=== PATIENT | male | born 1945 ===

== ENCOUNTER 2020-07-10 11:34 | Inpatient (IN) | payer BC, OTHER ==
--- NOTE | 2020-07-10 11:53 | EDM.PDOC ---
ED HPI GENERAL MEDICAL PROBLEM - General Chief Complaint: Respiratory Problem Stated Complaint: SHORTNESS OF BREATH Time Seen by Provider: 07/10/20 11:43 Source of Information: Reports: Patient, Retirement Records (Limited). Denies: Old Records (No [facility] records available) History Limitations: Reports: Altered Mental Status - History of Present Illness INITIAL COMMENTS - FREE TEXT/NARRATIVE: The patient was brought to the emergency room via ambulance with professional housing consultant accompaniment with O2 at 15 L/min by nonrebreather mask with no other treatment in route. The patient tested positive for [facility] the [facility] on 07/01/2020 with only mild symptoms at that time, although he did require supplemental O2 therapy during the initial few days of his infection. He was able to be returned back to room air until 07/07 when he began having progressive dyspnea and O2 requirement with O2 sat of only 85% on 4 L/min and a temperature of 101 degrees shortly prior to transfer to our facility. He is an extremely poor historian secondary to his baseline organic brain syndrome and current illness. More extensive history was obtained from [facility] records and also my personal telephone consultation with his [facility] nurse, Lazara. No apparent recent chest pain/pressure or anginal type symptoms. No known history of nausea, emesis, abdominal pain, UTI symptoms, etc. Onset: Gradual Onset Date: 07/07/20 Duration: Getting Worse Location: Reports: Other Quality: Reports: Same as Previous Episode (No pain) Severity: Severe (Dyspnea) Improves with: Reports: None Worsens with: Reports: None Context: Reports: Sick Contact (As above). Denies: Trauma Associated Symptoms: Reports: Confusion (Stable baseline?), Cough, cough w sputum, Fever/Chills, Shortness of Breath, Weakness (Mild generalized). 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 (As above) - Related Data Allergies Allergy/AdvReac Type Severity Reaction Status Date / Time metformin Allergy Cannot Verified 07/10/20 12:00 Remember Home Meds: Home Meds Acetaminophen [Tylenol] 650 mg PO Q4HR PRN 07/10/20 [History] Ascorbic Acid [Vitamin C] 1,000 mg PO BID 07/10/20 [History] Aspirin [Halfprin] 81 mg PO DAILY 07/10/20 [History] Carbidopa/Levodopa [Carbidopa-Levodopa 25-100] 1 tab PO TID 07/10/20 [History] Cholecalciferol (Vitamin D3) [Vitamin D3] 3,000 unit PO DAILY 07/10/20 [History] Escitalopram [Lexapro] 10 mg PO DAILY 07/10/20 [History] Finasteride 5 mg PO DAILY 07/10/20 [History] Liraglutide [Victoza 3-Rob] 1.8 mg SUBCUT DAILY 07/10/20 [History] Lovastatin 10 mg PO DAILY 07/10/20 [History] Mirtazapine 15 mg PO DAILY 07/10/20 [History] Prazosin [Minpress] 1 mg PO DAILY 07/10/20 [History] amLODIPine [Norvasc] 10 mg PO DAILY 07/10/20 [History] buPROPion HCL [Bupropion Xl] 300 mg PO DAILY 07/10/20 [History] dexAMETHasone [Decadron] 6 mg PO DAILY@199907/10/20 [History] glipiZIDE [Glucotrol] 5 mg PO BID 07/10/20 [History] lisinopriL [Lisinopril] 2.5 mg PO DAILY 07/10/20 [History] Past Medical History HEENT History: Reports: Cataract, Hard of Hearing, Impaired Vision, Other (See Below) Other HEENT History: Bilateral presbycusis. Patient wears glasses. Bilateral lower lid ptosis. Cardiovascular History: Reports: High Cholesterol, Hypertension, Other (See Below) Other Cardiovascular History: Varicose veins. Respiratory History: Reports: Sleep Apnea, Other (See Below) Other Respiratory History: Patient does use CPAP. Gastrointestinal History: Reports: Irritable Bowel Syndrome, Other (See Below) Other Gastrointestinal History: Umbilical hernia Genitourinary History: Reports: BPH, Prostate Disorder (BPH with PSA elevation?), Retention, Urinary, Urinary Incontinence Musculoskeletal History: Reports: Arthritis, Back Pain, Chronic, Osteoarthritis, Other (See Below) Other Musculoskeletal History: Spinal stenosis. Neurological History: Reports: Alzheimers Disease, Parkinson's, Other (See Below) Other Neuro History: Restless leg syndrome. Psychiatric History: Reports: Alzheimers Disease, Anxiety, Dementia, Depression, PTSD, Other (See Below) Other Psychiatric History: PTSD secondary to [place] experience. Endocrine/Metabolic History: Reports: Diabetes, Type II, IDDM Dermatologic History: Reports: Venous Stasis Dermatitis - Infectious Disease History Infectious Disease History: Reports: Novel Coronavirus (Positive on 07/01/2020.) - Past Surgical History Musculoskeletal Surgical History: Reports: Hip Replacement, Joint Replacement, Other (See Below) Other Musculoskeletal Surgeries/Procedures:: Left hip TEP with subsequent dislocation and possible postoperative infection. Other Surgical History Comment: Unknown. Incomplete records. Social & Family History - Family History Family Medical History: Unobtainable - Living Situation & Occupation Living situation: Reports: , Extended Care Facility ([facility]) Occupation: Retired ED ROS GENERAL - Review of Systems Review Of Systems: Comprehensive ROS is negative, except as noted in HPI. (Limited as above) ED EXAM, GENERAL - Physical Exam Exam: See Below Exam Limited By: Altered Mental Status General Appearance: Lethargic (Mild), Moderate Distress (Mild to moderate dyspnea) Eye Exam: Bilateral Eye: EOMI, Normal Inspection, PERRL Ears: Normal External Exam, Normal Canal, Hearing Grossly Normal, Normal TMs Nose: Clear Rhinorrhea Throat/Mouth: Normal Inspection, Normal Lips, Normal Teeth, Normal Gums, Normal Oropharynx, Normal Voice, No Airway Compromise. No: Dysphagia, Perioral Cyanosis Head: Atraumatic, Normocephalic. No: Facial Swelling, Facial Tenderness, Sinus Tenderness Neck: Supple, Non-Tender, Full Range of Motion, Carotid Bruit (Mild bilateral carotid bruits). No: Lymphadenopathy (L), Lymphadenopathy (R), Thyromegaly Respiratory/Chest: Chest Non-Tender, Respiratory Distress (Mild to moderate), Decreased Breath Sounds (As below), Rales (Severe bilateral diffuse rales, right greater than left with decreased breath sounds on the right side), Accessory Muscle Use (Mild), Retractions (Mild intercostal). No: Rhonchi, Wheezing Cardiovascular: Normal Peripheral Pulses, No Edema, No Gallop, No JVD, No Murmur (Heart sounds difficult to auscultate secondary to pulmonary findings as above), No Rub, Tachycardia (Regular rhythm). No: Gallop/S3, Gallop/S4, Friction Rub Peripheral Pulses: 2+: Radial (L), Radial (R), Dorsalis Pedis (L), Dorsalis Pedis (R) GI/Abdominal: Normal Bowel Sounds, Soft, Non-Tender, No Organomegaly, No Distention, No Abnormal Bruit, No Mass, Pelvis Stable, Hernia (2 cm nonincarcerated umbilical hernia), Other (Obese). No: Guarding (Male) Exam: Deferred Rectal (Males) Exam: Deferred Back Exam: Normal Inspection, Full Range of Motion. No: CVA Tenderness (L), CVA Tenderness (R), Muscle Spasm Extremities: Normal Range of Motion, Non-Tender, No Pedal Edema, Normal Capillary Refill, Other (Moderate venous stasis dermatitis of the anterior tibial regions bilaterally). No: Shanta's Sign Neurological: Normal Reflexes (Negative Babinski's with patient not able to perform complete neurological exam), Confused (Mild to moderate? Baseline), Disoriented, Slow to Respond (Mildly lethargic) Psychiatric: Normal Affect, Normal Mood Skin Exam: Dry, Intact, Normal Color, Rash (Venous stasis dermatitis as above). No: Diaphoretic, Ecchymosis, Petechiae, Wound/Incision Lymphatic: No Adenopathy #1 Interpretation EKG Date: 07/10/20 Time: 12:17 Rhythm: A-Flutter Rate (Beats/Min): 121 [place]: Normal (Left cardiac access) P-Wave: Absent QRS: Wide (0.14 seconds with artifactual conduction and probable repolarization changes without true bundle branch block) ST-T: Other (Diffuse nonspecific ST changes secondary to atrial flutter) QT: Normal [place]/PQ Interval: 2:1 AV conduction Comparison: NA - No Prior EKG EKG Interpretation Comments: 1. No acute ischemic changes 2. Atrial flutter with 2:1 AV conduction and secondary tachycardia Course - Vital Signs Last Recorded V/S: Last Vital Signs Temp 36.3 C 07/10/20 11:35 Pulse 120 H 07/10/20 11:35 Resp 32 H 07/10/20 11:35 BP 144/94 H 07/10/20 11:35 Pulse Ox 90 L 07/10/20 11:54 Vital Signs - 24 hr 07/10/20 07/10/20 07/10/20 11:35 11:54 13:54 Temperature [ 36.3 C Temporal] Pulse, 120 H Peripheral [ Left Pulse Oximetry] Respiratory 32 H Rate Blood Pressure 144/94 H [Right Upper Arm] O2 Sat by Pulse 90 L 90 L Oximetry O2 Sat by Pulse 90 L Oximetry [Non- Rebreather Mask ] - Orders/Labs/Meds Orders: Active Orders 24 hr Category Date Time Status Cardiac Monitoring [RC] . DIRECTED Care 07/10/20 11:54 Active EKG Documentation Completion [RC] ASDIRECTED Care 07/10/20 11:54 Active Oxygen Therapy, ED [RC] CONTINUOUS Care 07/10/20 11:54 Active Peripheral IV Care [RC] . DIRECTED Care 07/10/20 11:54 Active Pulse Oximetry [RC] CONTINUOUS Care 07/10/20 11:54 Active Up With Assistance [RC] PFP Care 07/10/20 11:54 Active Vital Signs [RC] PFP Care 07/10/20 11:54 Active Nothing per Oral Now Diet [DIET] Diet 07/10/20 Breakfast Active Chest 1V Frontal [CR] Stat Exams 07/10/20 11:54 Taken CULTURE BLOOD [BC] Stat Lab 07/10/20 12:13 Received CULTURE BLOOD [BC] Stat Lab 07/10/20 12:20 Received CULTURE URINE [RM] Routine Lab 07/10/20 11:58 Ordered UA W/MICROSCOPIC [URIN] Stat Lab 07/10/20 11:55 Ordered Sodium Chloride 0.9% [Saline Flush] Med 07/10/20 11:54 Active 10 ml FLUSH ASDIRECTED PRN cefTRIAXone [Rocephin] 1 gm Med 07/10/20 13:30 Active Sodium Chloride 0.9% [Normal Saline] 100 ml IV Q12H Blood Culture x2 Reflex Set [OM.PC] Urgent Oth 07/10/20 11:58 Ordered Isolation [COMM] Routine Oth 07/10/20 11:57 Active Obtain Past Medical Record [OM.PC] Urgent Oth 07/10/20 11:54 Active Peripheral IV Insertion Adult [OM.PC] Stat Oth 07/10/20 11:54 Ordered Resuscitation Status Stat Resus Stat 07/10/20 11:54 Ordered Medication Orders Ceftriaxone Sodium 1 gm/ (Sodium Chloride) 100 mls @ 200 mls/hr IV Q12H TANNER Sodium Chloride (Saline Flush) 10 ml FLUSH ASDIRECTED PRN PRN Reason: Keep Vein Open Last Admin: 07/10/20 12:46 Dose: 10 ml Documented by: TIANNA Labs: Laboratory Tests 07/10/20 07/10/20 07/10/20 Range/Units 11:45 11:45 11:45 WBC 12.8 H (4.0-10.2) K/uL RBC 4.35 (4.33-5.41) M/uL Hgb 13.6 (13.1-16.8) g/dL Hct 40.6 (39.0-49.0) % MCV 93.3 (84.0-98.0) fL MCH 31.3 (28.2-33.3) pg MCHC 33.5 (31.7-36.0) g/dL RDW 13.2 (11.2-14.1) % Plt Count 164 (150-350) K/uL Neut % (Auto) 94.9 H (45.0-80.0) % Lymph % (Auto) 3.4 L (10.0-50.0) % [place] % (Auto) 1.7 L (2.0-14.0) % Eos % (Auto) 0.0 (0.0-5.0) % Baso % (Auto) 0.0 (0.0-2.0) % Neut # (Auto) 12.10 H (1.40-7.00) K/uL Lymph # (Auto) 0.43 L (0.50-3.50) K/uL [place] # (Auto) 0.22 (0.00-1.00) K/uL Eos # (Auto) 0.00 (0.00-0.50) K/uL Baso # (Auto) 0.00 (0.00-0.20) K/uL PT 11.6 (9.5-12.0) SEC INR 1.2 APTT 29.2 (24.5-32.8) SEC D-Dimer, Quantitative 1070 H (0-400) ng/mL Sodium (136-145) mmol/L Potassium (3.5-5.1) mmol/L Chloride (98-107) mmol/L Carbon Dioxide (21.0-32.0) mmol/L BUN (7-18) mg/dL Creatinine (0.51-1.17) mg/dL Est Cr Clr Drug Dosing mL/min Estimated GFR (MDRD) mL/min Glucose (74-106) mg/dL Lactic Acid (0.4-2.0) mmol/L Uric Acid (2.6-7.2) mg/dL Calcium (8.5-10.1) mg/dL Magnesium (1.8-2.4) mg/dL Total Bilirubin (0.2-1.0) mg/dL AST (15-37) U/L ALT (12-78) U/L Alkaline Phosphatase (46-116) IU/L Creatine Kinase (26-308) U/L Creatine Kinase Index (0.0-2.5) % CK-MB (CK-2) (0.00-3.60) ng/mL Troponin I (0.000-0.056) ng/mL NT-Pro-B Natriuret Pep (0-125) pg/mL Total Protein (6.4-8.2) g/dL Albumin (3.4-5.0) g/dL TSH, Ultra Sensitive (0.358-3.740) mIU/mL 07/10/20 07/10/20 Range/Units 11:45 11:45 WBC (4.0-10.2) K/uL RBC (4.33-5.41) M/uL Hgb (13.1-16.8) g/dL Hct (39.0-49.0) % MCV (84.0-98.0) fL MCH (28.2-33.3) pg MCHC (31.7-36.0) g/dL RDW (11.2-14.1) % Plt Count (150-350) K/uL Neut % (Auto) (45.0-80.0) % Lymph % (Auto) (10.0-50.0) % [place] % (Auto) (2.0-14.0) % Eos % (Auto) (0.0-5.0) % Baso % (Auto) (0.0-2.0) % Neut # (Auto) (1.40-7.00) K/uL Lymph # (Auto) (0.50-3.50) K/uL [place] # (Auto) (0.00-1.00) K/uL Eos # (Auto) (0.00-0.50) K/uL Baso # (Auto) (0.00-0.20) K/uL PT (9.5-12.0) SEC INR APTT (24.5-32.8) SEC D-Dimer, Quantitative (0-400) ng/mL Sodium 134 L (136-145) mmol/L Potassium 4.8 (3.5-5.1) mmol/L Chloride 98 (98-107) mmol/L Carbon Dioxide 25.2 (21.0-32.0) mmol/L BUN 32 H (7-18) mg/dL Creatinine 1.10 (0.51-1.17) mg/dL Est Cr Clr Drug Dosing 74.25 mL/min Estimated GFR (MDRD) > 60 mL/min Glucose 260 H (74-106) mg/dL Lactic Acid 2.5 H (0.4-2.0) mmol/L Uric Acid 4.1 (2.6-7.2) mg/dL Calcium 8.2 L (8.5-10.1) mg/dL Magnesium 1.6 L (1.8-2.4) mg/dL Total Bilirubin 1.1 H (0.2-1.0) mg/dL AST 24 (15-37) U/L ALT 13 (12-78) U/L Alkaline Phosphatase 84 (46-116) IU/L Creatine Kinase 74 (26-308) U/L Creatine Kinase Index 2.0 (0.0-2.5) % CK-MB (CK-2) 1.50 (0.00-3.60) ng/mL Troponin I 0.005 (0.000-0.056) ng/mL NT-Pro-B Natriuret Pep 1980 H (0-125) pg/mL Total Protein 6.6 (6.4-8.2) g/dL Albumin 2.6 L (3.4-5.0) g/dL TSH, Ultra Sensitive 1.251 (0.358-3.740) mIU/mL Blood cultures x2 were collected Meds: Medications Generic Name Dose Route Start Last Admin Trade Name Freq PRN Reason Stop Dose Admin Ceftriaxone Sodium 1 gm/ 100 mls @ 200 mls/hr 07/10/20 13:30 Sodium Chloride IV Q12H TANNER Sodium Chloride 10 ml 07/10/20 11:54 07/10/20 12:46 Saline Flush FLUSH 10 ml ASDIRECTED PRN Administration Keep Vein Open Discontinued Medications Generic Name Dose Route Start Last Admin Trade Name Ashvin PRN Reason Stop Dose Admin Acetaminophen 650 mg 07/10/20 11:58 07/10/20 12:46 Tylenol PO 07/10/20 11:59 650 mg NOW ONE Administration Famotidine 40 mg 07/10/20 11:54 07/10/20 12:46 Pepcid IVPUSH 07/10/20 11:55 40 mg ONETIME ONE Administration - Radiology Interpretation Free Text/Narrative:: property assessment monitor shows atrial flutter with heart rate in the 120s with no ectopy or arrhythmia Chest x-ray, portable, shows severe bilateral pulmonary infiltrates, right greater than left, with mild cardiomegaly and probable concomitant mild CHF. Moderate COPD changes with no pneumothorax. Departure - Departure Time of Disposition: 14:15 Disposition: Admitted As Inpatient 67 Clinical Impression: Need for comfort care, COVID-19, D-dimer, elevated, Hypoalbuminemia, Hypo calcemia, Elevated lactic acid level, Diabetes mellitus, Confusion, Mixed anxiety depressive disorder, Sleep apnea CHF (congestive heart failure) Qualifiers: Heart failure type: unspecified Heart failure chronicity: acute Qualified Code(s): I50.9 - Heart failure, unspecified COPD (chronic obstructive pulmonary disease) Qualifiers: COPD type: COPD with acute lower respiratory infection Qualified Code(s): J44.0 - Chronic obstructive pulmonary disease with (acute) lower respiratory infection Pneumonia Qualifiers: Pneumonia type: due to unspecified organism Laterality: bilateral Lung location: unspecified part of lung Qualified Code(s): J18.9 - Pneumonia, unspecified organism - Discharge Information *PRESCRIPTION DRUG MONITORING PROGRAM REVIEWED*: Not Applicable *COPY OF PRESCRIPTION DRUG MONITORING REPORT IN PATIENT AUSTEN: Not Applicable Referrals: Michelle Padron PA-C [Primary Care Provider] - Forms: ED Department Discharge Care Plan Goals: See plan Sepsis Event Note (ED) - Evaluation Sepsis Screening Result: Possible Sepsis Risk - Focused Exam Vital Signs: Vital Signs Temp Pulse Resp BP Pulse Ox 07/10/20 11:54 90 L 07/10/20 11:35 36.3 C 120 H 32 H 144/94 H 90 L - Problem List & Annotations (1) Pneumonia SNOMED Code(s): 781139391 Code(s): J18.9 - PNEUMONIA, UNSPECIFIED ORGANISM Status: Acute Priority: High Current Visit: Yes Onset Date: 07/10/20 Annotation/Comment:: Possible concomitant pneumonia. IV Rocephin initiated on admission. Additional oral doxycycline therapy secondary to his COVID-19 infection. Secondary to severe pulmonary findings and guarded status initiate additional IV vancomycin. Continue IV Pepcid as GI prophylaxis and as treatment for his COVID-19. Various therapeutic options were discussed with the patient's /POA and daughter, Jeannine, who are requesting initiation of IV remdesivir and continuation of previous oral Decadron, which will be changed to IV preparation. Patient is already on vitamin C, vitamin D, and zinc as per [facility] COVID-19 protocol. The family is also requesting initiation of convalescent plasma, which will not be available until tomorrow. NO CODE STATUS and no further transfer to [place] was confirmed with the family. Continue aggressive O2 therapy with 100% O2 by nonrebreather mask for now. Consider initiating his current CPAP therapy, proning, etc.. Patient may possibly within the next 24 hours. Qualifiers: Pneumonia type: due to unspecified organism Laterality: bilateral Lung location: unspecified part of lung Qualified Code(s): J18.9 - Pneumonia, unspecified organism (2) COVID-19 SNOMED Code(s): 347149349 Code(s): U07.1 - COVID-19 Status: Acute Priority: High Current Visit: Yes Onset Date: ~07/01/20 Annotation/Comment:: COVID-19 positive on 07/01/2020 as above with initial oxygen requirement and improvement to room air at the [facility] with subsequent decompensation as per HPI as above. Prognosis extremely poor. (3) Need for comfort care SNOMED Code(s): 310174619, 035567618 Code(s): CEM5406 - Status: Acute Priority: High Current Visit: Yes Annotation/Comment:: Confirmed with [facility] and patient's /POA and his daughter as above. They are aware that patient may not survive this hospitalization with emotional support provided. (4) Elevated lactic acid level SNOMED Code(s): 1096965 Code(s): R79.89 - OTHER SPECIFIED ABNORMAL FINDINGS OF BLOOD CHEMISTRY Status: Acute Priority: High Current Visit: Yes Onset Date: 07/10/20 Annotation/Comment:: Sepsis protocol initiated, including IV antibiotics as above. Note that the patient's blood pressures are excellent at this time with significant CHF by chest x-ray and BNP elevation. Observe closely for now with consideration of IV lactated Ringer's bolus with caution depending on his clinical course. (5) CHF (congestive heart failure) SNOMED Code(s): 86249635 Code(s): I50.9 - HEART FAILURE, UNSPECIFIED Status: Acute Priority: High Current Visit: Yes Onset Date: 07/10/20 Annotation/Comment:: Patient is a poor historian secondary to his organic brain syndrome. Probable concomitant CHF with IV Lasix to be initiated with caution secondary to his lactic acid elevation shortly after admission. No known previous history of coronary artery disease or CHF. No further work-up, including echocardiogram, etc., secondary to his comfort care status. Qualifiers: Heart failure type: unspecified Heart failure chronicity: acute Qualified Code(s): I50.9 - Heart failure, unspecified (6) D-dimer, elevated SNOMED Code(s): 711841527 Code(s): R79.89 - OTHER SPECIFIED ABNORMAL FINDINGS OF BLOOD CHEMISTRY Status: Acute Priority: High Current Visit: Yes Onset Date: 07/10/20 Annotation/Comment:: Further work-up per the family's request. Venous Doppler studies of the lower extremities and CT of the chest shortly after admission. Initiate subcutaneous Lovenox therapy at VTE dose especially in light of current Covid infection, however downward adjustment depending on the results of above findings (7) Hypoalbuminemia SNOMED Code(s): 256936245 Code(s): E88.09 - OTH DISORDERS OF PLASMA-PROTEIN METABOLISM, NEC Status: Acute Priority: Medium Current Visit: Yes Onset Date: 07/10/20 Annotation/Comment:: Observe for now (8) Hypocalcemia SNOMED Code(s): 9620306 Code(s): E83.51 - HYPOCALCEMIA Status: Acute Priority: Medium Current Visit: Yes Onset Date: 07/10/20 Annotation/Comment:: Observe for now (9) COPD (chronic obstructive pulmonary disease) SNOMED Code(s): 93517666 Code(s): J44.9 - CHRONIC OBSTRUCTIVE PULMONARY DISEASE, UNSPECIFIED Status: Chronic Priority: High Current Visit: Yes Annotation/Comment:: Patient is in a negative pressure room. Nebulizer treatments to be initiated on admission with patient not able to tolerate inhalers at this time. Qualifiers: COPD type: COPD with acute lower respiratory infection Qualified Code(s): J44.0 - Chronic obstructive pulmonary disease with (acute) lower respiratory infection (10) Confusion SNOMED Code(s): 256957839 Code(s): R41.0 - DISORIENTATION, UNSPECIFIED Status: Chronic Priority: Medium Current Visit: Yes Annotation/Comment:: Note history of organic brain syndrome. Stable despite current infection? Note comfort care as above. 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 Observe for now. (13) Sleep apnea SNOMED Code(s): 45340929 Code(s): G47.30 - SLEEP APNEA, UNSPECIFIED Status: Chronic Priority: Medium Current Visit: Yes Annotation/Comment:: As above Qualifiers: Sleep apnea type: unspecified type Qualified Code(s): G47.30 - Sleep apnea, unspecified - Problem List Review Problem List Initiated/Reviewed/Updated: Yes - My Orders Last 24 Hours: My Active Orders 07/10/20 Breakfast Nothing per Oral Now Diet [DIET] 07/10/20 11:54 Cardiac Monitoring [RC] . DIRECTED EKG Documentation Completion [RC] ASDIRECTED Oxygen Therapy, ED [RC] CONTINUOUS Peripheral IV Care [RC] . DIRECTED Pulse Oximetry [RC] CONTINUOUS Up With Assistance [RC] PFP Vital Signs [RC] PFP Chest 1V Frontal [CR] Stat Sodium Chloride 0.9% [Saline Flush] 10 ml FLUSH ASDIRECTED PRN Obtain Past Medical Record [OM.PC] Urgent Peripheral IV Insertion Adult [OM.PC] Stat Resuscitation Status Stat 07/10/20 11:55 UA W/MICROSCOPIC [URIN] Stat 07/10/20 11:57 Isolation [COMM] Routine 07/10/20 11:58 CULTURE URINE [RM] Routine Blood Culture x2 Reflex Set [OM.PC] Urgent 07/10/20 12:13 CULTURE BLOOD [BC] Stat 07/10/20 12:20 CULTURE BLOOD [BC] Stat 07/10/20 13:30 cefTRIAXone [Rocephin] 1 gm Sodium Chloride 0.9% [Normal Saline] 100 ml IV Q12H - Assessment/Plan Last 24 Hours: My Active Orders 07/10/20 Breakfast Nothing per Oral Now Diet [DIET] 07/10/20 11:54 Cardiac Monitoring [RC] . DIRECTED EKG Documentation Completion [RC] ASDIRECTED Oxygen Therapy, ED [RC] CONTINUOUS Peripheral IV Care [RC] . DIRECTED Pulse Oximetry [RC] CONTINUOUS Up With Assistance [RC] PFP Vital Signs [RC] PFP Chest 1V Frontal [CR] Stat Sodium Chloride 0.9% [Saline Flush] 10 ml FLUSH ASDIRECTED PRN Obtain Past Medical Record [OM.PC] Urgent Peripheral IV Insertion Adult [OM.PC] Stat Resuscitation Status Stat 07/10/20 11:55 UA W/MICROSCOPIC [URIN] Stat 07/10/20 11:57 Isolation [COMM] Routine 07/10/20 11:58 CULTURE URINE [RM] Routine Blood Culture x2 Reflex Set [OM.PC] Urgent 07/10/20 12:13 CULTURE BLOOD [BC] Stat 07/10/20 12:20 CULTURE BLOOD [BC] Stat 07/10/20 13:30 cefTRIAXone [Rocephin] 1 gm Sodium Chloride 0.9% [Normal Saline] 100 ml IV Q12H Assessment:: As above Plan: As above. Extensive precautions were given to the patient, who is in agreement with the treatment plan. The patient will require about 3-4 days of inpatient/ acute care secondary to multiple health problems as above. Prognosis is extremely guarded secondary to multiple health issues as above.
[2020-07-10] MEDS ORDERED: Famotidine 20 MG/2 ML SDV IVPUSH ONE (11:54)
--- NOTE | 2020-07-10 11:54 | EDM.PDOC ---
ED HPI GENERAL MEDICAL PROBLEM - General Chief Complaint: Respiratory Problem Stated Complaint: SHORTNESS OF BREATH Time Seen by Provider: 07/10/20 11:45 Source of Information: Reports: Patient - History of Present Illness Onset: Gradual Course - Vital Signs Last Recorded V/S: Last Vital Signs Temp 36.3 C 07/10/20 11:35 Pulse 120 H 07/10/20 11:35 Resp 32 H 07/10/20 11:35 BP 144/94 H 07/10/20 11:35 Pulse Ox 90 L 07/10/20 11:35 Departure - Discharge Information Forms: ED Department Discharge Sepsis Event Note (ED) - Evaluation Sepsis Screening Result: Possible Sepsis Risk - Focused Exam Vital Signs: Vital Signs Temp Pulse Resp BP Pulse Ox 07/10/20 11:35 36.3 C 120 H 32 H 144/94 H 90 L
[2020-07-10] MEDS ORDERED: Acetaminophen 325 MG Tab PO ONE (11:58)
[2020-07-10 12:33] LABS: PTT,PARTIAL THROMBOPLSTIN TIME 29.2 SEC (24.5-32.8)
[2020-07-10 12:46] LABS: CHLORIDE,CL 98 mmol/L (98-107); SODIUM,NA 134 mmol/L (136-145)
[2020-07-10] MEDS: Sodium Chloride 0.9% 10 ML Syringe FLUSH PRN ×6 (12:46→21:03)
[2020-07-10] MEDS ORDERED: cefTRIAXone 1 GM in Sodium Chloride 0.9% 100 ML IV SCH (13:30)
[2020-07-10] MEDS ORDERED: Temazepam 15 MG Cap PO PRN (14:47)
[2020-07-10] MEDS ORDERED: Doxycycline Monohydrate 100 MG Cap PO ONE (14:51)
[2020-07-10] MEDS ORDERED: 50% Dextrose in Water 50 ML Syringe IV PRN (14:54)
[2020-07-10] MEDS ORDERED: Glucagon,Human Recombinant 1 MG Vial IM PRN (14:54)
[2020-07-10] MEDS ORDERED: Sodium Chloride 0.9% 250 ML IV SCH (15:30)
[2020-07-10] MEDS ORDERED: Iopamidol 755 Mg/ML 100 ML Bottle IVPUSH ONE (15:33)
[2020-07-10] MEDS ORDERED: REMDESIVIR 200 MG in Sodium Chloride 0.9% 250 ML IV ONE (16:00)
[2020-07-10] MEDS: Furosemide 40 MG/4 ML VIAL IVPUSH SCH (17:20)
[2020-07-10] MEDS ORDERED: Enoxaparin 100 MG/1 ML Syringe SUBCUT SCH (18:00)
[2020-07-10] MEDS: Potassium Chloride 20 MEQ Tab.ER PO SCH (18:45)
[2020-07-10] MEDS: Dextromethorphan/guaiFENesin 600-30 MG Tab.ER PO SCH (18:45)
[2020-07-10] MEDS: Carbidopa/Levodopa 25-100 MG Tab PO SCH (18:46)
[2020-07-10] MEDS: Ascorbic Acid 500 MG Tab PO SCH (18:46)
[2020-07-10] MEDS: Insulin Lispro 100 Units/ML 3 ML Vial SUBCUT SCH ×2 (18:46→21:07)
[2020-07-10] MEDS: Dexamethasone 10 MG/ML SDV IVPUSH SCH (20:42)
[2020-07-11] MEDS: Furosemide 40 MG/4 ML VIAL IVPUSH SCH ×3 (00:11→16:06)
[2020-07-11] MEDS ORDERED: cefTRIAXone 1 GM in Sodium Chloride 0.9% 100 ML IV SCH (01:00)
[2020-07-11 07:51] LABS: HEMOGLOBIN A1C 6.8 % (4.3-5.7)
[2020-07-11] MEDS: Insulin Lispro 100 Units/ML 3 ML Vial SUBCUT SCH ×4 (07:59→21:23)
[2020-07-11] MEDS ORDERED: amLODIPine 5 MG Tab PO SCH (08:00)
[2020-07-11] MEDS: Sodium Chloride 0.9% 10 ML Syringe FLUSH PRN ×6 (08:02→19:39)
[2020-07-11] MEDS: Cholecalciferol (Vitamin D3) 25 MCG Tab PO SCH (08:05)
[2020-07-11] MEDS: Potassium Chloride 20 MEQ Tab.ER PO SCH ×3 (08:05→17:52)
[2020-07-11] MEDS: buPROPion 150 MG Tab.ER PO SCH (08:06)
[2020-07-11] MEDS: Carbidopa/Levodopa 25-100 MG Tab PO SCH ×3 (08:06→17:52)
[2020-07-11] MEDS: Finasteride 5 MG Tab PO SCH (08:06)
[2020-07-11] MEDS: Dextromethorphan/guaiFENesin 600-30 MG Tab.ER PO SCH ×2 (08:06→17:52)
[2020-07-11] MEDS: Prazosin 1 MG Cap PO SCH (08:06)
[2020-07-11] MEDS: Ascorbic Acid 500 MG Tab PO SCH ×2 (08:06→17:53)
[2020-07-11] MEDS: Mirtazapine 15 MG Tab PO SCH (08:06)
[2020-07-11] MEDS: atorvaSTATin 10 MG Tab PO SCH (08:07)
[2020-07-11] MEDS: Lisinopril 5 MG Tab PO SCH (08:07)
[2020-07-11] MEDS: Escitalopram 20 MG Tab PO SCH (08:08)
[2020-07-11 08:21] LABS: CHLORIDE,CL 98 mmol/L (98-107); SODIUM,NA 136 mmol/L (136-145)
[2020-07-11] MEDS ORDERED: Diltiazem 25 MG/5 ML SDV IVPUSH ONE (09:42)
[2020-07-11] MEDS: Famotidine 20 MG/2 ML SDV IVPUSH SCH (11:10)
--- NOTE | 2020-07-11 11:14 | PCM.PN ---
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 Denies: Ambulating, New Symptoms Pain Score: 0 - Review of Systems General: Reports: Weakness (Stable), Fatigue (Stable). Denies: Fever, Malaise, Chills, Night Sweats, Appetite (Adequate) HEENT: Reports: Post Nasal Drip, Sinus Congestion Pulmonary: Reports: Shortness of Breath, Cough. Denies: Sputum, Hemoptysis, Wheezing Cardiovascular: Reports: Dyspnea on Exertion, Orthopnea. Denies: Chest Pain, Edema Gastrointestinal: Reports: Difficulty Swallowing. Denies: Abdominal Pain, Constipation, Decreased Appetite, Diarrhea, Flatus, Hematochezia, Melena, Nausea, Vomiting Genitourinary: Reports: Incontinence Musculoskeletal: Reports: No Symptoms Skin: Reports: Bruising (Abdominal secondary to Lovenoxexpected). Denies: Diaphoresis Neurological: Reports: Confusion (Stable baseline), Weakness (As above) Psychiatric: Reports: Confusion. Denies: Agitation, Cravings, Hallucinations - Patient Data Vitals - Most Recent: Last Vital Signs Temp 36.2 C 07/11/20 11:01 Pulse 120 H 07/11/20 11:01 Resp 24 H 07/11/20 11:01 BP 109/57 L 07/11/20 11:01 Pulse Ox 88 L 07/11/20 11:01 Vital Signs - 24 hr 07/10/20 07/10/20 07/10/20 11:35 11:54 13:54 Temperature [ 36.3 C Temporal] Pulse, 120 H Peripheral [ Left Pulse Oximetry] Respiratory 32 H Rate Blood Pressure Blood Pressure [Left Upper Arm ] Blood Pressure 144/94 H [Right Upper Arm] O2 Sat by Pulse 90 L 90 L Oximetry O2 Sat by Pulse 90 L Oximetry [Non- Rebreather Mask ] 07/10/20 07/10/20 07/10/20 14:29 14:47 16:47 Temperature [ 36.1 C 36.3 C Temporal] Pulse, 118 H 120 H Peripheral [ Left Pulse Oximetry] Respiratory 32 H 32 H Rate Blood Pressure Blood Pressure 125/77 [Left Upper Arm ] Blood Pressure 127/79 [Right Upper Arm] O2 Sat by Pulse 91 L 90 L 91 L Oximetry O2 Sat by Pulse Oximetry [Non- Rebreather Mask ] 07/10/20 07/10/20 07/11/20 18:00 21:09 00:00 Temperature [ 36.7 C 36.8 C 36.1 C Temporal] Pulse, 118 H 118 H 119 H Peripheral [ Left Pulse Oximetry] Respiratory 32 H 28 H 30 H Rate Blood Pressure Blood Pressure 148/67 H 136/84 112/47 L [Left Upper Arm ] Blood Pressure [Right Upper Arm] O2 Sat by Pulse 90 L 87 L 88 L Oximetry O2 Sat by Pulse Oximetry [Non- Rebreather Mask ] 07/11/20 07/11/20 07/11/20 02:00 04:00 06:00 Temperature [ 36.2 C Temporal] Pulse, 118 H 119 H 120 H Peripheral [ Left Pulse Oximetry] Respiratory 28 H Rate Blood Pressure Blood Pressure 139/88 [Left Upper Arm ] Blood Pressure [Right Upper Arm] O2 Sat by Pulse 94 L 87 L 87 L Oximetry O2 Sat by Pulse Oximetry [Non- Rebreather Mask ] 07/11/20 07/11/20 07/11/20 07:25 08:06 08:07 Temperature [ 36.2 C Temporal] Pulse, 120 H Peripheral [ Left Pulse Oximetry] Respiratory 36 H Rate Blood Pressure 134/70 134/70 Blood Pressure 134/70 [Left Upper Arm ] Blood Pressure [Right Upper Arm] O2 Sat by Pulse 90 L Oximetry O2 Sat by Pulse Oximetry [Non- Rebreather Mask ] 07/11/20 11:01 Temperature [ 36.2 C Temporal] Pulse, 120 H Peripheral [ Left Pulse Oximetry] Respiratory 24 H Rate Blood Pressure Blood Pressure 109/57 L [Left Upper Arm ] Blood Pressure [Right Upper Arm] O2 Sat by Pulse 88 L Oximetry O2 Sat by Pulse Oximetry [Non- Rebreather Mask ] Weight - Most Recent: 125.645 kg I&O - Last 24 Hours: Intake & Output 07/10/20 07/11/20 07/11/20 22:59 06:59 14:59 Intake Total 792 Output Total 1500 Balance -708 Imaging Impressions - Last 24 Hours: panel monitor shows atrial flutter with heart rate in the 110s to 120s Chest x-ray, portable, shows persistent moderate bilateral pulmonary infiltrates particularly in the right upper lobe. Moderate COPD changes with mild cardiomegaly and probable concomitant CHF with Mickey B lines. No pneumothorax Lab Results Last 24 Hours: Laboratory Results - last 24 hr 07/10/20 07/10/20 07/10/20 Range/Units 11:45 11:45 11:45 WBC 12.8 H (4.0-10.2) K/uL RBC 4.35 (4.33-5.41) M/uL Hgb 13.6 (13.1-16.8) g/dL Hct 40.6 (39.0-49.0) % MCV 93.3 (84.0-98.0) fL MCH 31.3 (28.2-33.3) pg MCHC 33.5 (31.7-36.0) g/dL RDW 13.2 (11.2-14.1) % Plt Count 164 (150-350) K/uL Neut % (Auto) 94.9 H (45.0-80.0) % Lymph % (Auto) 3.4 L (10.0-50.0) % Phillips % (Auto) 1.7 L (2.0-14.0) % Eos % (Auto) 0.0 (0.0-5.0) % Baso % (Auto) 0.0 (0.0-2.0) % Neut # (Auto) 12.10 H (1.40-7.00) K/uL Lymph # (Auto) 0.43 L (0.50-3.50) K/uL Phillips # (Auto) 0.22 (0.00-1.00) K/uL Eos # (Auto) 0.00 (0.00-0.50) K/uL Baso # (Auto) 0.00 (0.00-0.20) K/uL PT 11.6 (9.5-12.0) SEC INR 1.2 APTT 29.2 (24.5-32.8) SEC D-Dimer, Quantitative 1070 H (0-400) ng/mL Sodium (136-145) mmol/L Potassium (3.5-5.1) mmol/L Chloride (98-107) mmol/L Carbon Dioxide (21.0-32.0) mmol/L BUN (7-18) mg/dL Creatinine (0.51-1.17) mg/dL Est Cr Clr Drug Dosing mL/min Estimated GFR (MDRD) mL/min Glucose (74-106) mg/dL POC Glucose (65-110) mg/dl Hemoglobin A1c (4.3-5.7) % Lactic Acid (0.4-2.0) mmol/L Uric Acid (2.6-7.2) mg/dL Calcium (8.5-10.1) mg/dL Magnesium (1.8-2.4) mg/dL Total Bilirubin (0.2-1.0) mg/dL AST (15-37) U/L ALT (12-78) U/L Alkaline Phosphatase (46-116) IU/L Creatine Kinase (26-308) U/L Creatine Kinase Index (0.0-2.5) % CK-MB (CK-2) (0.00-3.60) ng/mL Troponin I (0.000-0.056) ng/mL C-Reactive Protein (<=0.9) mg/dL NT-Pro-B Natriuret Pep (0-125) pg/mL Total Protein (6.4-8.2) g/dL Albumin (3.4-5.0) g/dL Triglycerides (30-150) mg/dL Cholesterol (100-200) mg/dL LDL Cholesterol, Calc (0-100) mg/dL HDL Cholesterol (40-60) mg/dL TSH, Ultra Sensitive (0.358-3.740) mIU/mL Specimen Type Urine Color Urine Appearance Urine pH (5.0-9.0) Ur Specific Leslie (1.005-1.030) Urine Protein (NEGATIVE) mg/dL Urine Glucose (UA) (NEGATIVE) mg/dL Urine Ketones (NEGATIVE) mg/dL Urine Occult Blood (NEGATIVE) Urine Nitrite (NEGATIVE) Urine Bilirubin (NEGATIVE) Urine Urobilinogen (0.2-1.0) E.U./dL Ur Leukocyte Esterase (NEGATIVE) Urine RBC /HPF Urine WBC /HPF Ur Epithelial Cells /LPF Urine Bacteria (NONE TO FEW) /HPF Blood Type 07/10/20 07/10/20 07/10/20 Range/Units 11:45 11:45 15:16 WBC (4.0-10.2) K/uL RBC (4.33-5.41) M/uL Hgb (13.1-16.8) g/dL Hct (39.0-49.0) % MCV (84.0-98.0) fL MCH (28.2-33.3) pg MCHC (31.7-36.0) g/dL RDW (11.2-14.1) % Plt Count (150-350) K/uL Neut % (Auto) (45.0-80.0) % Lymph % (Auto) (10.0-50.0) % Phillips % (Auto) (2.0-14.0) % Eos % (Auto) (0.0-5.0) % Baso % (Auto) (0.0-2.0) % Neut # (Auto) (1.40-7.00) K/uL Lymph # (Auto) (0.50-3.50) K/uL Phillips # (Auto) (0.00-1.00) K/uL Eos # (Auto) (0.00-0.50) K/uL Baso # (Auto) (0.00-0.20) K/uL PT (9.5-12.0) SEC INR APTT (24.5-32.8) SEC D-Dimer, Quantitative (0-400) ng/mL Sodium 134 L (136-145) mmol/L Potassium 4.8 (3.5-5.1) mmol/L Chloride 98 (98-107) mmol/L Carbon Dioxide 25.2 (21.0-32.0) mmol/L BUN 32 H (7-18) mg/dL Creatinine 1.10 (0.51-1.17) mg/dL Est Cr Clr Drug Dosing 74.25 mL/min Estimated GFR (MDRD) > 60 mL/min Glucose 260 H (74-106) mg/dL POC Glucose (65-110) mg/dl Hemoglobin A1c (4.3-5.7) % Lactic Acid 2.5 H (0.4-2.0) mmol/L Uric Acid 4.1 (2.6-7.2) mg/dL Calcium 8.2 L (8.5-10.1) mg/dL Magnesium 1.6 L (1.8-2.4) mg/dL Total Bilirubin 1.1 H (0.2-1.0) mg/dL AST 24 (15-37) U/L ALT 13 (12-78) U/L Alkaline Phosphatase 84 (46-116) IU/L Creatine Kinase 74 (26-308) U/L Creatine Kinase Index 2.0 (0.0-2.5) % CK-MB (CK-2) 1.50 (0.00-3.60) ng/mL Troponin I 0.005 (0.000-0.056) ng/mL C-Reactive Protein (<=0.9) mg/dL NT-Pro-B Natriuret Pep 1980 H (0-125) pg/mL Total Protein 6.6 (6.4-8.2) g/dL Albumin 2.6 L (3.4-5.0) g/dL Triglycerides (30-150) mg/dL Cholesterol (100-200) mg/dL LDL Cholesterol, Calc (0-100) mg/dL HDL Cholesterol (40-60) mg/dL TSH, Ultra Sensitive 1.251 (0.358-3.740) mIU/mL Specimen Type Urine Color Urine Appearance Urine pH (5.0-9.0) Ur Specific Leslie (1.005-1.030) Urine Protein (NEGATIVE) mg/dL Urine Glucose (UA) (NEGATIVE) mg/dL Urine Ketones (NEGATIVE) mg/dL Urine Occult Blood (NEGATIVE) Urine Nitrite (NEGATIVE) Urine Bilirubin (NEGATIVE) Urine Urobilinogen (0.2-1.0) E.U./dL Ur Leukocyte Esterase (NEGATIVE) Urine RBC /HPF Urine WBC /HPF Ur Epithelial Cells /LPF Urine Bacteria (NONE TO FEW) /HPF Blood Type O POSITIVE 07/10/20 07/10/20 07/10/20 Range/Units 16:45 16:45 17:17 WBC (4.0-10.2) K/uL RBC (4.33-5.41) M/uL Hgb (13.1-16.8) g/dL Hct (39.0-49.0) % MCV (84.0-98.0) fL MCH (28.2-33.3) pg MCHC (31.7-36.0) g/dL RDW (11.2-14.1) % Plt Count (150-350) K/uL Neut % (Auto) (45.0-80.0) % Lymph % (Auto) (10.0-50.0) % Phillips % (Auto) (2.0-14.0) % Eos % (Auto) (0.0-5.0) % Baso % (Auto) (0.0-2.0) % Neut # (Auto) (1.40-7.00) K/uL Lymph # (Auto) (0.50-3.50) K/uL Phillips # (Auto) (0.00-1.00) K/uL Eos # (Auto) (0.00-0.50) K/uL Baso # (Auto) (0.00-0.20) K/uL PT (9.5-12.0) SEC INR APTT (24.5-32.8) SEC D-Dimer, Quantitative (0-400) ng/mL Sodium (136-145) mmol/L Potassium (3.5-5.1) mmol/L Chloride (98-107) mmol/L Carbon Dioxide (21.0-32.0) mmol/L BUN (7-18) mg/dL Creatinine (0.51-1.17) mg/dL Est Cr Clr Drug Dosing mL/min Estimated GFR (MDRD) mL/min Glucose (74-106) mg/dL POC Glucose 211 H (65-110) mg/dl Hemoglobin A1c (4.3-5.7) % Lactic Acid 1.9 (0.4-2.0) mmol/L Uric Acid (2.6-7.2) mg/dL Calcium (8.5-10.1) mg/dL Magnesium (1.8-2.4) mg/dL Total Bilirubin (0.2-1.0) mg/dL AST (15-37) U/L ALT (12-78) U/L Alkaline Phosphatase (46-116) IU/L Creatine Kinase 59 (26-308) U/L Creatine Kinase Index 2.4 (0.0-2.5) % CK-MB (CK-2) 1.40 (0.00-3.60) ng/mL Troponin I 0.000 (0.000-0.056) ng/mL C-Reactive Protein (<=0.9) mg/dL NT-Pro-B Natriuret Pep (0-125) pg/mL Total Protein (6.4-8.2) g/dL Albumin (3.4-5.0) g/dL Triglycerides (30-150) mg/dL Cholesterol (100-200) mg/dL LDL Cholesterol, Calc (0-100) mg/dL HDL Cholesterol (40-60) mg/dL TSH, Ultra Sensitive (0.358-3.740) mIU/mL Specimen Type Urine Color Urine Appearance Urine pH (5.0-9.0) Ur Specific Leslie (1.005-1.030) Urine Protein (NEGATIVE) mg/dL Urine Glucose (UA) (NEGATIVE) mg/dL Urine Ketones (NEGATIVE) mg/dL Urine Occult Blood (NEGATIVE) Urine Nitrite (NEGATIVE) Urine Bilirubin (NEGATIVE) Urine Urobilinogen (0.2-1.0) E.U./dL Ur Leukocyte Esterase (NEGATIVE) Urine RBC /HPF Urine WBC /HPF Ur Epithelial Cells /LPF Urine Bacteria (NONE TO FEW) /HPF Blood Type 07/10/20 07/10/20 07/11/20 Range/Units 21:04 21:07 07:30 WBC 8.1 (4.0-10.2) K/uL RBC 4.40 (4.33-5.41) M/uL Hgb 13.6 (13.1-16.8) g/dL Hct 41.1 (39.0-49.0) % MCV 93.4 (84.0-98.0) fL MCH 30.9 (28.2-33.3) pg MCHC 33.1 (31.7-36.0) g/dL RDW 13.3 (11.2-14.1) % Plt Count 165 (150-350) K/uL Neut % (Auto) 93.5 H (45.0-80.0) % Lymph % (Auto) 4.2 L (10.0-50.0) % Phillips % (Auto) 2.3 (2.0-14.0) % Eos % (Auto) 0.0 (0.0-5.0) % Baso % (Auto) 0.0 (0.0-2.0) % Neut # (Auto) 7.58 H (1.40-7.00) K/uL Lymph # (Auto) 0.34 L (0.50-3.50) K/uL Phillips # (Auto) 0.19 (0.00-1.00) K/uL Eos # (Auto) 0.00 (0.00-0.50) K/uL Baso # (Auto) 0.00 (0.00-0.20) K/uL PT (9.5-12.0) SEC INR APTT (24.5-32.8) SEC D-Dimer, Quantitative (0-400) ng/mL Sodium (136-145) mmol/L Potassium (3.5-5.1) mmol/L Chloride (98-107) mmol/L Carbon Dioxide (21.0-32.0) mmol/L BUN (7-18) mg/dL Creatinine (0.51-1.17) mg/dL Est Cr Clr Drug Dosing mL/min Estimated GFR (MDRD) mL/min Glucose (74-106) mg/dL POC Glucose 204 H (65-110) mg/dl Hemoglobin A1c (4.3-5.7) % Lactic Acid (0.4-2.0) mmol/L Uric Acid (2.6-7.2) mg/dL Calcium (8.5-10.1) mg/dL Magnesium (1.8-2.4) mg/dL Total Bilirubin (0.2-1.0) mg/dL AST (15-37) U/L ALT (12-78) U/L Alkaline Phosphatase (46-116) IU/L Creatine Kinase (26-308) U/L Creatine Kinase Index (0.0-2.5) % CK-MB (CK-2) (0.00-3.60) ng/mL Troponin I (0.000-0.056) ng/mL C-Reactive Protein (<=0.9) mg/dL NT-Pro-B Natriuret Pep (0-125) pg/mL Total Protein (6.4-8.2) g/dL Albumin (3.4-5.0) g/dL Triglycerides (30-150) mg/dL Cholesterol (100-200) mg/dL LDL Cholesterol, Calc (0-100) mg/dL HDL Cholesterol (40-60) mg/dL TSH, Ultra Sensitive (0.358-3.740) mIU/mL Specimen Type Urinvoid Urine Color Yellow Urine Appearance Clear Urine pH 5.0 (5.0-9.0) Ur Specific Leslie 1.015 (1.005-1.030) Urine Protein Negative (NEGATIVE) mg/dL Urine Glucose (UA) Negative (NEGATIVE) mg/dL Urine Ketones Negative (NEGATIVE) mg/dL Urine Occult Blood Negative (NEGATIVE) Urine Nitrite Negative (NEGATIVE) Urine Bilirubin Negative (NEGATIVE) Urine Urobilinogen 0.2 (0.2-1.0) E.U./dL Ur Leukocyte Esterase Negative (NEGATIVE) Urine RBC Not seen /HPF Urine WBC 0-5 /HPF Ur Epithelial Cells Rare /LPF Urine Bacteria Few (NONE TO FEW) /HPF Blood Type 07/11/20 07/11/20 07/11/20 Range/Units 07:30 07:30 07:30 WBC (4.0-10.2) K/uL RBC (4.33-5.41) M/uL Hgb (13.1-16.8) g/dL Hct (39.0-49.0) % MCV (84.0-98.0) fL MCH (28.2-33.3) pg MCHC (31.7-36.0) g/dL RDW (11.2-14.1) % Plt Count (150-350) K/uL Neut % (Auto) (45.0-80.0) % Lymph % (Auto) (10.0-50.0) % Phillips % (Auto) (2.0-14.0) % Eos % (Auto) (0.0-5.0) % Baso % (Auto) (0.0-2.0) % Neut # (Auto) (1.40-7.00) K/uL Lymph # (Auto) (0.50-3.50) K/uL Phillips # (Auto) (0.00-1.00) K/uL Eos # (Auto) (0.00-0.50) K/uL Baso # (Auto) (0.00-0.20) K/uL PT (9.5-12.0) SEC INR APTT (24.5-32.8) SEC D-Dimer, Quantitative 1460 H (0-400) ng/mL Sodium 136 (136-145) mmol/L Potassium 4.1 (3.5-5.1) mmol/L Chloride 98 (98-107) mmol/L Carbon Dioxide 25.9 (21.0-32.0) mmol/L BUN 33 H (7-18) mg/dL Creatinine 1.08 (0.51-1.17) mg/dL Est Cr Clr Drug Dosing 75.95 mL/min Estimated GFR (MDRD) > 60 mL/min Glucose 220 H (74-106) mg/dL POC Glucose (65-110) mg/dl Hemoglobin A1c 6.8 H (4.3-5.7) % Lactic Acid (0.4-2.0) mmol/L Uric Acid (2.6-7.2) mg/dL Calcium 8.5 (8.5-10.1) mg/dL Magnesium (1.8-2.4) mg/dL Total Bilirubin 0.7 (0.2-1.0) mg/dL AST 21 (15-37) U/L ALT 19 (12-78) U/L Alkaline Phosphatase 78 (46-116) IU/L Creatine Kinase 51 (26-308) U/L Creatine Kinase Index 2.9 H (0.0-2.5) % CK-MB (CK-2) 1.50 (0.00-3.60) ng/mL Troponin I 0.000 (0.000-0.056) ng/mL C-Reactive Protein 43.5 H (<=0.9) mg/dL NT-Pro-B Natriuret Pep 1714 H (0-125) pg/mL Total Protein 7.0 (6.4-8.2) g/dL Albumin 2.4 L (3.4-5.0) g/dL Triglycerides 60 (30-150) mg/dL Cholesterol 102 (100-200) mg/dL LDL Cholesterol, Calc 34 (0-100) mg/dL HDL Cholesterol 56 (40-60) mg/dL TSH, Ultra Sensitive (0.358-3.740) mIU/mL Specimen Type Urine Color Urine Appearance Urine pH (5.0-9.0) Ur Specific Leslie (1.005-1.030) Urine Protein (NEGATIVE) mg/dL Urine Glucose (UA) (NEGATIVE) mg/dL Urine Ketones (NEGATIVE) mg/dL Urine Occult Blood (NEGATIVE) Urine Nitrite (NEGATIVE) Urine Bilirubin (NEGATIVE) Urine Urobilinogen (0.2-1.0) E.U./dL Ur Leukocyte Esterase (NEGATIVE) Urine RBC /HPF Urine WBC /HPF Ur Epithelial Cells /LPF Urine Bacteria (NONE TO FEW) /HPF Blood Type 07/11/20 07/11/20 Range/Units 07:30 07:34 WBC (4.0-10.2) K/uL RBC (4.33-5.41) M/uL Hgb (13.1-16.8) g/dL Hct (39.0-49.0) % MCV (84.0-98.0) fL MCH (28.2-33.3) pg MCHC (31.7-36.0) g/dL RDW (11.2-14.1) % Plt Count (150-350) K/uL Neut % (Auto) (45.0-80.0) % Lymph % (Auto) (10.0-50.0) % Phillips % (Auto) (2.0-14.0) % Eos % (Auto) (0.0-5.0) % Baso % (Auto) (0.0-2.0) % Neut # (Auto) (1.40-7.00) K/uL Lymph # (Auto) (0.50-3.50) K/uL Phillips # (Auto) (0.00-1.00) K/uL Eos # (Auto) (0.00-0.50) K/uL Baso # (Auto) (0.00-0.20) K/uL PT (9.5-12.0) SEC INR APTT (24.5-32.8) SEC D-Dimer, Quantitative (0-400) ng/mL Sodium (136-145) mmol/L Potassium (3.5-5.1) mmol/L Chloride (98-107) mmol/L Carbon Dioxide (21.0-32.0) mmol/L BUN (7-18) mg/dL Creatinine (0.51-1.17) mg/dL Est Cr Clr Drug Dosing mL/min Estimated GFR (MDRD) mL/min Glucose (74-106) mg/dL POC Glucose 216 H (65-110) mg/dl Hemoglobin A1c (4.3-5.7) % Lactic Acid 1.8 (0.4-2.0) mmol/L Uric Acid (2.6-7.2) mg/dL Calcium (8.5-10.1) mg/dL Magnesium (1.8-2.4) mg/dL Total Bilirubin (0.2-1.0) mg/dL AST (15-37) U/L ALT (12-78) U/L Alkaline Phosphatase (46-116) IU/L Creatine Kinase (26-308) U/L Creatine Kinase Index (0.0-2.5) % CK-MB (CK-2) (0.00-3.60) ng/mL Troponin I (0.000-0.056) ng/mL C-Reactive Protein (<=0.9) mg/dL NT-Pro-B Natriuret Pep (0-125) pg/mL Total Protein (6.4-8.2) g/dL Albumin (3.4-5.0) g/dL Triglycerides (30-150) mg/dL Cholesterol (100-200) mg/dL LDL Cholesterol, Calc (0-100) mg/dL HDL Cholesterol (40-60) mg/dL TSH, Ultra Sensitive (0.358-3.740) mIU/mL Specimen Type Urine Color Urine Appearance Urine pH (5.0-9.0) Ur Specific Leslie (1.005-1.030) Urine Protein (NEGATIVE) mg/dL Urine Glucose (UA) (NEGATIVE) mg/dL Urine Ketones (NEGATIVE) mg/dL Urine Occult Blood (NEGATIVE) Urine Nitrite (NEGATIVE) Urine Bilirubin (NEGATIVE) Urine Urobilinogen (0.2-1.0) E.U./dL Ur Leukocyte Esterase (NEGATIVE) Urine RBC /HPF Urine WBC /HPF Ur Epithelial Cells /LPF Urine Bacteria (NONE TO FEW) /HPF Blood Type Ricki Results Last 24 Hours: Microbiology 07/10/20 12:20 Aerobic Blood Culture - Preliminary Blood - Venous - Lab Draw 07/10/20 12:13 Aerobic Blood Culture - Preliminary Blood - Venous Gram Positive Cocci Anaerobic Blood Culture - Preliminary 07/10/20 12:35 Influenza Type A Antigen Screen - Final Nasal, Unspecified NEGATIVE INFLUENZA A VIRUS AG REFERENCE RANGE: NEGATIVE Influenza Type B Antigen Screen - Final NEGATIVE INFLUENZA B VIRUS AG REFERENCE RANGE: NEGATIVE Med Orders - Current: Current Medications Acetaminophen (Tylenol) 650 mg PO Q4H PRN PRN Reason: Pain Amlodipine Besylate (Norvasc) 10 mg PO DAILY [facility] Last Admin: 07/11/20 08:07 Dose: 10 mg Documented by: Ascorbic Acid (Vitamin C) 1,000 mg PO BID [facility] Last Admin: 07/11/20 08:06 Dose: 1,000 mg Documented by: Atorvastatin Calcium (Lipitor) 5 mg PO DAILY [facility] Last Admin: 07/11/20 08:07 Dose: 5 mg Documented by: Bupropion HCl (Wellbutrin Xl) 300 mg PO DAILY [facility] Last Admin: 07/11/20 08:06 Dose: 300 mg Documented by: Carbidopa/Levodopa (Sinemet 25-100 Mg) 1 tab PO TID [facility] Last Admin: 07/11/20 08:06 Dose: 1 tab Documented by: Cholecalciferol (Vitamin D3) 75 mcg PO DAILY [facility] Last Admin: 07/11/20 08:05 Dose: 75 mcg Documented by: Dexamethasone (Decadron) 6 mg IVPUSH Q24H [facility] Last Admin: 07/10/20 20:42 Dose: 6 mg Documented by: Dextrose/Water (Dextrose 50% In Water) 50 ml IV ASDIRECTED PRN PRN Reason: Hypoglycemia Enoxaparin Sodium (Lovenox) 100 mg SUBCUT Q24H [facility] Last Admin: 07/10/20 18:50 Dose: 100 mg Documented by: Escitalopram Oxalate (Lexapro) 10 mg PO DAILY [facility] Last Admin: 07/11/20 08:08 Dose: 10 mg Documented by: Famotidine (Pepcid) 20 mg IVPUSH Q24H [facility] Finasteride (Proscar) 5 mg PO DAILY [facility] Last Admin: 07/11/20 08:06 Dose: 5 mg Documented by: Furosemide (Lasix) 40 mg IVPUSH Q8H [facility] Last Admin: 07/11/20 08:01 Dose: 40 mg Documented by: Glucagon (Glucagen) 1 mg IM ASDIRECTED PRN PRN Reason: Hypoglycemia Guaifenesin/Dextromethorphan (Mucinex Dm Er 600-30 Mg) 1 tab PO BID [facility] Last Admin: 07/11/20 08:06 Dose: 1 tab Documented by: Sodium Chloride (Normal Saline) 250 mls @ 20 mls/hr IV ASDIRECTED [facility] Last Admin: 07/10/20 21:00 Dose: 20 mls/hr Documented by: Ceftriaxone Sodium 1 gm/ (Sodium Chloride) 100 mls @ 200 mls/hr IV Q12H [facility] Last Admin: 07/11/20 00:11 Dose: 200 mls/hr Documented by: Remdesivir 100 mg/ Sodium (Chloride) 270 mls @ 270 mls/hr IV Q24H [facility] Stop: 07/15/20 18:01 Vancomycin HCl 1.5 gm/ Premix 300 mls @ 200 mls/hr IV Q24H [facility] Insulin Human Lispro (Humalog) 0 unit SUBCUT QIDACANDBED [facility]; Protocol Last Admin: 07/11/20 07:59 Dose: 4 units Documented by: Lisinopril (Prinivil) 2.5 mg PO DAILY [facility] Last Admin: 07/11/20 08:07 Dose: 2.5 mg Documented by: Mirtazapine (Remeron) 15 mg PO DAILY [facility] Last Admin: 07/11/20 08:06 Dose: 15 mg Documented by: Potassium Chloride (Klor-Con M20) 20 meq PO TID [facility] Last Admin: 07/11/20 08:05 Dose: 20 meq Documented by: Prazosin HCl (Minpress) 1 mg PO DAILY [facility] Last Admin: 07/11/20 08:06 Dose: 1 mg Documented by: Sodium Chloride (Saline Flush) 10 ml FLUSH ASDIRECTED PRN PRN Reason: Keep Vein Open Last Admin: 07/11/20 08:02 Dose: 10 ml Documented by: Sodium Chloride (Saline Flush) 10 ml FLUSH Q12HR PRN PRN Reason: Keep Vein Open Last Admin: 07/10/20 21:03 Dose: 10 ml Documented by: Temazepam (Restoril) 15 mg PO BEDTIME PRN PRN Reason: Insomnia Vancomycin HCl (Pharmacy To Dose - Vancomycin) 1 dose .XX ASDIRECTED [facility] Discontinued Medications Acetaminophen (Tylenol) 650 mg PO NOW ONE Stop: 07/10/20 11:59 Last Admin: 07/10/20 12:46 Dose: 650 mg Documented by: Diltiazem HCl (Diltiazem) 20 mg IVPUSH ONETIME ONE Stop: 07/11/20 09:43 Doxycycline Monohydrate (Doxycycline Monohydrate) 100 mg PO ONETIME ONE Stop: 11/18/20 14:52 Last Admin: 07/10/20 17:19 Dose: 100 mg Documented by: Famotidine (Pepcid) 40 mg IVPUSH ONETIME ONE Stop: 07/10/20 11:55 Last Admin: 07/10/20 12:46 Dose: 40 mg Documented by: Ceftriaxone Sodium 1 gm/ (Sodium Chloride) 100 mls @ 200 mls/hr IV Q12H [facility] Last Admin: 07/10/20 13:56 Dose: 200 mls/hr Documented by: Vancomycin HCl 1.5 gm/ Premix 300 mls @ 200 mls/hr IV Q24H [facility] Last Admin: 07/10/20 20:42 Dose: 200 mls/hr Documented by: Remdesivir 200 mg/ Sodium (Chloride) 290 mls @ 290 mls/hr IV ONETIME ONE Stop: 07/10/20 16:59 Last Admin: 07/10/20 18:27 Dose: 290 mls/hr Documented by: Vancomycin HCl 1.5 gm/ Premix 300 mls @ 200 mls/hr IV Q24H [facility] Vancomycin HCl 1.5 gm/ Premix 300 mls @ 200 mls/hr IV Q24H [facility] Last Admin: 07/10/20 22:23 Dose: Not Given Documented by: Iopamidol ([id number] (76%)) 100 ml IVPUSH ONETIME ONE Stop: 07/10/20 15:34 Last Admin: 07/10/20 18:22 Dose: 100 ml Documented by: - Exam Quality Assessment: Supplemental Oxygen (100% nonrebreather mask with 15 L/min by nasal cannula), DVT Prophylaxis (Lovenox). No: Urine Catheter, Skin Breakdown, Restraints General: Alert, Cooperative, Mild Distress (Mild dyspnea). No: Oriented (Stable confusion) HEENT: Pupils Equal, Pupils Reactive, EOMI, Mucous Membr. Moist/[place] Neck: Supple, Trachea Midline, No JVD, No Thyromegaly. No: Lymphadenopathy Lungs: Decreased Breath Sounds (Diffuse bilateral), Rales (Moderate diffuse bilateral right greater than leftstable). No: Rhonchi, Rub, Wheezing Cardiovascular: Regular Rhythm, No Murmurs, Tachycardia. No: Gallops, Rubs GI/Abdominal Exam: Normal Bowel Sounds, Soft, Non-Tender, No Organomegaly, No Distention, No Abnormal Bruit, No Mass. No: Guarding (Male) Exam: Deferred Back Exam: Normal Inspection, Full Range of Motion. No: CVA Tenderness (L), CVA Tenderness (R), Muscle Spasm Extremities: Normal Inspection, Normal Range of Motion, Non-Tender, No Pedal Edema, Normal Capillary Refill, Other (Stable moderate venous stasis dermatitis of the lower extremities). No: Shanta's Sign Peripheral Pulses: 2+: Radial (L), Radial (R), Dorsalis Pedis (L), Dorsalis Pedis (R) Skin: Rash (Venous stasis dermatitis as above), Ecchymosis (Abdominal as above) Neurological: No New Focal Deficit, Other (Negative Babinski's. Stable confusion as above) Psy/Mental Status: Alert, Normal Affect, Normal Mood. No: Agitated, Hallucinations, Withdrawal Symptoms #1 Interpretation EKG Date: 07/11/20 Time: 08:35 Rhythm: A-Flutter (2:1) Rate (Beats/Min): 119 [place]: Normal (Left cardiac access) P-Wave: Variable (Atrial flutter) QRS: Normal (0.08 seconds) ST-T: Other (Difficult to assess however cannot rule out ST depressions in leads II, III, aVF and V1 through V3) QT: Normal [place]/PQ Interval: Not applicable Comparison: Change From Previous EKG (Possible inferoanterior ischemia since 07/10/2020) EKG Interpretation Comments: 1. Possible inferoanterior cardiac ischemia 2. Atrial flutter with 2:1 conduction and tachycardia Sepsis Event Note - Evaluation Sepsis Screening Result: Sepsis Risk - Focused Exam Vital Signs: Vital Signs Temp Pulse Resp BP BP Pulse Ox 07/11/20 11:01 36.2 C 120 H 24 H 109/57 L 88 L 07/11/20 08:07 134/70 07/11/20 08:06 134/70 07/11/20 07:25 36.2 C 120 H 36 H 134/70 90 L 07/11/20 06:00 120 H 87 L 07/11/20 04:00 36.2 C 119 H 28 H 139/88 87 L 07/11/20 02:00 118 H 94 L 07/11/20 00:00 36.1 C 119 H 30 H 112/47 L 88 L - Problem List & Annotations (1) Pneumonia SNOMED Code(s): 685266402 Code(s): J18.9 - PNEUMONIA, UNSPECIFIED ORGANISM Status: Acute Priority: High Current Visit: Yes Onset Date: 07/10/20 Qualifiers: Pneumonia type: due to unspecified organism Laterality: bilateral Lung location: unspecified part of lung Qualified Code(s): J18.9 - Pneumonia, unspecified organism Annotation/Comment:: Positive blood cultures for gram-positive rods on 07/11 from blood cultures drawn on admission with sensitivity pending likely secondary to initially suspected concomitant bilateral pneumonia. IV Rocephin initiated on admission. Additional oral doxycycline therapy secondary to his COVID-19 infection. Secondary to severe pulmonary findings and guarded status additional IV vancomycin was initiated admission with pharmacy consultation at that time. Continue IV Pepcid as GI prophylaxis and as treatment for his COVID-19. Various therapeutic options were discussed by telephone on 07/10/2020 with the patient's /POA and daughter, Jeannine, who requested initiation of IV remdesivir and continuation of previous oral Decadron, which will be changed to IV preparation. Patient is already on vitamin C, vitamin D, and zinc as per jail COVID- 19 protocol. The family is also requesting initiation of convalescent plasma, which was initiated on 07/11. Prognosis is still guarded today. Repeat telephone consultation with the patient's daughter, Jeannine at [phone], updating her on patient's current health status and treatment plan. NO CODE STATUS and no further transfer to [place] was confirmed with the family prior to admission. Continue aggressive O2 therapy with 100% O2 by nonrebreather mask for now. The patient apparently no longer has his CPAP. Continue proning, etc.. The patient's family is aware that he may possibly during this hospitalization. Emotional support and prayers were provided. (2) COVID-19 SNOMED Code(s): 391570949 Code(s): U07.1 - COVID-19 Status: Acute Priority: High Current Visit: Yes Onset Date: ~07/01/20 Annotation/Comment:: COVID-19 positive on 07/01/2020 as above with initial oxygen requirement and improvement to [facility] air at the jail with subsequent decompensation as per HPI as above. Prognosis extremely poor. (3) Need for comfort care SNOMED Code(s): 255672205, 222341737 Code(s): COO1903 - Status: Acute Priority: High Current Visit: Yes Annotation/Comment:: Confirmed with jail and patient's /POA and his daughter as above. They are aware that patient may not survive this hospitalization with emotional support provided. (4) Elevated lactic acid level SNOMED Code(s): 4916274 Code(s): R79.89 - OTHER SPECIFIED ABNORMAL FINDINGS OF BLOOD CHEMISTRY Status: Acute Priority: High Current Visit: Yes Onset Date: 07/10/20 Annotation/Comment:: Sepsis protocol initiated, including IV antibiotics as above. Follow-up lactic acid levels on 07/10 and 07/11 were normal. Note that the patient's blood pressures are excellent at this time with significant CHF by chest x-ray and BNP elevation, which did improve somewhat on 07/11. Observe closely for now with consideration of IV lactated Ringer's bolus with caution depending on his clinical course, although this has not been needed to this point. 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 Probable concomitant CHF with IV Lasix initiated with caution secondary to his lactic acid elevation shortly after admission. No known previous history of coronary artery disease or CHF. No further work-up, including echocardiogram, etc., secondary to his comfort care status. (6) D-dimer, elevated SNOMED Code(s): 048516739 Code(s): R79.89 - OTHER SPECIFIED ABNORMAL FINDINGS OF BLOOD CHEMISTRY Status: Acute Priority: High Current Visit: Yes Onset Date: 07/10/20 Annotation/Comment:: Further work-up per the family's request. Venous Doppler studies of the lower extremities and CTA of the chest were negative for DVT or PE on 07/10/2020. Initiate subcutaneous Lovenox therapy at VTE dose especially in light of current Covid infection on admission, however change to subcutaneous heparin secondary to evidence of anti-inflammatory effect with Covid infection based on studies. (7) Hypoalbuminemia SNOMED Code(s): 060589894 Code(s): E88.09 - OTH DISORDERS OF PLASMA-PROTEIN METABOLISM, NEC Status: Acute Priority: Medium Current Visit: Yes Onset Date: 07/10/20 Annotation/Comment:: Observe for now (8) Hypocalcemia SNOMED Code(s): 7792403 Code(s): E83.51 - HYPOCALCEMIA Status: Acute Priority: Medium Current Visit: Yes Onset Date: 07/10/20 Annotation/Comment:: Observe for now (9) COPD (chronic obstructive pulmonary disease) SNOMED Code(s): 10743482 Code(s): J44.9 - CHRONIC OBSTRUCTIVE PULMONARY DISEASE, UNSPECIFIED Status: Chronic Priority: High Current Visit: Yes Qualifiers: COPD type: COPD with acute lower respiratory infection Qualified Code(s): J44.0 - Chronic obstructive pulmonary disease with (acute) lower respiratory infection Annotation/Comment:: Patient is in a negative pressure room. Nebulizer treatments to be initiated on admission with patient not able to tolerate inhalers at this time. (10) Confusion SNOMED Code(s): 826671282 Code(s): R41.0 - DISORIENTATION, UNSPECIFIED Status: Chronic Priority: Medium Current Visit: Yes Annotation/Comment:: Note history of organic brain syndrome. Stable despite current infection? Note comfort care as above. (11) Diabetes mellitus SNOMED Code(s): 00167269 Code(s): E11.9 - TYPE 2 DIABETES MELLITUS WITHOUT COMPLICATIONS Status: Chronic Priority: High Current Visit: Yes Qualifiers: Diabetes mellitus type: type 2 Diabetes mellitus assisted insulin use: with assisted use Diabetes mellitus complication status: with neurologic complications Diabetes mellitus complication detail: with polyneuropathy Qualified Code(s): E11.42 - Type 2 diabetes mellitus with diabetic polyneuropathy; Z79.4 - USP (current) use of insulin Annotation/Comment:: Humalog sliding scale initiated on admission. Additional Lantus therapy initiated on 07/11. (12) Mixed anxiety depressive disorder SNOMED Code(s): 914116514 Code(s): F41.8 - OTHER SPECIFIED ANXIETY DISORDERS Status: Chronic Priority: Medium Current Visit: Yes Annotation/Comment:: Note history of PTSD. Observe for now. (13) Sleep apnea SNOMED Code(s): 89800047 Code(s): G47.30 - SLEEP APNEA, UNSPECIFIED Status: Chronic Priority: Medium Current Visit: Yes Qualifiers: Sleep apnea type: unspecified type Qualified Code(s): G47.30 - Sleep apnea, unspecified Annotation/Comment:: As above with patient no longer using CPAP despite [facility] the [facility]. - Problem List Review Problem List Initiated/Reviewed/Updated: Yes - My Orders Last 24 Hours: My Active Orders 07/10/20 Lunch Fluid Restriction [DIET] 07/10/20 11:54 Cardiac Monitoring [RC] Q2HR Peripheral IV Care [RC] Chest 1V Frontal [CR] Stat Sodium Chloride 0.9% [Saline Flush] 10 ml FLUSH ASDIRECTED PRN Peripheral IV Insertion Adult [OM.PC] Stat Resuscitation Status Stat 07/10/20 11:57 Isolation [COMM] Routine 07/10/20 11:58 Blood Culture x2 Reflex Set [OM.PC] Urgent 07/10/20 12:13 CULTURE BLOOD [BC] Stat 07/10/20 12:20 AEROBIC IDENT [MREF] Stat CULTURE BLOOD [BC] Stat 07/10/20 14:47 Antiembolic Devices [RC] Communication Order [RC] PER UNIT ROUTINE Communication, Vaccine [RC] PER UNIT ROUTINE Height and Weight [RC] DAILY Intake and Output Strict [RC] Oxygen Therapy [RC] 2300 Pulse Oximetry [RC] .PRN Up With Assistance [RC] ASDIRECTED Vaccines to be Administered [RC] .DISCHARGE Vital Signs [RC] Q2HR OCCULT BLOOD DIAGNOSTIC [OP] Stat Sodium Chloride 0.9% [Saline Flush] 10 ml FLUSH Q12HR PRN Temazepam [Restoril] 15 mg PO BEDTIME PRN Antiembolic Hose [OM.PC] Routine CHF Questionnaire [COMM] Routine DVT/VTE Prophylaxis Reflex [OM.PC] Routine GM Immunization Reflex [OM.PC] Click to Edit 07/10/20 14:53 CULTURE SPUTUM + SMEAR [RM] Routine 07/10/20 14:54 Blood Glucose Check, Bedside [RC] QIDACANDBED Dextrose 50% in Water 50 ml IV ASDIRECTED PRN Glucagon,Human Recombinant [GlucaGen] 1 mg IM ASDIRECTED PRN 07/10/20 15:00 H PYLORI STOOL ANTIGEN [MREF] ONETIME 07/10/20 15:16 Verify Patient Consent Obtain [RC] ASDIRECTED ABO/RH TYPE [BBK] Routine FRESH FROZEN PLASMA [BBK] Routine 07/10/20 15:17 Transfuse Fresh Frozen Plasma [COMM] Routine 07/10/20 15:23 Chest PE [Ang Chest] [CT] Stat 07/10/20 15:24 Venous Doppler Lwr Ext Bi [US] Urgent 07/10/20 15:25 Comfort Measures [OM.PC] Routine 07/10/20 15:30 Sodium Chloride 0.9% [Normal Saline] 250 ml IV ASDIRECTED 07/10/20 16:00 Furosemide [Lasix] 40 mg IVPUSH Q8H 07/10/20 16:45 Pharmacy to Dose - Vancomycin 1 dose .XX ASDIRECTED 07/10/20 17:30 Insulin Lispro [HumaLOG] See Protocol SUBCUT QIDACANDBED 07/10/20 18:00 Acetaminophen [TylenoL] 650 mg PO Q4H PRN Ascorbic Acid [Vitamin C] 1,000 mg PO BID Carbidopa/Levodopa [Sinemet 25-100 mg] 1 tab PO TID Dextromethorphan/guaiFENesin [Mucinex DM ER 600-30 MG] 1 tab PO BID Enoxaparin [Lovenox] 100 mg SUBCUT Q24H Potassium Chloride [Klor-Con M20] 20 meq PO TID 07/10/20 19:25 Urinary Catheter Assessment [RC] 07/10/20 19:30 Insert Serra Catheter [Insert Urinary Catheter] [OM.PC] Q24H 07/10/20 20:00 dexAMETHasone [Decadron] 6 mg IVPUSH Q24H 07/10/20 21:04 CULTURE URINE [RM] Routine 07/10/20 22:05 Communication Order [RC] 219907/11/20 01:00 cefTRIAXone [Rocephin] 1 gm Sodium Chloride 0.9% [Normal Saline] 100 ml IV Q12H 07/11/20 08:00 Cholecalciferol (Vitamin D3) [Vitamin D3] 75 mcg PO DAILY Escitalopram [Lexapro] 10 mg PO DAILY Finasteride [Proscar] 5 mg PO DAILY Mirtazapine [Remeron] 15 mg PO DAILY Prazosin [Minpress] 1 mg PO DAILY amLODIPine [Norvasc] 10 mg PO DAILY atorvaSTATin [Lipitor] 5 mg PO DAILY buPROPion [Wellbutrin XL] 300 mg PO DAILY lisinopriL [Prinivil] 2.5 mg PO DAILY 07/11/20 09:41 Chest 1V Frontal [CR] Stat 07/11/20 12:00 Famotidine [Pepcid] 20 mg IVPUSH Q24H 07/11/20 18:00 Remdesivir (Eua) [Remdesivir (EUA)] 100 mg Sodium Chloride 0.9% [Normal Saline] 250 ml IV Q24H 07/11/20 20:00 VANCOmycin/Water for INJ (PEG) [VANCOmycin 1.5 GM/300 ML Premix] 1.5 gm Premix Bag 1 bag IV Q24H 07/12/20 05:11 CBC WITH AUTO DIFF [HEME] DAILY COMPREHENSIVE METABOLIC PN,CMP [CHEM] DAILY 07/12/20 19:30 VANCOMYCIN TROUGH [CHEM] Routine 07/13/20 05:11 CBC WITH AUTO DIFF [HEME] DAILY 07/14/20 05:11 CBC WITH AUTO DIFF [HEME] DAILY 07/15/20 05:11 CBC WITH AUTO DIFF [HEME] DAILY 07/16/20 05:11 CBC WITH AUTO DIFF [HEME] DAILY - Assessment Assessment:: As above - Plan Plan:: As above. Extensive precautions were given to the patient and his family, who are in agreement with the treatment plan. The patient will require about 3-4 days of inpatient/acute care secondary to multiple health problems as above, however probable extended hospitalization will be required secondary to his IV remdesivir therapy. Kostas talamantes physician assumes care in the a.m.
[2020-07-11] MEDS ORDERED: Glucagon,Human Recombinant 1 MG Vial IM PRN (11:31)
[2020-07-11] MEDS ORDERED: 50% Dextrose in Water 50 ML Syringe IV PRN (11:31)
[2020-07-11] MEDS ORDERED: Albuterol/Ipratropium 3.0-0.5 MG/3 ML Neb Soln NEB PRN (11:34)
[2020-07-11] MEDS ORDERED: Albuterol 0.083% 2.5 MG/3 ML Neb Soln INH PRN (12:00)
[2020-07-11] MEDS: cefTRIAXone 1 GM in Sodium Chloride 0.9% 100 ML IV SCH (12:43)
[2020-07-11] MEDS: Albuterol/Ipratropium 3.0-0.5 MG/3 ML Neb Soln NEB SCH ×2 (12:45→17:58)
[2020-07-11] MEDS ORDERED: Saliva Substitute Oral Spray 120 ML Bottle MUCMEM PRN (13:48)
[2020-07-11] MEDS ORDERED: Sodium Chloride 0.9% 100 ML IV ONE (14:09)
[2020-07-11] MEDS ORDERED: Sodium Chloride 0.9% 250 ML IV ONE (15:00)
[2020-07-11] MEDS: Diltiazem 120 MG Cap.CD PO SCH (17:51)
[2020-07-11] MEDS: REMDESIVIR 100 MG in Sodium Chloride 0.9% 250 ML IV SCH (17:58)
[2020-07-11] MEDS: Heparin Sodium 5,000 Units/ML Vial SUBCUT SCH (17:59)
[2020-07-11] MEDS: Dexamethasone 10 MG/ML SDV IVPUSH SCH (19:37)
[2020-07-11] MEDS: Insulin Glarg,Human.Rec.Analog 100 Unit/ML SUBCUT SCH (19:38)
[2020-07-12] MEDS: Furosemide 40 MG/4 ML VIAL IVPUSH SCH ×2 (00:52→08:07)
[2020-07-12] MEDS: Albuterol/Ipratropium 3.0-0.5 MG/3 ML Neb Soln NEB SCH ×5 (00:52→23:42)
[2020-07-12] MEDS: cefTRIAXone 1 GM in Sodium Chloride 0.9% 100 ML IV SCH ×3 (00:52→23:32)
[2020-07-12] MEDS: Sodium Chloride 0.9% 10 ML Syringe FLUSH PRN ×3 (00:53→11:51)
[2020-07-12] MEDS: Heparin Sodium 5,000 Units/ML Vial SUBCUT SCH ×3 (01:00→17:34)
[2020-07-12] MEDS: Prazosin 1 MG Cap PO SCH (08:08)
[2020-07-12] MEDS: Cholecalciferol (Vitamin D3) 25 MCG Tab PO SCH (08:09)
[2020-07-12] MEDS: Mirtazapine 15 MG Tab PO SCH (08:10)
[2020-07-12] MEDS: Lisinopril 5 MG Tab PO SCH (08:10)
[2020-07-12] MEDS: atorvaSTATin 10 MG Tab PO SCH (08:13)
[2020-07-12] MEDS: Escitalopram 20 MG Tab PO SCH (08:15)
[2020-07-12] MEDS: buPROPion 150 MG Tab.ER PO SCH (08:15)
[2020-07-12] MEDS: Finasteride 5 MG Tab PO SCH (08:16)
[2020-07-12] MEDS: Ascorbic Acid 500 MG Tab PO SCH ×2 (08:17→17:33)
[2020-07-12] MEDS: Potassium Chloride 20 MEQ Tab.ER PO SCH ×2 (08:18→11:50)
[2020-07-12] MEDS: Carbidopa/Levodopa 25-100 MG Tab PO SCH ×3 (08:18→17:34)
[2020-07-12] MEDS: Dextromethorphan/guaiFENesin 600-30 MG Tab.ER PO SCH ×2 (08:18→17:34)
[2020-07-12] MEDS: Insulin Lispro 100 Units/ML 3 ML Vial SUBCUT SCH ×4 (08:22→20:56)
[2020-07-12] MEDS: Insulin Glarg,Human.Rec.Analog 100 Unit/ML SUBCUT SCH ×2 (08:25→20:53)
[2020-07-12 08:46] LABS: CHLORIDE,CL 100 mmol/L (98-107); SODIUM,NA 139 mmol/L (136-145)
[2020-07-12] MEDS: Famotidine 20 MG/2 ML SDV IVPUSH SCH (11:51)
--- NOTE | 2020-07-12 12:25 | PCM.PN ---
- General Info Date of Service: 07/12/20 Admission Dx/Problem (Free Text): Covid-19/hypoxemia/pneumonia Subjective Update: Patient rates himself as feeling overall 7/10 for wellness. No acute pain complaints. Denies feeling SOB. Asked when he could return back [facility]. Functional Status: Reports: Pain Controlled, Tolerating Diet, Urinating, Incentive Spirometry. Denies: New Symptoms - Review of Systems General: Denies: Fever, Fatigue, Malaise, Chills, Night Sweats HEENT: Denies: Headaches, Sinus Congestion, Sore Throat, Rhinitis, Visual Changes Pulmonary: Reports: Shortness of Breath (when off O2), Cough. Denies: Pleuritic Chest Pain, Hemoptysis, Wheezing Cardiovascular: Denies: Chest Pain, Palpitations, Orthopnea, Edema, Light headedness Gastrointestinal: Denies: Abdominal Pain, Diarrhea, Nausea, Vomiting Genitourinary: Reports: No Symptoms Musculoskeletal: Reports: Other (no acute changes from baseline) Skin: Reports: Bruising (forearms/hands from IVs) Neurological: Reports: Other (no acute changes from baseline). Denies: Headache, Numbness, Tingling, Trouble Speaking, Change in Speech Psychiatric: Reports: No Symptoms - Patient Data Vitals - Most Recent: Last Vital Signs Temp 36.2 C 07/12/20 11:33 Pulse 116 H 07/12/20 11:33 Resp 24 H 07/12/20 11:33 BP 109/70 07/12/20 11:33 Pulse Ox 92 L 07/12/20 11:33 Weight - Most Recent: 125.645 kg I&O - Last 24 Hours: Intake & Output 07/11/20 07/12/20 07/12/20 22:59 06:59 14:59 Intake Total 1275 400 400 Output Total 1200 1200 Balance 75 -800 400 Lab Results Last 24 Hours: Laboratory Results - last 24 hr 07/10/20 07/11/20 07/11/20 Range/Units 15:16 17:12 21:20 WBC (4.0-10.2) K/uL RBC (4.33-5.41) M/uL Hgb (13.1-16.8) g/dL Hct (39.0-49.0) % MCV (84.0-98.0) fL MCH (28.2-33.3) pg MCHC (31.7-36.0) g/dL RDW (11.2-14.1) % Plt Count (150-350) K/uL Neut % (Auto) (45.0-80.0) % Lymph % (Auto) (10.0-50.0) % Randall % (Auto) (2.0-14.0) % Eos % (Auto) (0.0-5.0) % Baso % (Auto) (0.0-2.0) % Neut # (Auto) (1.40-7.00) K/uL Lymph # (Auto) (0.50-3.50) K/uL Randall # (Auto) (0.00-1.00) K/uL Eos # (Auto) (0.00-0.50) K/uL Baso # (Auto) (0.00-0.20) K/uL D-Dimer, Quantitative (0-400) ng/mL Sodium (136-145) mmol/L Potassium (3.5-5.1) mmol/L Chloride (98-107) mmol/L Carbon Dioxide (21.0-32.0) mmol/L BUN (7-18) mg/dL Creatinine (0.51-1.17) mg/dL Est Cr Clr Drug Dosing mL/min Estimated GFR (MDRD) mL/min Glucose (74-106) mg/dL POC Glucose 298 H* 249 H (65-110) mg/dl Calcium (8.5-10.1) mg/dL Total Bilirubin (0.2-1.0) mg/dL AST (15-37) U/L ALT (12-78) U/L Alkaline Phosphatase (46-116) IU/L Creatine Kinase (26-308) U/L Creatine Kinase Index (0.0-2.5) % CK-MB (CK-2) (0.00-3.60) ng/mL Troponin I (0.000-0.056) ng/mL C-Reactive Protein (<=0.9) mg/dL NT-Pro-B Natriuret Pep (0-125) pg/mL Total Protein (6.4-8.2) g/dL Albumin (3.4-5.0) g/dL Blood Type O POSITIVE 11/20/20 11/20/20 11/20/20 Range/Units 00:56 07:18 07:18 WBC 5.1 (4.0-10.2) K/uL RBC 3.98 L (4.33-5.41) M/uL Hgb 12.3 L (13.1-16.8) g/dL Hct 37.8 L (39.0-49.0) % MCV 95.0 (84.0-98.0) fL MCH 30.9 (28.2-33.3) pg MCHC 32.5 (31.7-36.0) g/dL RDW 13.0 (11.2-14.1) % Plt Count 165 (150-350) K/uL Neut % (Auto) 91.7 H (45.0-80.0) % Lymph % (Auto) 5.5 L (10.0-50.0) % Randall % (Auto) 2.8 (2.0-14.0) % Eos % (Auto) 0.0 (0.0-5.0) % Baso % (Auto) 0.0 (0.0-2.0) % Neut # (Auto) 4.63 (1.40-7.00) K/uL Lymph # (Auto) 0.28 L (0.50-3.50) K/uL Randall # (Auto) 0.14 (0.00-1.00) K/uL Eos # (Auto) 0.00 (0.00-0.50) K/uL Baso # (Auto) 0.00 (0.00-0.20) K/uL D-Dimer, Quantitative (0-400) ng/mL Sodium 139 (136-145) mmol/L Potassium 4.2 (3.5-5.1) mmol/L Chloride 100 (98-107) mmol/L Carbon Dioxide 30.7 (21.0-32.0) mmol/L BUN 41 H (7-18) mg/dL Creatinine 1.12 (0.51-1.17) mg/dL Est Cr Clr Drug Dosing 73.23 mL/min Estimated GFR (MDRD) > 60 mL/min Glucose 253 H (74-106) mg/dL POC Glucose 217 H (65-110) mg/dl Calcium 8.3 L (8.5-10.1) mg/dL Total Bilirubin 0.4 (0.2-1.0) mg/dL AST 21 (15-37) U/L ALT 17 (12-78) U/L Alkaline Phosphatase 74 (46-116) IU/L Creatine Kinase 235 (26-308) U/L Creatine Kinase Index 0.8 (0.0-2.5) % CK-MB (CK-2) 1.90 (0.00-3.60) ng/mL Troponin I 0.000 (0.000-0.056) ng/mL C-Reactive Protein 28.4 H (<=0.9) mg/dL NT-Pro-B Natriuret Pep 546 H (0-125) pg/mL Total Protein 6.9 (6.4-8.2) g/dL Albumin 2.3 L (3.4-5.0) g/dL Blood Type 07/12/20 07/12/20 07/12/20 Range/Units 07:18 07:21 11:38 WBC (4.0-10.2) K/uL RBC (4.33-5.41) M/uL Hgb (13.1-16.8) g/dL Hct (39.0-49.0) % MCV (84.0-98.0) fL MCH (28.2-33.3) pg MCHC (31.7-36.0) g/dL RDW (11.2-14.1) % Plt Count (150-350) K/uL Neut % (Auto) (45.0-80.0) % Lymph % (Auto) (10.0-50.0) % Randall % (Auto) (2.0-14.0) % Eos % (Auto) (0.0-5.0) % Baso % (Auto) (0.0-2.0) % Neut # (Auto) (1.40-7.00) K/uL Lymph # (Auto) (0.50-3.50) K/uL Randall # (Auto) (0.00-1.00) K/uL Eos # (Auto) (0.00-0.50) K/uL Baso # (Auto) (0.00-0.20) K/uL D-Dimer, Quantitative 1800 H (0-400) ng/mL Sodium (136-145) mmol/L Potassium (3.5-5.1) mmol/L Chloride (98-107) mmol/L Carbon Dioxide (21.0-32.0) mmol/L BUN (7-18) mg/dL Creatinine (0.51-1.17) mg/dL Est Cr Clr Drug Dosing mL/min Estimated GFR (MDRD) mL/min Glucose (74-106) mg/dL POC Glucose 246 H 389 H* (65-110) mg/dl Calcium (8.5-10.1) mg/dL Total Bilirubin (0.2-1.0) mg/dL AST (15-37) U/L ALT (12-78) U/L Alkaline Phosphatase (46-116) IU/L Creatine Kinase (26-308) U/L Creatine Kinase Index (0.0-2.5) % CK-MB (CK-2) (0.00-3.60) ng/mL Troponin I (0.000-0.056) ng/mL C-Reactive Protein (<=0.9) mg/dL NT-Pro-B Natriuret Pep (0-125) pg/mL Total Protein (6.4-8.2) g/dL Albumin (3.4-5.0) g/dL Blood Type Ricki Results Last 24 Hours: Microbiology 07/10/20 21:04 Urine Culture - Preliminary Urine, Clean Catch NO GROWTH AFTER 1 DAY 07/10/20 12:20 Aerobic Blood Culture - Preliminary Blood - Venous - Lab Draw 07/10/20 12:13 Aerobic Blood Culture - Preliminary Blood - Venous Gram Positive Cocci Anaerobic Blood Culture - Preliminary Med Orders - Current: Current Medications Acetaminophen (Tylenol) 650 mg PO Q4H PRN PRN Reason: Pain Albuterol (Proventil Neb Soln) 2.5 mg INH Q2H PRN PRN Reason: SHORTNESS OF BREATH Albuterol/Ipratropium (Duoneb 3.0-0.5 Mg/3 Ml) 3 ml NEB Q6H [facility] Last Admin: 07/12/20 11:49 Dose: 3 ml Documented by: Albuterol/Ipratropium (Duoneb 3.0-0.5 Mg/3 Ml) 3 ml NEB Q4HRRT PRN PRN Reason: Dyspnea Ascorbic Acid (Vitamin C) 1,000 mg PO BID [facility] Last Admin: 07/12/20 08:17 Dose: 1,000 mg Documented by: Atorvastatin Calcium (Lipitor) 5 mg PO DAILY [facility] Last Admin: 07/12/20 08:13 Dose: 5 mg Documented by: Bupropion HCl (Wellbutrin Xl) 300 mg PO DAILY [facility] Last Admin: 07/12/20 08:15 Dose: 300 mg Documented by: Carbidopa/Levodopa (Sinemet 25-100 Mg) 1 tab PO TID [facility] Last Admin: 07/12/20 11:50 Dose: 1 tab Documented by: Cholecalciferol (Vitamin D3) 75 mcg PO DAILY [facility] Last Admin: 07/12/20 08:09 Dose: 75 mcg Documented by: Dexamethasone (Decadron) 6 mg IVPUSH Q24H [facility] Last Admin: 07/11/20 19:37 Dose: 6 mg Documented by: Dextrose/Water (Dextrose 50% In Water) 50 ml IV ASDIRECTED PRN PRN Reason: Hypoglycemia Diltiazem HCl (Cardizem Cd) 120 mg PO QPM [facility] Last Admin: 07/11/20 17:51 Dose: 120 mg Documented by: Escitalopram Oxalate (Lexapro) 10 mg PO DAILY [facility] Last Admin: 07/12/20 08:15 Dose: 10 mg Documented by: Famotidine (Pepcid) 20 mg IVPUSH Q24H [facility] Last Admin: 07/12/20 11:51 Dose: 20 mg Documented by: Finasteride (Proscar) 5 mg PO DAILY [facility] Last Admin: 07/12/20 08:16 Dose: 5 mg Documented by: Furosemide (Lasix) 40 mg IVPUSH Q8H [facility] Last Admin: 07/12/20 08:07 Dose: 40 mg Documented by: Glucagon (Glucagen) 1 mg IM ASDIRECTED PRN PRN Reason: Hypoglycemia Guaifenesin/Dextromethorphan (Mucinex Dm Er 600-30 Mg) 1 tab PO BID [facility] Last Admin: 07/12/20 08:18 Dose: 1 tab Documented by: Heparin Sodium (Porcine) (Heparin Sodium) 5,000 units SUBCUT Q8H [facility] Last Admin: 07/12/20 10:15 Dose: 5,000 units Documented by: Remdesivir 100 mg/ Sodium (Chloride) 270 mls @ 270 mls/hr IV Q24H [facility] Stop: 07/15/20 18:01 Last Admin: 07/11/20 17:58 Dose: 270 mls/hr Documented by: Vancomycin HCl 1.5 gm/ Premix 300 mls @ 200 mls/hr IV Q24H [facility] Last Admin: 07/11/20 19:38 Dose: 200 mls/hr Documented by: Ceftriaxone Sodium 1 gm/ (Sodium Chloride) 100 mls @ 200 mls/hr IV Q12H [facility] Last Admin: 07/12/20 11:49 Dose: 200 mls/hr Documented by: Insulin Glargine (Lantus) 6 unit SUBCUT Q12HR [facility] Last Admin: 07/12/20 08:25 Dose: 6 units Documented by: Insulin Human Lispro (Humalog) 0 unit SUBCUT QIDACANDBED [facility]; Protocol Last Admin: 07/12/20 11:47 Dose: 10 units Documented by: Lisinopril (Prinivil) 2.5 mg PO DAILY [facility] Last Admin: 07/12/20 08:10 Dose: 2.5 mg Documented by: Mirtazapine (Remeron) 15 mg PO DAILY [facility] Last Admin: 07/12/20 08:10 Dose: 15 mg Documented by: Potassium Chloride (Klor-Con M20) 20 meq PO TID [facility] Last Admin: 07/12/20 11:50 Dose: 20 meq Documented by: Prazosin HCl (Minpress) 1 mg PO DAILY [facility] Last Admin: 07/12/20 08:08 Dose: 1 mg Documented by: Saliva Substitute (Wild-Stir Oral [place]) 1 ml MUCMEM ASDIRECTED PRN PRN Reason: Other Last Admin: 07/11/20 14:52 Dose: 5 sprays Documented by: Sodium Chloride (Saline Flush) 10 ml FLUSH ASDIRECTED PRN PRN Reason: Keep Vein Open Last Admin: 07/12/20 11:51 Dose: 10 ml Documented by: Sodium Chloride (Saline Flush) 10 ml FLUSH Q12HR PRN PRN Reason: Keep Vein Open Last Admin: 07/10/20 21:03 Dose: 10 ml Documented by: Temazepam (Restoril) 15 mg PO BEDTIME PRN PRN Reason: Insomnia Vancomycin HCl (Pharmacy To Dose - Vancomycin) 1 dose .XX ASDIRECTED [facility] Discontinued Medications Acetaminophen (Tylenol) 650 mg PO NOW ONE Stop: 07/10/20 11:59 Last Admin: 07/10/20 12:46 Dose: 650 mg Documented by: Amlodipine Besylate (Norvasc) 10 mg PO DAILY [facility] Last Admin: 07/11/20 08:07 Dose: 10 mg Documented by: Dextrose/Water (Dextrose 50% In Water) 50 ml IV ASDIRECTED PRN PRN Reason: Hypoglycemia Diltiazem HCl (Diltiazem) 20 mg IVPUSH ONETIME ONE Stop: 07/11/20 09:43 Last Admin: 07/11/20 11:23 Dose: 10 mg Documented by: Doxycycline Monohydrate (Doxycycline Monohydrate) 100 mg PO ONETIME ONE Stop: 07/10/20 14:52 Last Admin: 07/10/20 17:19 Dose: 100 mg Documented by: Enoxaparin Sodium (Lovenox) 100 mg SUBCUT Q24H [facility] Last Admin: 07/10/20 18:50 Dose: 100 mg Documented by: Famotidine (Pepcid) 40 mg IVPUSH ONETIME ONE Stop: 07/10/20 11:55 Last Admin: 07/10/20 12:46 Dose: 40 mg Documented by: Glucagon (Glucagen) 1 mg IM ASDIRECTED PRN PRN Reason: Hypoglycemia Ceftriaxone Sodium 1 gm/ (Sodium Chloride) 100 mls @ 200 mls/hr IV Q12H [facility] Last Admin: 07/10/20 13:56 Dose: 200 mls/hr Documented by: Vancomycin HCl 1.5 gm/ Premix 300 mls @ 200 mls/hr IV Q24H [facility] Last Admin: 07/10/20 20:42 Dose: 200 mls/hr Documented by: Remdesivir 200 mg/ Sodium (Chloride) 290 mls @ 290 mls/hr IV ONETIME ONE Stop: 07/10/20 16:59 Last Admin: 07/10/20 18:27 Dose: 290 mls/hr Documented by: Sodium Chloride (Normal Saline) 250 mls @ 20 mls/hr IV ASDIRECTED [facility] Last Admin: 07/10/20 21:00 Dose: 20 mls/hr Documented by: Ceftriaxone Sodium 1 gm/ (Sodium Chloride) 100 mls @ 200 mls/hr IV Q12H [facility] Last Admin: 07/11/20 00:11 Dose: 200 mls/hr Documented by: Vancomycin HCl 1.5 gm/ Premix 300 mls @ 200 mls/hr IV Q24H [facility] Vancomycin HCl 1.5 gm/ Premix 300 mls @ 200 mls/hr IV Q24H [facility] Last Admin: 07/10/20 22:23 Dose: Not Given Documented by: Sodium Chloride (Normal Saline) 250 mls @ 20 mls/hr IV ONETIME ONE Stop: 07/12/20 03:29 Last Admin: 07/11/20 14:44 Dose: 20 mls/hr Documented by: Iopamidol (Isovue-370 (76%)) 100 ml IVPUSH ONETIME ONE Stop: 07/10/20 15:34 Last Admin: 07/10/20 18:22 Dose: 100 ml Documented by: - Exam Quality Assessment: Supplemental Oxygen, DVT Prophylaxis General: Alert, Oriented, Cooperative, No Acute Distress HEENT: Pupils Equal, Pupils Reactive, EOMI, Mucous Membr. Moist/Sunflower Neck: Supple Lungs: Rales (mild/bilat lower half lungs), Rhonchi (mild). No: Stridor, Wheezing Cardiovascular: No Murmurs, Tachycardia GI/Abdominal Exam: Normal Bowel Sounds, Soft, Non-Tender, No Distention (Male) Exam: Deferred Back Exam: Normal Inspection Extremities: Non-Tender, Normal Capillary Refill, Pedal Edema (mild) Peripheral Pulses: 2+: Radial (L), Radial (R) Skin: Warm, Dry, Ecchymosis (forearms/hands) Neurological: No New Focal Deficit Psy/Mental Status: Alert, Normal Affect, Normal Mood Sepsis Event Note - Evaluation Sepsis Screening Result: Sepsis Risk - Focused Exam Vital Signs: Vital Signs Temp Pulse Resp BP BP BP Pulse Ox 07/12/20 11:33 36.2 C 116 H 24 H 109/70 92 L 07/12/20 08:10 138/88 07/12/20 08:08 138/88 07/12/20 08:00 36.1 C 115 H 22 H 138/88 90 L - Problem List & Annotations (1) COVID-19 SNOMED Code(s): 166204894 Code(s): U07.1 - COVID-19 Status: Acute Priority: High Current Visit: Yes Onset Date: ~07/01/20 Annotation/Comment:: COVID-19 positive on 07/01/2020 as above with initial oxygen requirement and improvement [facility] the jail with subsequent decompensation as per HPI as above. Prognosis extremely poor. Currently requiring 14-15L per non-rebreather mask. Patient frequently noted to remove mask at night. (2) Need for comfort care SNOMED Code(s): 998504347, 717572681 Code(s): LXO2334 - Status: Acute Priority: High Current Visit: Yes Annotation/Comment:: Confirmed with jail and patient's /POA and his daughter as above. They are aware that patient may not survive this hospitalization with emotional support provided. (3) Pneumonia SNOMED Code(s): 287704026 Code(s): J18.9 - PNEUMONIA, UNSPECIFIED ORGANISM Status: Acute Priority: High Current Visit: Yes Onset Date: 07/10/20 Qualifiers: Pneumonia type: due to unspecified organism Laterality: bilateral Lung location: unspecified part of lung Qualified Code(s): J18.9 - Pneumonia, unspecified organism Annotation/Comment:: Positive blood cultures for gram-positive cocci on 07/11 from blood cultures drawn on admission with sensitivity pending likely secondary to initially suspected concomitant bilateral pneumonia. IV Rocephin initiated on admission. Additional oral doxycycline therapy secondary to his COVID-19 infection. Secondary to severe pulmonary findings and guarded status additional IV vancomycin was initiated admission with pharmacy consultation at that time. Continue IV Pepcid as GI prophylaxis and as treatment for his COVID-19. Various therapeutic options were discussed by telephone on 07/10/2020 with the patient's /POA and daughter, Jeannine, who requested initiation of IV remdesivir and continuation of previous oral Decadron, which will be changed to IV preparation. Patient is already on vitamin C, vitamin D, and zinc as per jail COVID- 19 protocol. The family is also requesting initiation of convalescent plasma, which was initiated on 07/11. Prognosis is still guarded today. Repeat telephone consultation with the patient's daughter, Jeannine at [phone], updating her on patient's current health status and treatment plan. NO CODE STATUS and no further transfer to [place] was confirmed with the family prior to admission. Continue aggressive O2 therapy with 100% O2 by nonrebreather mask for now. The patient apparently no longer has his CPAP. Continue proning, etc.. The patient's family is aware that he may possibly during this hospitalization. Emotional support and prayers were provided. 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 Probable concomitant CHF with IV Lasix initiated with caution secondary to his lactic acid elevation shortly after admission. No known previous history of coronary artery disease or CHF. No further work-up, including echocardiogram, etc., secondary to his comfort care status. Lasix dose to be decreased today. (5) D-dimer, elevated SNOMED Code(s): 280588748 Code(s): R79.89 - OTHER SPECIFIED ABNORMAL FINDINGS OF BLOOD CHEMISTRY Status: Acute Priority: High Current Visit: Yes Onset Date: 07/10/20 Annotation/Comment:: Further work-up per the family's request. Venous Doppler studies of the lower extremities and CTA of the chest were negative for DVT or PE on 07/10/2020. Initiated subcutaneous Lovenox therapy at VTE dose especially in light of current Covid infection on admission, however change to subcutaneous heparin secondary to evidence of anti-inflammatory effect with Covid infection based on studies. (6) Hypoalbuminemia SNOMED Code(s): 653983071 Code(s): E88.09 - OTH DISORDERS OF PLASMA-PROTEIN METABOLISM, NEC Status: Acute Priority: Medium Current Visit: Yes Onset Date: 07/10/20 Annotation/Comment:: Observe for now (7) Hypocalcemia SNOMED Code(s): 6671652 Code(s): E83.51 - HYPOCALCEMIA Status: Acute Priority: Medium Current Visit: Yes Onset Date: 07/10/20 Annotation/Comment:: Observe for now (8) COPD (chronic obstructive pulmonary disease) SNOMED Code(s): 13052774 Code(s): J44.9 - CHRONIC OBSTRUCTIVE PULMONARY DISEASE, UNSPECIFIED Status: Chronic Priority: High Current Visit: Yes Qualifiers: COPD type: COPD with acute lower respiratory infection Qualified Code(s): J44.0 - Chronic obstructive pulmonary disease with (acute) lower respiratory infection Annotation/Comment:: Patient is in a negative pressure room. Nebulizer treatments to be initiated on admission with patient not able to tolerate inhalers at this time. (9) Elevated lactic acid level SNOMED Code(s): 1181547 Code(s): R79.89 - OTHER SPECIFIED ABNORMAL FINDINGS OF BLOOD CHEMISTRY Status: Acute Priority: High Current Visit: Yes Onset Date: 07/10/20 Annotation/Comment:: Sepsis protocol initiated, including IV antibiotics as above. Follow-up lactic acid levels on 07/10 and 07/11 were normal. Note that the patient's blood pressures are excellent at this time with CHF by chest x- ray and BNP elevation, which did improve somewhat on 07/11. Observe closely for now with consideration of IV lactated Ringer's bolus with caution depending on his clinical course, although this has not been needed to this point. 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 Additional Lantus therapy initiated on 07/11. (11) Confusion SNOMED Code(s): 054755997 Code(s): R41.0 - DISORIENTATION, UNSPECIFIED Status: Chronic Priority: Medium Current Visit: Yes Annotation/Comment:: Note history of organic brain syndrome. Stable despite current infection? Note comfort care as above. (12) Mixed anxiety depressive disorder SNOMED Code(s): 777022539 Code(s): F41.8 - OTHER SPECIFIED ANXIETY DISORDERS Status: Chronic Priority: Medium Current Visit: Yes Annotation/Comment:: Note history of PTSD. Observe for now. (13) Sleep apnea SNOMED Code(s): 48163297 Code(s): G47.30 - SLEEP APNEA, UNSPECIFIED Status: Chronic Priority: Medium Current Visit: Yes Qualifiers: Sleep apnea type: unspecified type Qualified Code(s): G47.30 - Sleep apnea, unspecified Annotation/Comment:: As above with patient no longer using CPAP despite transfer records from the jail. - Problem List Review Problem List Initiated/Reviewed/Updated: Yes - My Orders Last 24 Hours: My Active Orders 07/12/20 09:27 Vital Signs [RC] Q6HR - Assessment Assessment:: As above - Plan Plan:: As above. Extensive precautions were given by to the patient and his family, who are in agreement with the treatment plan. The patient will require 3-4 days+ of inpatient/acute care depending on clinical course secondary to multiple health problems as above and continued need for high flow oxygen. Also, extended hospitalization will be required secondary to his IV remdesivir therapy.
[2020-07-12] MEDS: Diltiazem 120 MG Cap.CD PO SCH (17:34)
[2020-07-12] MEDS: Acetaminophen 325 MG Tab PO PRN (17:35)
[2020-07-12] MEDS: REMDESIVIR 100 MG in Sodium Chloride 0.9% 250 ML IV SCH (17:47)
[2020-07-12] MEDS: Dexamethasone 10 MG/ML SDV IVPUSH SCH (20:40)
[2020-07-13] MEDS: Heparin Sodium 5,000 Units/ML Vial SUBCUT SCH ×3 (05:26→17:14)
[2020-07-13] MEDS: Albuterol/Ipratropium 3.0-0.5 MG/3 ML Neb Soln NEB SCH ×4 (05:27→23:06)
[2020-07-13] MEDS: Insulin Lispro 100 Units/ML 3 ML Vial SUBCUT SCH ×4 (07:28→21:19)
[2020-07-13] MEDS: Potassium Chloride 20 MEQ Tab.ER PO SCH (07:30)
[2020-07-13] MEDS: Insulin Glarg,Human.Rec.Analog 100 Unit/ML SUBCUT SCH ×2 (07:32→19:10)
[2020-07-13] MEDS: Finasteride 5 MG Tab PO SCH (07:35)
[2020-07-13] MEDS: buPROPion 150 MG Tab.ER PO SCH (07:36)
[2020-07-13] MEDS: Lisinopril 5 MG Tab PO SCH (07:37)
[2020-07-13 07:38] LABS: CHLORIDE,CL 97 mmol/L (98-107); SODIUM,NA 133 mmol/L (136-145)
[2020-07-13] MEDS: Prazosin 1 MG Cap PO SCH (07:38)
[2020-07-13] MEDS: Cholecalciferol (Vitamin D3) 25 MCG Tab PO SCH (07:38)
[2020-07-13] MEDS: atorvaSTATin 10 MG Tab PO SCH (07:39)
[2020-07-13] MEDS: Mirtazapine 15 MG Tab PO SCH (07:40)
[2020-07-13] MEDS: Ascorbic Acid 500 MG Tab PO SCH ×2 (07:41→17:19)
[2020-07-13] MEDS: Dextromethorphan/guaiFENesin 600-30 MG Tab.ER PO SCH ×2 (07:41→17:20)
[2020-07-13] MEDS: Carbidopa/Levodopa 25-100 MG Tab PO SCH ×3 (07:41→17:20)
[2020-07-13] MEDS: Escitalopram 20 MG Tab PO SCH (07:42)
[2020-07-13] MEDS: Furosemide 40 MG/4 ML VIAL IVPUSH SCH (07:43)
[2020-07-13] MEDS: Sodium Chloride 0.9% 10 ML Syringe FLUSH PRN ×2 (07:45→23:06)
--- NOTE | 2020-07-13 10:31 | PCM.PN ---
- General Info Date of Service: 07/13/20 Admission Dx/Problem (Free Text): Covid-19/hypoxemia/pneumonia Subjective Update: Patient is still overall fatigued but feels SOB has improved since admission. No new pain complaints. Functional Status: Reports: Pain Controlled, Tolerating Diet, Ambulating, Urinating, Incentive Spirometry. Denies: New Symptoms - Review of Systems General: Reports: Weakness, Fatigue HEENT: Denies: Headaches, Sore Throat Pulmonary: Reports: Shortness of Breath, Cough, Wheezing. Denies: Pleuritic Chest Pain, Hemoptysis Cardiovascular: Reports: Dyspnea on Exertion. Denies: Chest Pain, Palpitations, Edema, Lightheadedness Gastrointestinal: Reports: No Symptoms Genitourinary: Reports: No Symptoms Musculoskeletal: Reports: Other (No acute changes from baseline) Skin: Reports: Bruising, Other (hyperpigmentation hands) Neurological: Reports: No Symptoms Psychiatric: Reports: No Symptoms - Patient Data Vitals - Most Recent: Last Vital Signs Temp 35.7 C L 07/13/20 07:15 Pulse 112 H 07/13/20 07:15 Resp 20 07/13/20 07:15 BP 120/72 07/13/20 07:38 Pulse Ox 91 L 07/13/20 07:15 Weight - Most Recent: 125.645 kg I&O - Last 24 Hours: Intake & Output 07/12/20 07/13/20 07/13/20 22:59 06:59 14:59 Intake Total 1055 285 240 Output Total 800 750 850 Balance [phone] Lab Results Last 24 Hours: Laboratory Results - last 24 hr 07/12/20 07/12/20 07/12/20 Range/Units 11:38 17:31 19:24 WBC (4.0-10.2) K/uL RBC (4.33-5.41) M/uL Hgb (13.1-16.8) g/dL Hct (39.0-49.0) % MCV (84.0-98.0) fL MCH (28.2-33.3) pg MCHC (31.7-36.0) g/dL RDW (11.2-14.1) % Plt Count (150-350) K/uL Neut % (Auto) (45.0-80.0) % Lymph % (Auto) (10.0-50.0) % [place] % (Auto) (2.0-14.0) % Eos % (Auto) (0.0-5.0) % Baso % (Auto) (0.0-2.0) % Neut # (Auto) (1.40-7.00) K/uL Lymph # (Auto) (0.50-3.50) K/uL [place] # (Auto) (0.00-1.00) K/uL Eos # (Auto) (0.00-0.50) K/uL Baso # (Auto) (0.00-0.20) K/uL Sodium (136-145) mmol/L Potassium (3.5-5.1) mmol/L Chloride (98-107) mmol/L Carbon Dioxide (21.0-32.0) mmol/L BUN (7-18) mg/dL Creatinine (0.51-1.17) mg/dL Est Cr Clr Drug Dosing mL/min Estimated GFR (MDRD) mL/min Glucose (74-106) mg/dL POC Glucose 389 H* 383 H* (65-110) mg/dl Calcium (8.5-10.1) mg/dL Vancomycin Trough 8.1 L (10-20) ug/mL 07/12/20 07/13/20 07/13/20 Range/Units 20:51 07:08 07:12 WBC 6.0 (4.0-10.2) K/uL RBC 4.20 L (4.33-5.41) M/uL Hgb 12.9 L (13.1-16.8) g/dL Hct 40.0 (39.0-49.0) % MCV 95.2 (84.0-98.0) fL MCH 30.7 (28.2-33.3) pg MCHC 32.3 (31.7-36.0) g/dL RDW 12.8 (11.2-14.1) % Plt Count 196 (150-350) K/uL Neut % (Auto) 93.2 H (45.0-80.0) % Lymph % (Auto) 3.9 L (10.0-50.0) % [place] % (Auto) 2.9 (2.0-14.0) % Eos % (Auto) 0.0 (0.0-5.0) % Baso % (Auto) 0.0 (0.0-2.0) % Neut # (Auto) 5.55 (1.40-7.00) K/uL Lymph # (Auto) 0.23 L (0.50-3.50) K/uL [place] # (Auto) 0.17 (0.00-1.00) K/uL Eos # (Auto) 0.00 (0.00-0.50) K/uL Baso # (Auto) 0.00 (0.00-0.20) K/uL Sodium (136-145) mmol/L Potassium (3.5-5.1) mmol/L Chloride (98-107) mmol/L Carbon Dioxide (21.0-32.0) mmol/L BUN (7-18) mg/dL Creatinine (0.51-1.17) mg/dL Est Cr Clr Drug Dosing mL/min Estimated GFR (MDRD) mL/min Glucose (74-106) mg/dL POC Glucose 287 H* 348 H* (65-110) mg/dl Calcium (8.5-10.1) mg/dL Vancomycin Trough (10-20) ug/mL 07/13/20 Range/Units 07:12 WBC (4.0-10.2) K/uL RBC (4.33-5.41) M/uL Hgb (13.1-16.8) g/dL Hct (39.0-49.0) % MCV (84.0-98.0) fL MCH (28.2-33.3) pg MCHC (31.7-36.0) g/dL RDW (11.2-14.1) % Plt Count (150-350) K/uL Neut % (Auto) (45.0-80.0) % Lymph % (Auto) (10.0-50.0) % [place] % (Auto) (2.0-14.0) % Eos % (Auto) (0.0-5.0) % Baso % (Auto) (0.0-2.0) % Neut # (Auto) (1.40-7.00) K/uL Lymph # (Auto) (0.50-3.50) K/uL [place] # (Auto) (0.00-1.00) K/uL Eos # (Auto) (0.00-0.50) K/uL Baso # (Auto) (0.00-0.20) K/uL Sodium 133 L (136-145) mmol/L Potassium 4.5 (3.5-5.1) mmol/L Chloride 97 L (98-107) mmol/L Carbon Dioxide 28.2 (21.0-32.0) mmol/L BUN 44 H (7-18) mg/dL Creatinine 0.99 (0.51-1.17) mg/dL Est Cr Clr Drug Dosing 82.85 mL/min Estimated GFR (MDRD) > 60 mL/min Glucose 334 H (74-106) mg/dL POC Glucose (65-110) mg/dl Calcium 8.3 L (8.5-10.1) mg/dL Vancomycin Trough (10-20) ug/mL Ricki Results Last 24 Hours: Microbiology 07/10/20 21:04 Urine Culture - Final Urine, Clean Catch NO GROWTH AFTER 2 DAYS 07/10/20 12:20 Bacterial Identification - Preliminary Blood - Venous - Lab Draw Gp Cocci In Pairs And Chains Med Orders - Current: Current Medications Acetaminophen (Tylenol) 650 mg PO Q4H PRN PRN Reason: Pain Last Admin: 07/12/20 17:35 Dose: 650 mg Documented by: Albuterol (Proventil Neb Soln) 2.5 mg INH Q2H PRN PRN Reason: SHORTNESS OF BREATH Albuterol/Ipratropium (Duoneb 3.0-0.5 Mg/3 Ml) 3 ml NEB Q6H [facility] Last Admin: 07/13/20 05:27 Dose: 3 ml Documented by: Albuterol/Ipratropium (Duoneb 3.0-0.5 Mg/3 Ml) 3 ml NEB Q4HRRT PRN PRN Reason: Dyspnea Ascorbic Acid (Vitamin C) 1,000 mg PO BID [facility] Last Admin: 07/13/20 07:41 Dose: 1,000 mg Documented by: Atorvastatin Calcium (Lipitor) 5 mg PO DAILY [facility] Last Admin: 07/13/20 07:39 Dose: 5 mg Documented by: Bupropion HCl (Wellbutrin Xl) 300 mg PO DAILY [facility] Last Admin: 11/21/20 07:36 Dose: 300 mg Documented by: Carbidopa/Levodopa (Sinemet 25-100 Mg) 1 tab PO TID [facility] Last Admin: 07/13/20 07:41 Dose: 1 tab Documented by: Cholecalciferol (Vitamin D3) 75 mcg PO DAILY [facility] Last Admin: 07/13/20 07:38 Dose: 75 mcg Documented by: Dexamethasone (Decadron) 6 mg IVPUSH Q24H [facility] Last Admin: 07/12/20 20:40 Dose: 6 mg Documented by: Dextrose/Water (Dextrose 50% In Water) 50 ml IV ASDIRECTED PRN PRN Reason: Hypoglycemia Diltiazem HCl (Cardizem Cd) 120 mg PO QPM [facility] Last Admin: 07/12/20 17:34 Dose: 120 mg Documented by: Escitalopram Oxalate (Lexapro) 10 mg PO DAILY [facility] Last Admin: 07/13/20 07:42 Dose: 10 mg Documented by: Famotidine (Pepcid) 20 mg IVPUSH Q24H [facility] Last Admin: 07/12/20 11:51 Dose: 20 mg Documented by: Finasteride (Proscar) 5 mg PO DAILY [facility] Last Admin: 07/13/20 07:35 Dose: 5 mg Documented by: Furosemide (Lasix) 40 mg IVPUSH DAILY [facility] Last Admin: 07/13/20 07:43 Dose: 40 mg Documented by: Glucagon (Glucagen) 1 mg IM ASDIRECTED PRN PRN Reason: Hypoglycemia Guaifenesin/Dextromethorphan (Mucinex Dm Er 600-30 Mg) 1 tab PO BID [facility] Last Admin: 07/13/20 07:41 Dose: 1 tab Documented by: Heparin Sodium (Porcine) (Heparin Sodium) 5,000 units SUBCUT Q8H [facility] Last Admin: 07/13/20 05:26 Dose: 5,000 units Documented by: Remdesivir 100 mg/ Sodium (Chloride) 270 mls @ 270 mls/hr IV Q24H [facility] Stop: 07/15/20 18:01 Last Admin: 07/12/20 17:47 Dose: 270 mls/hr Documented by: Ceftriaxone Sodium 1 gm/ (Sodium Chloride) 100 mls @ 200 mls/hr IV Q12H [facility] Last Admin: 07/12/20 23:32 Dose: 200 mls/hr Documented by: Vancomycin HCl 1.5 gm/ Premix 300 mls @ 200 mls/hr IV Q12H [facility] Last Admin: 07/13/20 07:55 Dose: 200 mls/hr Documented by: Insulin Glargine (Lantus) 6 unit SUBCUT Q12HR [facility] Last Admin: 07/13/20 07:32 Dose: 6 units Documented by: Insulin Human Lispro (Humalog) 0 unit SUBCUT QIDACANDBED [facility]; Protocol Last Admin: 07/13/20 07:28 Dose: 8 units Documented by: Lisinopril (Prinivil) 2.5 mg PO DAILY [facility] Last Admin: 07/13/20 07:37 Dose: 2.5 mg Documented by: Mirtazapine (Remeron) 15 mg PO DAILY [facility] Last Admin: 07/13/20 07:40 Dose: 15 mg Documented by: Potassium Chloride (Klor-Con M20) 20 meq PO DAILY [facility] Last Admin: 07/13/20 07:30 Dose: 20 meq Documented by: Prazosin HCl (Minpress) 1 mg PO DAILY [facility] Last Admin: 07/13/20 07:38 Dose: 1 mg Documented by: Saliva Substitute (Wild-Stir Oral Christine) 1 ml MUCMEM ASDIRECTED PRN PRN Reason: Other Last Admin: 07/11/20 14:52 Dose: 5 sprays Documented by: Sodium Chloride (Saline Flush) 10 ml FLUSH ASDIRECTED PRN PRN Reason: Keep Vein Open Last Admin: 07/13/20 07:45 Dose: 10 ml Documented by: Sodium Chloride (Saline Flush) 10 ml FLUSH Q12HR PRN PRN Reason: Keep Vein Open Last Admin: 07/10/20 21:03 Dose: 10 ml Documented by: Temazepam (Restoril) 15 mg PO BEDTIME PRN PRN Reason: Insomnia Vancomycin HCl (Pharmacy To Dose - Vancomycin) 1 dose .XX ASDIRECTED [facility] Discontinued Medications Acetaminophen (Tylenol) 650 mg PO NOW ONE Stop: 07/10/20 11:59 Last Admin: 07/10/20 12:46 Dose: 650 mg Documented by: Amlodipine Besylate (Norvasc) 10 mg PO DAILY [facility] Last Admin: 07/11/20 08:07 Dose: 10 mg Documented by: Dextrose/Water (Dextrose 50% In Water) 50 ml IV ASDIRECTED PRN PRN Reason: Hypoglycemia Diltiazem HCl (Diltiazem) 20 mg IVPUSH ONETIME ONE Stop: 07/11/20 09:43 Last Admin: 07/11/20 11:23 Dose: 10 mg Documented by: Doxycycline Monohydrate (Doxycycline Monohydrate) 100 mg PO ONETIME ONE Stop: 07/10/20 14:52 Last Admin: 07/10/20 17:19 Dose: 100 mg Documented by: Enoxaparin Sodium (Lovenox) 100 mg SUBCUT Q24H [facility] Last Admin: 07/10/20 18:50 Dose: 100 mg Documented by: Famotidine (Pepcid) 40 mg IVPUSH ONETIME ONE Stop: 07/10/20 11:55 Last Admin: 07/10/20 12:46 Dose: 40 mg Documented by: Furosemide (Lasix) 40 mg IVPUSH Q8H [facility] Last Admin: 07/12/20 08:07 Dose: 40 mg Documented by: Glucagon (Glucagen) 1 mg IM ASDIRECTED PRN PRN Reason: Hypoglycemia Ceftriaxone Sodium 1 gm/ (Sodium Chloride) 100 mls @ 200 mls/hr IV Q12H [facility] Last Admin: 07/10/20 13:56 Dose: 200 mls/hr Documented by: Vancomycin HCl 1.5 gm/ Premix 300 mls @ 200 mls/hr IV Q24H [facility] Last Admin: 07/10/20 20:42 Dose: 200 mls/hr Documented by: Remdesivir 200 mg/ Sodium (Chloride) 290 mls @ 290 mls/hr IV ONETIME ONE Stop: 07/10/20 16:59 Last Admin: 07/10/20 18:27 Dose: 290 mls/hr Documented by: Sodium Chloride (Normal Saline) 250 mls @ 20 mls/hr IV ASDIRECTED [facility] Last Admin: 07/10/20 21:00 Dose: 20 mls/hr Documented by: Ceftriaxone Sodium 1 gm/ (Sodium Chloride) 100 mls @ 200 mls/hr IV Q12H [facility] Last Admin: 07/11/20 00:11 Dose: 200 mls/hr Documented by: Vancomycin HCl 1.5 gm/ Premix 300 mls @ 200 mls/hr IV Q24H [facility] Vancomycin HCl 1.5 gm/ Premix 300 mls @ 200 mls/hr IV Q24H [facility] Last Admin: 11/18/20 22:23 Dose: Not Given Documented by: Vancomycin HCl 1.5 gm/ Premix 300 mls @ 200 mls/hr IV Q24H [facility] Last Admin: 07/11/20 19:38 Dose: 200 mls/hr Documented by: Sodium Chloride (Normal Saline) 250 mls @ 20 mls/hr IV ONETIME ONE Stop: 07/12/20 03:29 Last Admin: 07/11/20 14:44 Dose: 20 mls/hr Documented by: Iopamidol (Isovue-370 (76%)) 100 ml IVPUSH ONETIME ONE Stop: 07/10/20 15:34 Last Admin: 07/10/20 18:22 Dose: 100 ml Documented by: Potassium Chloride (Klor-Con M20) 20 meq PO TID [facility] Last Admin: 07/12/20 11:50 Dose: 20 meq Documented by: - Exam Quality Assessment: Supplemental Oxygen, DVT Prophylaxis General: Alert, Oriented, Cooperative, No Acute Distress HEENT: Pupils Equal, Pupils Reactive, EOMI, Mucous Membr. Moist/[place] Neck: Supple Lungs: Rales, Rhonchi, Wheezing Cardiovascular: Tachycardia GI/Abdominal Exam: Normal Bowel Sounds, Soft, Non-Tender, No Distention (Male) Exam: Deferred Back Exam: No: CVA Tenderness (L), CVA Tenderness (R), Muscle Spasm Extremities: Non-Tender, Normal Capillary Refill Skin: Warm Neurological: No New Focal Deficit Psy/Mental Status: Alert, Normal Affect, Normal Mood Sepsis Event Note - Evaluation Sepsis Screening Result: No Definite Risk - Focused Exam Vital Signs: Vital Signs Temp Pulse Resp BP BP BP Pulse Ox 07/13/20 07:38 120/72 07/13/20 07:37 120/72 07/13/20 07:15 35.7 C L 112 H 20 120/72 91 L 07/13/20 06:00 36.2 C 118 H 20 124/78 93 L 07/13/20 02:21 36.5 C 115 H 20 93 L 07/12/20 23:39 93 L 07/12/20 23:30 115 H 20 126/82 96 07/12/20 23:25 36.2 C 113 H 20 85 L - Problem List & Annotations (1) COVID-19 SNOMED Code(s): 864589007 Code(s): U07.1 - COVID-19 Status: Acute Priority: High Current Visit: Yes Onset Date: ~07/01/20 Annotation/Comment:: COVID-19 positive on 07/01/2020 as above with initial oxygen requirement and improvement to room air at the [facility] with subsequent decompensation as per HPI as above. Prognosis extremely poor. Improved oxygen requirement, now at 10L non-rebreather mask. Was at 15L initially. Respiratory rate also improved significantly.Patient frequently noted to remove mask at night. Treated with Dexamethasone, remdesivir, and plasma. (2) Need for comfort care SNOMED Code(s): 476473266, 223907222 Code(s): QDK8145 - Status: Acute Priority: High Current Visit: Yes Annotation/Comment:: Confirmed with [facility] and patient's /POA and his daughter as above. They are aware that patient may not survive this hospitalization with emotional support provided. (3) Pneumonia SNOMED Code(s): 172811077 Code(s): J18.9 - PNEUMONIA, UNSPECIFIED ORGANISM Status: Acute Priority: High Current Visit: Yes Onset Date: 07/10/20 Qualifiers: Pneumonia type: due to unspecified organism Laterality: bilateral Lung location: unspecified part of lung Qualified Code(s): J18.9 - Pneumonia, unspecified organism Annotation/Comment:: Positive blood cultures for gram-positive cocci on 07/11 from blood cultures drawn on admission with sensitivity pending likely secondary to initially suspected concomitant bilateral pneumonia. IV Rocephin initiated on admission. Additional oral doxycycline therapy secondary to his COVID-19 infection. Secondary to severe pulmonary findings and guarded status additional IV vancomycin was initiated admission with pharmacy consultation at that time. Continue IV Pepcid as GI prophylaxis and as treatment for his COVID-19. Various therapeutic options were discussed by telephone on 07/10/2020 with the patient's /POA and daughter, Jeannine, who requested initiation of IV remdesivir and continuation of previous oral Decadron, which will be changed to IV preparation. Patient is already on vitamin C, vitamin D, and zinc as per [facility] COVID- 19 protocol. The family is also requesting initiation of convalescent plasma, which was initiated on 07/11. Prognosis is still guarded today. Repeat telephone consultation with the patient's daughter, Jeannine at [phone], updating her on patient's current health status and treatment plan. NO CODE [facility] and no further transfer to [place] was confirmed with the family prior to admission. Continue aggressive O2 therapy with 100% O2 by nonrebreather mask for now. The patient apparently no longer has his CPAP. Continue proning, etc.. The patient's family is aware that he may possibly during this hospitalization. Emotional support and prayers were provided. 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 Probable concomitant CHF with IV Lasix initiated with caution secondary to his lactic acid elevation shortly after admission. No known previous history of coronary artery disease or CHF. No further work-up, including echocardiogram, etc., secondary to his comfort care status. Lasix dose to be decreased today. (5) D-dimer, elevated SNOMED Code(s): 634523128 Code(s): R79.89 - OTHER SPECIFIED ABNORMAL FINDINGS OF BLOOD CHEMISTRY Status: Acute Priority: High Current Visit: Yes Onset Date: 07/10/20 Annotation/Comment:: Further work-up per the family's request. Venous Doppler studies of the lower extremities and CTA of the chest were negative for DVT or PE on 07/10/2020. Initiated subcutaneous Lovenox therapy at VTE dose especially in light of current Covid infection on admission, however change to subcutaneous heparin secondary to evidence of anti-inflammatory effect with Covid infection based on studies. (6) Hypoalbuminemia SNOMED Code(s): 491078868 Code(s): E88.09 - OTH DISORDERS OF PLASMA-PROTEIN METABOLISM, NEC Status: Acute Priority: Medium Current Visit: Yes Onset Date: 07/10/20 Annotation/Comment:: Observe for now (7) Hypocalcemia SNOMED Code(s): 7063197 Code(s): E83.51 - HYPOCALCEMIA Status: Acute Priority: Medium Current Visit: Yes Onset Date: 07/10/20 Annotation/Comment:: Observe for now (8) COPD (chronic obstructive pulmonary disease) SNOMED Code(s): 16587016 Code(s): J44.9 - CHRONIC OBSTRUCTIVE PULMONARY DISEASE, UNSPECIFIED Status: Chronic Priority: High Current Visit: Yes Qualifiers: COPD type: COPD with acute lower respiratory infection Qualified Code(s): J44.0 - Chronic obstructive pulmonary disease with (acute) lower respiratory infection Annotation/Comment:: Patient is in a negative pressure room. Nebulizer treatments to be initiated on admission with patient not able to tolerate inhalers at this time. (9) Elevated lactic acid level SNOMED Code(s): 3501052 Code(s): R79.89 - OTHER SPECIFIED ABNORMAL FINDINGS OF BLOOD CHEMISTRY Status: Acute Priority: High Current Visit: Yes Onset Date: 07/10/20 Annotation/Comment:: Sepsis protocol initiated, including IV antibiotics as above. Follow-up lactic acid levels on 07/10 and 07/11 were normal. Note that the patient's blood pressures are excellent at this time with CHF by chest x- ray and BNP elevation, which did improve somewhat on 07/11. Observe closely for now with consideration of IV lactated Ringer's bolus with caution depending on his clinical course, although this has not been needed to this point. 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 Additional Lantus therapy initiated on 07/11. (11) Confusion SNOMED Code(s): 033113503 Code(s): R41.0 - DISORIENTATION, UNSPECIFIED Status: Chronic Priority: Medium Current Visit: Yes Annotation/Comment:: Note history of organic brain syndrome. Stable despite current infection? Note comfort care as above. (12) Mixed anxiety depressive disorder SNOMED Code(s): 073422007 Code(s): F41.8 - OTHER SPECIFIED ANXIETY DISORDERS Status: Chronic Priority: Medium Current Visit: Yes Annotation/Comment:: Note history of PTSD. Observe for now. (13) Sleep apnea SNOMED Code(s): 47319006 Code(s): G47.30 - SLEEP APNEA, UNSPECIFIED Status: Chronic Priority: Medium Current Visit: Yes Qualifiers: Sleep apnea type: unspecified type Qualified Code(s): G47.30 - Sleep apnea, unspecified Annotation/Comment:: As above with patient no longer using CPAP despite transfer records from the [facility]. - Problem List Review Problem List Initiated/Reviewed/Updated: Yes - My Orders Last 24 Hours: My Active Orders 07/12/20 09:27 Vital Signs [RC] Q6HR 07/12/20 14:00 OT Evaluation and Treatment [CONS] Routine PT Evaluation and Treatment [CONS] Routine 07/13/20 08:00 Furosemide [Lasix] 40 mg IVPUSH DAILY Potassium Chloride [Klor-Con M20] 20 meq PO DAILY 07/14/20 05:11 Chest 1V Frontal [CR] AM BASIC METABOLIC PANEL,BMP [CHEM] AM 07/15/20 05:11 BASIC METABOLIC PANEL,BMP [CHEM] AM 07/16/20 05:11 BASIC METABOLIC PANEL,BMP [CHEM] AM - Assessment Assessment:: As above. Slow improvement but still requires significant oxygen support. - Plan Plan:: As above. Extensive precautions were given by to the patient and his family, who are in agreement with the treatment plan. The patient will require 3-4 days+ of inpatient/acute care depending on clinical course secondary to multiple health problems as above and continued need for high flow oxygen. Also, extended hospitalization will be required secondary to his IV remdesivir/Vancomycin therapy. Will have case management contact patient's [facility] on Wednesday to see what their comfort level is with patient returning to [facility] if he is still requiring higher flow oxygen support.
[2020-07-13] MEDS: Famotidine 20 MG/2 ML SDV IVPUSH SCH (11:01)
[2020-07-13] MEDS: cefTRIAXone 1 GM in Sodium Chloride 0.9% 100 ML IV SCH ×2 (11:17→23:06)
[2020-07-13] MEDS: REMDESIVIR 100 MG in Sodium Chloride 0.9% 250 ML IV SCH (17:13)
[2020-07-13] MEDS: Diltiazem 120 MG Cap.CD PO SCH (17:18)
[2020-07-13] MEDS: Dexamethasone 10 MG/ML SDV IVPUSH SCH (19:09)
[2020-07-14] MEDS: Heparin Sodium 5,000 Units/ML Vial SUBCUT SCH ×3 (02:01→17:45)
[2020-07-14] MEDS: Albuterol/Ipratropium 3.0-0.5 MG/3 ML Neb Soln NEB SCH ×3 (05:10→17:45)
[2020-07-14] MEDS: Sodium Chloride 0.9% 10 ML Syringe FLUSH PRN ×4 (07:41→20:36)
[2020-07-14] MEDS: atorvaSTATin 10 MG Tab PO SCH (07:45)
[2020-07-14] MEDS: Furosemide 40 MG/4 ML VIAL IVPUSH SCH (07:45)
[2020-07-14] MEDS: Cholecalciferol (Vitamin D3) 25 MCG Tab PO SCH (07:45)
[2020-07-14] MEDS: Carbidopa/Levodopa 25-100 MG Tab PO SCH ×3 (07:46→17:42)
[2020-07-14] MEDS: Ascorbic Acid 500 MG Tab PO SCH ×2 (07:47→17:43)
[2020-07-14] MEDS: Finasteride 5 MG Tab PO SCH (07:47)
[2020-07-14] MEDS: buPROPion 150 MG Tab.ER PO SCH (07:47)
[2020-07-14] MEDS: Dextromethorphan/guaiFENesin 600-30 MG Tab.ER PO SCH ×2 (07:48→17:43)
[2020-07-14] MEDS: Potassium Chloride 20 MEQ Tab.ER PO SCH (07:48)
[2020-07-14] MEDS: Prazosin 1 MG Cap PO SCH (07:50)
[2020-07-14] MEDS: Mirtazapine 15 MG Tab PO SCH (07:50)
[2020-07-14] MEDS: Lisinopril 5 MG Tab PO SCH (07:51)
[2020-07-14] MEDS: Escitalopram 20 MG Tab PO SCH (07:52)
[2020-07-14] MEDS: Insulin Glarg,Human.Rec.Analog 100 Unit/ML SUBCUT SCH ×2 (07:55→20:43)
[2020-07-14] MEDS: Insulin Lispro 100 Units/ML 3 ML Vial SUBCUT SCH ×4 (07:56→20:44)
[2020-07-14 08:01] LABS: CHLORIDE,CL 97 mmol/L (98-107); SODIUM,NA 133 mmol/L (136-145)
--- NOTE | 2020-07-14 13:38 | PCM.PN ---
- General Info Date of Service: 07/14/20 Admission Dx/Problem (Free Text): Covid-19/hypoxemia/pneumonia Subjective Update: Reports mild increased sensation SOB today. No other changes. No pain complaint. Pain Score: 0 - Review of Systems General: Reports: Weakness, Fatigue. Denies: Fever, Night Sweats HEENT: Reports: No Symptoms Pulmonary: Reports: Shortness of Breath, Cough, Sputum. Denies: Pleuritic Chest Pain, Hemoptysis, Wheezing Cardiovascular: Reports: Dyspnea on Exertion. Denies: Chest Pain, Orthopnea, Lightheadedness Gastrointestinal: Reports: No Symptoms Genitourinary: Reports: No Symptoms Musculoskeletal: Reports: Other (no acute changes from baseline) Skin: Reports: No Symptoms Neurological: Reports: No Symptoms Psychiatric: Reports: No Symptoms - Patient Data Vitals - Most Recent: Last Vital Signs Temp 36.2 C 07/14/20 05:07 Pulse 118 H 07/14/20 07:32 Resp 20 07/14/20 07:32 BP 134/87 07/14/20 07:51 Pulse Ox 90 L 07/14/20 07:32 Weight - Most Recent: 125.645 kg I&O - Last 24 Hours: Intake & Output 07/13/20 07/14/20 07/14/20 22:59 06:59 14:59 Intake Total 1220 400 800 Output Total 700 450 500 Balance 520 -50 300 Lab Results Last 24 Hours: Laboratory Results - last 24 hr 07/13/20 07/13/20 07/14/20 Range/Units 17:08 21:16 07:30 WBC (4.0-10.2) K/uL RBC (4.33-5.41) M/uL Hgb (13.1-16.8) g/dL Hct (39.0-49.0) % MCV (84.0-98.0) fL MCH (28.2-33.3) pg MCHC (31.7-36.0) g/dL RDW (11.2-14.1) % Plt Count (150-350) K/uL Neut % (Auto) (45.0-80.0) % Lymph % (Auto) (10.0-50.0) % Cecil % (Auto) (2.0-14.0) % Eos % (Auto) (0.0-5.0) % Baso % (Auto) (0.0-2.0) % Neut # (Auto) (1.40-7.00) K/uL Lymph # (Auto) (0.50-3.50) K/uL Cecil # (Auto) (0.00-1.00) K/uL Eos # (Auto) (0.00-0.50) K/uL Baso # (Auto) (0.00-0.20) K/uL Sodium (136-145) mmol/L Potassium (3.5-5.1) mmol/L Chloride (98-107) mmol/L Carbon Dioxide (21.0-32.0) mmol/L BUN (7-18) mg/dL Creatinine (0.51-1.17) mg/dL Est Cr Clr Drug Dosing mL/min Estimated GFR (MDRD) mL/min Glucose (74-106) mg/dL POC Glucose 425 H* 319 H* 296 H* (65-110) mg/dl Calcium (8.5-10.1) mg/dL Vancomycin Trough (10-20) ug/mL 07/14/20 07/14/20 07/14/20 Range/Units 07:31 07:31 07:31 WBC 5.3 (4.0-10.2) K/uL RBC 4.07 L (4.33-5.41) M/uL Hgb 12.6 L (13.1-16.8) g/dL Hct 38.8 L (39.0-49.0) % MCV 95.3 (84.0-98.0) fL MCH 31.0 (28.2-33.3) pg MCHC 32.5 (31.7-36.0) g/dL RDW 12.8 (11.2-14.1) % Plt Count 175 (150-350) K/uL Neut % (Auto) 92.4 H (45.0-80.0) % Lymph % (Auto) 4.2 L (10.0-50.0) % Cecil % (Auto) 3.4 (2.0-14.0) % Eos % (Auto) 0.0 (0.0-5.0) % Baso % (Auto) 0.0 (0.0-2.0) % Neut # (Auto) 4.87 (1.40-7.00) K/uL Lymph # (Auto) 0.22 L (0.50-3.50) K/uL Cecil # (Auto) 0.18 (0.00-1.00) K/uL Eos # (Auto) 0.00 (0.00-0.50) K/uL Baso # (Auto) 0.00 (0.00-0.20) K/uL Sodium 133 L (136-145) mmol/L Potassium 4.7 (3.5-5.1) mmol/L Chloride 97 L (98-107) mmol/L Carbon Dioxide 30.0 (21.0-32.0) mmol/L BUN 41 H (7-18) mg/dL Creatinine 0.91 (0.51-1.17) mg/dL Est Cr Clr Drug Dosing 90.14 mL/min Estimated GFR (MDRD) > 60 mL/min Glucose 304 H (74-106) mg/dL POC Glucose (65-110) mg/dl Calcium 8.4 L (8.5-10.1) mg/dL Vancomycin Trough 18.7 (10-20) ug/mL 07/14/20 Range/Units 10:57 WBC (4.0-10.2) K/uL RBC (4.33-5.41) M/uL Hgb (13.1-16.8) g/dL Hct (39.0-49.0) % MCV (84.0-98.0) fL MCH (28.2-33.3) pg MCHC (31.7-36.0) g/dL RDW (11.2-14.1) % Plt Count (150-350) K/uL Neut % (Auto) (45.0-80.0) % Lymph % (Auto) (10.0-50.0) % Cecil % (Auto) (2.0-14.0) % Eos % (Auto) (0.0-5.0) % Baso % (Auto) (0.0-2.0) % Neut # (Auto) (1.40-7.00) K/uL Lymph # (Auto) (0.50-3.50) K/uL Cecil # (Auto) (0.00-1.00) K/uL Eos # (Auto) (0.00-0.50) K/uL Baso # (Auto) (0.00-0.20) K/uL Sodium (136-145) mmol/L Potassium (3.5-5.1) mmol/L Chloride (98-107) mmol/L Carbon Dioxide (21.0-32.0) mmol/L BUN (7-18) mg/dL Creatinine (0.51-1.17) mg/dL Est Cr Clr Drug Dosing mL/min Estimated GFR (MDRD) mL/min Glucose (74-106) mg/dL POC Glucose 369 H* (65-110) mg/dl Calcium (8.5-10.1) mg/dL Vancomycin Trough (10-20) ug/mL Ricki Results Last 24 Hours: Microbiology 07/10/20 12:20 Bacterial Identification - Preliminary Blood - Venous - Lab Draw Streptococcus Pneumoniae 07/10/20 21:04 Urine Culture - Final Urine, Clean Catch NO GROWTH AFTER 2 DAYS Med Orders - Current: Current Medications Acetaminophen (Tylenol) 650 mg PO Q4H PRN PRN Reason: Pain Last Admin: 07/12/20 17:35 Dose: 650 mg Documented by: Albuterol (Proventil Neb Soln) 2.5 mg INH Q2H PRN PRN Reason: SHORTNESS OF BREATH Albuterol/Ipratropium (Duoneb 3.0-0.5 Mg/3 Ml) 3 ml NEB Q6H [facility] Last Admin: 07/14/20 05:10 Dose: 3 ml Documented by: Albuterol/Ipratropium (Duoneb 3.0-0.5 Mg/3 Ml) 3 ml NEB Q4HRRT PRN PRN Reason: Dyspnea Ascorbic Acid (Vitamin C) 1,000 mg PO BID [facility] Last Admin: 07/14/20 07:47 Dose: 1,000 mg Documented by: Atorvastatin Calcium (Lipitor) 5 mg PO DAILY [facility] Last Admin: 07/14/20 07:45 Dose: 5 mg Documented by: Bupropion HCl (Wellbutrin Xl) 300 mg PO DAILY [facility] Last Admin: 07/14/20 07:47 Dose: 300 mg Documented by: Carbidopa/Levodopa (Sinemet 25-100 Mg) 1 tab PO TID [facility] Last Admin: 07/14/20 07:46 Dose: 1 tab Documented by: Cholecalciferol (Vitamin D3) 75 mcg PO DAILY [facility] Last Admin: 07/14/20 07:45 Dose: 75 mcg Documented by: Dexamethasone (Decadron) 6 mg IVPUSH Q24H [facility] Last Admin: 07/13/20 19:09 Dose: 6 mg Documented by: Dextrose/Water (Dextrose 50% In Water) 50 ml IV ASDIRECTED PRN PRN Reason: Hypoglycemia Diltiazem HCl (Cardizem Cd) 120 mg PO QPM [facility] Last Admin: 07/13/20 17:18 Dose: 120 mg Documented by: Escitalopram Oxalate (Lexapro) 10 mg PO DAILY [facility] Last Admin: 07/14/20 07:52 Dose: 10 mg Documented by: Famotidine (Pepcid) 20 mg IVPUSH Q24H [facility] Last Admin: 07/13/20 11:01 Dose: 20 mg Documented by: Finasteride (Proscar) 5 mg PO DAILY [facility] Last Admin: 07/14/20 07:47 Dose: 5 mg Documented by: Furosemide (Lasix) 40 mg IVPUSH DAILY [facility] Last Admin: 07/14/20 07:45 Dose: 40 mg Documented by: Glucagon (Glucagen) 1 mg IM ASDIRECTED PRN PRN Reason: Hypoglycemia Guaifenesin/Dextromethorphan (Mucinex Dm Er 600-30 Mg) 1 tab PO BID [facility] Last Admin: 07/14/20 07:48 Dose: 1 tab Documented by: Heparin Sodium (Porcine) (Heparin Sodium) 5,000 units SUBCUT Q8H [facility] Last Admin: 07/14/20 09:31 Dose: 5,000 units Documented by: Remdesivir 100 mg/ Sodium (Chloride) 270 mls @ 270 mls/hr IV Q24H [facility] Stop: 07/15/20 18:01 Last Admin: 07/13/20 17:13 Dose: 270 mls/hr Documented by: Ceftriaxone Sodium 1 gm/ (Sodium Chloride) 100 mls @ 200 mls/hr IV Q12H [facility] Last Admin: 07/13/20 23:06 Dose: 200 mls/hr Documented by: Piperacillin Sod/Tazobactam (Sod 4.5 gm/ Sodium Chloride) 100 mls @ 200 mls/hr IV Q6H [facility] Insulin Glargine (Lantus) 6 unit SUBCUT Q12HR [facility] Last Admin: 07/14/20 07:55 Dose: 6 units Documented by: Insulin Human Lispro (Humalog) 0 unit SUBCUT QIDACANDBED [facility]; Protocol Last Admin: 07/14/20 07:56 Dose: 9 units Documented by: Lisinopril (Prinivil) 2.5 mg PO DAILY [facility] Last Admin: 07/14/20 07:51 Dose: 2.5 mg Documented by: Mirtazapine (Remeron) 15 mg PO DAILY [facility] Last Admin: 07/14/20 07:50 Dose: 15 mg Documented by: Potassium Chloride (Klor-Con M20) 20 meq PO DAILY [facility] Last Admin: 07/14/20 07:48 Dose: 20 meq Documented by: Prazosin HCl (Minpress) 1 mg PO DAILY [facility] Last Admin: 07/14/20 07:50 Dose: 1 mg Documented by: Saliva Substitute (Wild-Stir Oral [place]) 1 ml MUCMEM ASDIRECTED PRN PRN Reason: Other Last Admin: 07/11/20 14:52 Dose: 5 sprays Documented by: Sodium Chloride (Saline Flush) 10 ml FLUSH ASDIRECTED PRN PRN Reason: Keep Vein Open Last Admin: 07/14/20 07:41 Dose: 10 ml Documented by: Sodium Chloride (Saline Flush) 10 ml FLUSH Q12HR PRN PRN Reason: Keep Vein Open Last Admin: 07/10/20 21:03 Dose: 10 ml Documented by: Temazepam (Restoril) 15 mg PO BEDTIME PRN PRN Reason: Insomnia Last Admin: 07/13/20 23:21 Dose: 15 mg Documented by: Discontinued Medications Acetaminophen (Tylenol) 650 mg PO NOW ONE Stop: 07/10/20 11:59 Last Admin: 07/10/20 12:46 Dose: 650 mg Documented by: Amlodipine Besylate (Norvasc) 10 mg PO DAILY [facility] Last Admin: 07/11/20 08:07 Dose: 10 mg Documented by: Dextrose/Water (Dextrose 50% In Water) 50 ml IV ASDIRECTED PRN PRN Reason: Hypoglycemia Diltiazem HCl (Diltiazem) 20 mg IVPUSH ONETIME ONE Stop: 07/11/20 09:43 Last Admin: 07/11/20 11:23 Dose: 10 mg Documented by: Doxycycline Monohydrate (Doxycycline Monohydrate) 100 mg PO ONETIME ONE Stop: 07/10/20 14:52 Last Admin: 07/10/20 17:19 Dose: 100 mg Documented by: Enoxaparin Sodium (Lovenox) 100 mg SUBCUT Q24H [facility] Last Admin: 07/10/20 18:50 Dose: 100 mg Documented by: Famotidine (Pepcid) 40 mg IVPUSH ONETIME ONE Stop: 07/10/20 11:55 Last Admin: 07/10/20 12:46 Dose: 40 mg Documented by: Furosemide (Lasix) 40 mg IVPUSH Q8H [facility] Last Admin: 07/12/20 08:07 Dose: 40 mg Documented by: Glucagon (Glucagen) 1 mg IM ASDIRECTED PRN PRN Reason: Hypoglycemia Ceftriaxone Sodium 1 gm/ (Sodium Chloride) 100 mls @ 200 mls/hr IV Q12H [facility] Last Admin: 07/10/20 13:56 Dose: 200 mls/hr Documented by: Vancomycin HCl 1.5 gm/ Premix 300 mls @ 200 mls/hr IV Q24H [facility] Last Admin: 07/10/20 20:42 Dose: 200 mls/hr Documented by: Remdesivir 200 mg/ Sodium (Chloride) 290 mls @ 290 mls/hr IV ONETIME ONE Stop: 07/10/20 16:59 Last Admin: 07/10/20 18:27 Dose: 290 mls/hr Documented by: Sodium Chloride (Normal Saline) 250 mls @ 20 mls/hr IV ASDIRECTED [facility] Last Admin: 07/10/20 21:00 Dose: 20 mls/hr Documented by: Ceftriaxone Sodium 1 gm/ (Sodium Chloride) 100 mls @ 200 mls/hr IV Q12H [facility] Last Admin: 07/11/20 00:11 Dose: 200 mls/hr Documented by: Vancomycin HCl 1.5 gm/ Premix 300 mls @ 200 mls/hr IV Q24H [facility] Vancomycin HCl 1.5 gm/ Premix 300 mls @ 200 mls/hr IV Q24H [facility] Last Admin: 07/10/20 22:23 Dose: Not Given Documented by: Vancomycin HCl 1.5 gm/ Premix 300 mls @ 200 mls/hr IV Q24H [facility] Last Admin: 07/11/20 19:38 Dose: 200 mls/hr Documented by: Sodium Chloride (Normal Saline) 250 mls @ 20 mls/hr IV ONETIME ONE Stop: 07/12/20 03:29 Last Admin: 07/11/20 14:44 Dose: 20 mls/hr Documented by: Vancomycin HCl 1.5 gm/ Premix 300 mls @ 200 mls/hr IV Q12H [facility] Last Admin: 07/14/20 07:44 Dose: 200 mls/hr Documented by: Iopamidol (Isovue-370 (76%)) 100 ml IVPUSH ONETIME ONE Stop: 07/10/20 15:34 Last Admin: 07/10/20 18:22 Dose: 100 ml Documented by: Potassium Chloride (Klor-Con M20) 20 meq PO TID [facility] Last Admin: 07/12/20 11:50 Dose: 20 meq Documented by: Vancomycin HCl (Pharmacy To Dose - Vancomycin) 1 dose .XX ASDIRECTED [facility] - Exam Quality Assessment: Supplemental Oxygen, DVT Prophylaxis General: Alert, Oriented, Cooperative, No Acute Distress HEENT: Pupils Equal, Pupils Reactive, EOMI, Mucous Membr. Moist/[place] Neck: Supple Lungs: Rales (mild/bases), Rhonchi (mild/bilateral), Wheezing (mild/bilateral), Other (mild abdominal breathing, no retractions). No: Stridor Cardiovascular: Regular Rate, Regular Rhythm GI/Abdominal Exam: Soft, Non-Tender, No Distention (Male) Exam: Deferred Back Exam: No: Muscle Spasm Extremities: Non-Tender, Normal Capillary Refill Skin: Warm, Dry Neurological: No New Focal Deficit Psy/Mental Status: Alert, Normal Affect, Normal Mood Sepsis Event Note - Evaluation Sepsis Screening Result: Sepsis Risk - Focused Exam Vital Signs: Vital Signs Temp Pulse Resp BP BP Pulse Ox 07/14/20 07:51 134/87 07/14/20 07:50 134/87 07/14/20 07:32 118 H 20 134/87 90 L 07/14/20 05:07 36.2 C 117 H 20 151/90 H 90 L - Problem List & Annotations (1) COVID-19 SNOMED Code(s): 218818405 Code(s): U07.1 - COVID-19 Status: Acute Priority: High Current Visit: Yes Onset Date: ~07/01/20 Annotation/Comment:: COVID-19 positive on 07/01/2020 as above with initial oxygen requirement and improvement to room air at the long term with subsequent decompensation as per HPI in ER. Prognosis extremely poor. Treated with Dexamethasone, remdesivir, and plasma. Chest xray today shows improvement of bilateral patchy infiltrates. Patient's oxygen requirement however has increased back up to around 14LPM on NRB. Respiratory rate however remains improved. (2) Need for comfort care SNOMED Code(s): 294802711, 709990805 Code(s): VQM6471 - Status: Acute Priority: High Current Visit: Yes Annotation/Comment:: Confirmed with long term and patient's /POA and his daughter as above. They are aware that patient may not survive this hospitalization with emotional support provided. (3) Pneumonia SNOMED Code(s): 420599656 Code(s): J18.9 - PNEUMONIA, UNSPECIFIED ORGANISM Status: Acute Priority: High Current Visit: Yes Onset Date: 07/10/20 Qualifiers: Pneumonia type: due to unspecified organism Laterality: bilateral Lung location: unspecified part of lung Qualified Code(s): J18.9 - Pneumonia, unspecified organism Annotation/Comment:: Covid pneumonia. Also grew out Strep Pneumoniae blood cultu res. Sensitive to Vanco/Rocephin but given that species often more susceptible to PCNs, patient switched from Vanco to Zosyn. NO CODE STATUS and no further transfer to [place] was confirmed with the family prior to admission. Continue aggressive O2 therapy with 100% O2 by nonrebreather mask for now. The patient apparently no longer has his CPAP. Continue proning, etc.. The patient's family is aware that he may possibly during this hospitalization. 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 Probable concomitant CHF with IV Lasix initiated with caution secondary to his lactic acid elevation shortly after admission. No known previous history of coronary artery disease or CHF. No further work-up, including echocardiogram, etc., secondary to his comfort care status. Lasix dose decreased to single daily dose after initial diuresis. (5) D-dimer, elevated SNOMED Code(s): 605219271 Code(s): R79.89 - OTHER SPECIFIED ABNORMAL FINDINGS OF BLOOD CHEMISTRY Status: Acute Priority: High Current Visit: Yes Onset Date: 07/10/20 Annotation/Comment:: Further work-up per the family's request. Venous Doppler studies of the lower extremities and CTA of the chest were negative for DVT or PE on 07/10/2020. Initiated subcutaneous Lovenox therapy at VTE dose especially in light of current Covid infection on admission, however change to subcutaneous heparin secondary to evidence of anti-inflammatory effect with Covid infection based on studies. (6) Hypoalbuminemia SNOMED Code(s): 979509395 Code(s): E88.09 - OTH DISORDERS OF PLASMA-PROTEIN METABOLISM, NEC Status: Acute Priority: Medium Current Visit: Yes Onset Date: 07/10/20 Annotation/Comment:: Observe for now (7) Hypocalcemia SNOMED Code(s): 5768571 Code(s): E83.51 - HYPOCALCEMIA Status: Acute Priority: Medium Current Visit: Yes Onset Date: 07/10/20 Annotation/Comment:: Observe for now (8) COPD (chronic obstructive pulmonary disease) SNOMED Code(s): 02936969 Code(s): J44.9 - CHRONIC OBSTRUCTIVE PULMONARY DISEASE, UNSPECIFIED Status: Chronic Priority: High Current Visit: Yes Qualifiers: COPD type: COPD with acute lower respiratory infection Qualified Code(s): J44.0 - Chronic obstructive pulmonary disease with (acute) lower respiratory infection Annotation/Comment:: Patient is in a negative pressure room. Nebulizer treatments to be initiated on admission with patient not able to tolerate inhalers at this time. (9) Elevated lactic acid level SNOMED Code(s): 3164952 Code(s): R79.89 - OTHER SPECIFIED ABNORMAL FINDINGS OF BLOOD CHEMISTRY Status: Acute Priority: High Current Visit: Yes Onset Date: 07/10/20 Annotation/Comment:: Sepsis protocol initiated, including IV antibiotics as above. Follow-up lactic acid levels on 07/10 and 07/11 were normal. 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 Additional Lantus therapy initiated on 07/11. (11) Confusion SNOMED Code(s): 831221661 Code(s): R41.0 - DISORIENTATION, UNSPECIFIED Status: Chronic Priority: Medium Current Visit: Yes Annotation/Comment:: Note history of organic brain syndrome. Stable despite current infection. Patient has appeared appropriately oriented during stay. Note comfort care as above. (12) Mixed anxiety depressive disorder SNOMED Code(s): 101452073 Code(s): F41.8 - OTHER SPECIFIED ANXIETY DISORDERS Status: Chronic Priority: Medium Current Visit: Yes Annotation/Comment:: Note history of PTSD. Observe for now. (13) Sleep apnea SNOMED Code(s): 27942720 Code(s): G47.30 - SLEEP APNEA, UNSPECIFIED Status: Chronic Priority: Medium Current Visit: Yes Qualifiers: Sleep apnea type: unspecified type Qualified Code(s): G47.30 - Sleep apnea, unspecified Annotation/Comment:: As above with patient no longer using CPAP despite transfer records from the long term. - Problem List Review Problem List Initiated/Reviewed/Updated: Yes - My Orders Last 24 Hours: My Active Orders 07/14/20 05:11 Chest 1V Frontal [CR] AM 07/14/20 08:30 Urinary Catheter Removal [RC] PER UNIT ROUTINE 07/14/20 11:45 Piperacillin/Tazobactam [Zosyn] 4.5 gm Sodium Chloride 0.9% [Normal Saline] 100 ml IV Q6H 07/15/20 05:11 BASIC METABOLIC PANEL,BMP [CHEM] AM 07/16/20 05:11 BASIC METABOLIC PANEL,BMP [CHEM] AM - Assessment Assessment:: As above. Slow improvement but still requires significant oxygen support. - Plan Plan:: As above. Extensive precautions were given by Dr.Loperena to the patient and his family, who are in agreement with the treatment plan. The patient will require unknown additional days of inpatient/acute care depending on clinical course secondary to multiple health problems as above and continued need for high flow oxygen. Also, extended hospitalization will be required secondary to his IV remdesivir/antibiotics. Will have case management contact patient's long term on Wednesday to see what their comfort level is with patient returning to long term if he is still requiring higher flow oxygen support. Prognosis is poor given patient's age, past medical history, and current Covid infection. Again, he has a no-code status and does not want transfer to higher LOC.
[2020-07-14] MEDS: cefTRIAXone 1 GM in Sodium Chloride 0.9% 100 ML IV SCH (13:42)
[2020-07-14] MEDS: Piperacillin/Tazobactam 4.5 GM in Sodium Chloride 0.9% 100 ML IV SCH ×2 (13:42→16:46)
[2020-07-14] MEDS: Famotidine 20 MG/2 ML SDV IVPUSH SCH (13:43)
[2020-07-14] MEDS: Diltiazem 120 MG Cap.CD PO SCH (17:42)
[2020-07-14] MEDS: REMDESIVIR 100 MG in Sodium Chloride 0.9% 250 ML IV SCH (17:45)
[2020-07-14] MEDS: Dexamethasone 10 MG/ML SDV IVPUSH SCH (20:36)
[2020-07-15] MEDS: Piperacillin/Tazobactam 4.5 GM in Sodium Chloride 0.9% 100 ML IV SCH ×4 (00:35→17:15)
[2020-07-15] MEDS: Albuterol/Ipratropium 3.0-0.5 MG/3 ML Neb Soln NEB SCH ×4 (00:38→17:12)
[2020-07-15] MEDS: cefTRIAXone 1 GM in Sodium Chloride 0.9% 100 ML IV SCH ×2 (01:26→12:47)
[2020-07-15] MEDS: Heparin Sodium 5,000 Units/ML Vial SUBCUT SCH ×3 (01:27→17:13)
[2020-07-15] MEDS: Furosemide 40 MG/4 ML VIAL IVPUSH SCH (07:32)
[2020-07-15] MEDS: buPROPion 150 MG Tab.ER PO SCH (07:33)
[2020-07-15] MEDS: Mirtazapine 15 MG Tab PO SCH (07:33)
[2020-07-15] MEDS: Ascorbic Acid 500 MG Tab PO SCH (07:33)
[2020-07-15] MEDS: Dextromethorphan/guaiFENesin 600-30 MG Tab.ER PO SCH (07:34)
[2020-07-15] MEDS: atorvaSTATin 10 MG Tab PO SCH (07:34)
[2020-07-15] MEDS: Cholecalciferol (Vitamin D3) 25 MCG Tab PO SCH (07:35)
[2020-07-15] MEDS: Escitalopram 20 MG Tab PO SCH (07:39)
[2020-07-15] MEDS: Lisinopril 5 MG Tab PO SCH (07:40)
[2020-07-15] MEDS: Prazosin 1 MG Cap PO SCH (07:40)
[2020-07-15] MEDS: Potassium Chloride 20 MEQ Tab.ER PO SCH (07:40)
[2020-07-15] MEDS: Carbidopa/Levodopa 25-100 MG Tab PO SCH ×3 (07:42→17:11)
[2020-07-15] MEDS: Finasteride 5 MG Tab PO SCH (07:42)
[2020-07-15] MEDS: Insulin Lispro 100 Units/ML 3 ML Vial SUBCUT SCH ×4 (07:44→20:21)
[2020-07-15] MEDS: Insulin Glarg,Human.Rec.Analog 100 Unit/ML SUBCUT SCH ×2 (07:45→20:23)
[2020-07-15] MEDS: Sodium Chloride 0.9% 10 ML Syringe FLUSH PRN ×2 (07:47→12:49)
[2020-07-15 07:51] LABS: CHLORIDE,CL 98 mmol/L (98-107); SODIUM,NA 133 mmol/L (136-145)
[2020-07-15] MEDS: Famotidine 20 MG/2 ML SDV IVPUSH SCH (11:24)
--- NOTE | 2020-07-15 16:16 | PCM.PN ---
- General Info Date of Service: 07/15/20 Admission Dx/Problem (Free Text): Covid-19/hypoxemia/pneumonia Subjective Update: Continued SOB/improved from yesterday. Continued fatigue/weakness. No other changes. No pain complaint. Functional Status: Reports: Pain Controlled, Tolerating Diet, Urinating (incontinent), Incentive Spirometry, Other (Transfers with assist). Denies: New Symptoms - Review of Systems General: Reports: Weakness, Fatigue. Denies: Fever, Malaise, Chills, Night Sweats HEENT: Denies: Ear Pain, Headaches, Sinus Congestion, Sore Throat, Visual Changes Pulmonary: Reports: Shortness of Breath, Cough, Sputum. Denies: Pleuritic Chest Pain, Hemoptysis, Wheezing Cardiovascular: Reports: Dyspnea on Exertion. Denies: Chest Pain, Palpitations, Orthopnea, Lightheadedness Gastrointestinal: Reports: No Symptoms Genitourinary: Reports: Incontinence. Denies: Dysuria, Frequency, Burning, Urgency, Hematuria, Flank Pain Musculoskeletal: Reports: Other (No acute changes from baseline) Skin: Reports: Bruising (from IVs/SQ injections) Neurological: Reports: Pre-Existing Deficit (Parkinsons), Difficulty Walking (chronic), Weakness. Denies: Confusion, Headache, Change in Speech Psychiatric: Reports: No Symptoms - Patient Data Vitals - Most Recent: Last Vital Signs Temp 35.9 C L 07/15/20 12:00 Pulse 111 H 07/15/20 12:00 Resp 20 07/15/20 12:00 BP 113/63 07/15/20 12:00 Pulse Ox 93 L 07/15/20 12:00 Weight - Most Recent: 125.645 kg I&O - Last 24 Hours: Intake & Output 07/15/20 07/15/20 07/15/20 06:59 14:59 22:59 Intake Total 600 120 Balance 600 120 Lab Results Last 24 Hours: Laboratory Results - last 24 hr 07/14/20 07/14/20 07/15/20 Range/Units 16:38 20:42 07:25 WBC 5.6 (4.0-10.2) K/uL RBC 4.14 L (4.33-5.41) M/uL Hgb 12.7 L (13.1-16.8) g/dL Hct 39.5 (39.0-49.0) % MCV 95.4 (84.0-98.0) fL MCH 30.7 (28.2-33.3) pg MCHC 32.2 (31.7-36.0) g/dL RDW 12.7 (11.2-14.1) % Plt Count 184 (150-350) K/uL Neut % (Auto) 92.3 H (45.0-80.0) % Lymph % (Auto) 4.1 L (10.0-50.0) % [place] % (Auto) 3.6 (2.0-14.0) % Eos % (Auto) 0.0 (0.0-5.0) % Baso % (Auto) 0.0 (0.0-2.0) % Neut # (Auto) 5.13 (1.40-7.00) K/uL Lymph # (Auto) 0.23 L (0.50-3.50) K/uL [place] # (Auto) 0.20 (0.00-1.00) K/uL Eos # (Auto) 0.00 (0.00-0.50) K/uL Baso # (Auto) 0.00 (0.00-0.20) K/uL Sodium (136-145) mmol/L Potassium (3.5-5.1) mmol/L Chloride (98-107) mmol/L Carbon Dioxide (21.0-32.0) mmol/L BUN (7-18) mg/dL Creatinine (0.51-1.17) mg/dL Est Cr Clr Drug Dosing mL/min Estimated GFR (MDRD) mL/min Glucose (74-106) mg/dL POC Glucose 374 H* 274 H* (65-110) mg/dl Calcium (8.5-10.1) mg/dL 07/15/20 07/15/20 07/15/20 Range/Units 07:25 07:25 11:17 WBC (4.0-10.2) K/uL RBC (4.33-5.41) M/uL Hgb (13.1-16.8) g/dL Hct (39.0-49.0) % MCV (84.0-98.0) fL MCH (28.2-33.3) pg MCHC (31.7-36.0) g/dL RDW (11.2-14.1) % Plt Count (150-350) K/uL Neut % (Auto) (45.0-80.0) % Lymph % (Auto) (10.0-50.0) % [place] % (Auto) (2.0-14.0) % Eos % (Auto) (0.0-5.0) % Baso % (Auto) (0.0-2.0) % Neut # (Auto) (1.40-7.00) K/uL Lymph # (Auto) (0.50-3.50) K/uL [place] # (Auto) (0.00-1.00) K/uL Eos # (Auto) (0.00-0.50) K/uL Baso # (Auto) (0.00-0.20) K/uL Sodium 133 L (136-145) mmol/L Potassium 4.9 (3.5-5.1) mmol/L Chloride 98 (98-107) mmol/L Carbon Dioxide 28.2 (21.0-32.0) mmol/L BUN 40 H (7-18) mg/dL Creatinine 1.01 (0.51-1.17) mg/dL Est Cr Clr Drug Dosing 81.21 mL/min Estimated GFR (MDRD) > 60 mL/min Glucose 329 H (74-106) mg/dL POC Glucose 321 H* 357 H* (65-110) mg/dl Calcium 8.3 L (8.5-10.1) mg/dL Med Orders - Current: Current Medications Acetaminophen (Tylenol) 650 mg PO Q4H PRN PRN Reason: Pain Last Admin: 07/12/20 17:35 Dose: 650 mg Documented by: Albuterol (Proventil Neb Soln) 2.5 mg INH Q2H PRN PRN Reason: SHORTNESS OF BREATH Albuterol/Ipratropium (Duoneb 3.0-0.5 Mg/3 Ml) 3 ml NEB Q6H [facility]NER Last Admin: 07/15/20 11:25 Dose: 3 ml Documented by: Albuterol/Ipratropium (Duoneb 3.0-0.5 Mg/3 Ml) 3 ml NEB Q4HRRT PRN PRN Reason: Dyspnea Ascorbic Acid (Vitamin C) 1,000 mg PO BID [facility] Last Admin: 07/15/20 07:33 Dose: 1,000 mg Documented by: Atorvastatin Calcium (Lipitor) 5 mg PO DAILY [facility] Last Admin: 07/15/20 07:34 Dose: 5 mg Documented by: Bupropion HCl (Wellbutrin Xl) 300 mg PO DAILY [facility] Last Admin: 07/15/20 07:33 Dose: 300 mg Documented by: Carbidopa/Levodopa (Sinemet 25-100 Mg) 1 tab PO TID [facility] Last Admin: 07/15/20 11:25 Dose: 1 tab Documented by: Cholecalciferol (Vitamin D3) 75 mcg PO DAILY [facility] Last Admin: 07/15/20 07:35 Dose: 75 mcg Documented by: Dexamethasone (Decadron) 6 mg IVPUSH Q24H [facility] Last Admin: 07/14/20 20:36 Dose: 6 mg Documented by: Dextrose/Water (Dextrose 50% In Water) 50 ml IV ASDIRECTED PRN PRN Reason: Hypoglycemia Diltiazem HCl (Cardizem Cd) 120 mg PO QPM [facility] Last Admin: 07/14/20 17:42 Dose: 120 mg Documented by: Escitalopram Oxalate (Lexapro) 10 mg PO DAILY [facility] Last Admin: 07/15/20 07:39 Dose: 10 mg Documented by: Famotidine (Pepcid) 20 mg IVPUSH Q24H [facility] Last Admin: 07/15/20 11:24 Dose: 20 mg Documented by: Finasteride (Proscar) 5 mg PO DAILY [facility] Last Admin: 07/15/20 07:42 Dose: 5 mg Documented by: Furosemide (Lasix) 40 mg IVPUSH DAILY [facility] Last Admin: 07/15/20 07:32 Dose: 40 mg Documented by: Glucagon (Glucagen) 1 mg IM ASDIRECTED PRN PRN Reason: Hypoglycemia Guaifenesin/Dextromethorphan (Mucinex Dm Er 600-30 Mg) 1 tab PO BID [facility] Last Admin: 07/15/20 07:34 Dose: 1 tab Documented by: Heparin Sodium (Porcine) (Heparin Sodium) 5,000 units SUBCUT Q8H [facility] Last Admin: 07/15/20 11:24 Dose: 5,000 units Documented by: Ceftriaxone Sodium 1 gm/ (Sodium Chloride) 100 mls @ 200 mls/hr IV Q12H [facility] Last Admin: 07/15/20 12:47 Dose: 200 mls/hr Documented by: Piperacillin Sod/Tazobactam (Sod 4.5 gm/ Sodium Chloride) 100 mls @ 200 mls/hr IV Q6H [facility] Last Admin: 07/15/20 11:24 Dose: 200 mls/hr Documented by: Insulin Glargine (Lantus) 6 unit SUBCUT Q12HR [facility] Last Admin: 07/15/20 07:45 Dose: 12 units Documented by: Insulin Human Lispro (Humalog) 0 unit SUBCUT QIDACANDBED [facility]; Protocol Last Admin: 07/15/20 11:30 Dose: 15 units Documented by: Lisinopril (Prinivil) 2.5 mg PO DAILY [facility] Last Admin: 07/15/20 07:40 Dose: 2.5 mg Documented by: Mirtazapine (Remeron) 15 mg PO DAILY [facility] Last Admin: 07/15/20 07:33 Dose: 15 mg Documented by: Potassium Chloride (Klor-Con M20) 20 meq PO DAILY [facility] Last Admin: 07/15/20 07:40 Dose: 20 meq Documented by: Prazosin HCl (Minpress) 1 mg PO DAILY [facility] Last Admin: 07/15/20 07:40 Dose: 1 mg Documented by: Saliva Substitute (Wild-Stir Oral [place]) 1 ml MUCMEM ASDIRECTED PRN PRN Reason: Other Last Admin: 07/11/20 14:52 Dose: 5 sprays Documented by: Senna/Docusate Sodium (Senna Plus) 1 tab PO BID [facility] Senna/Docusate Sodium (Senna Plus) 1 tab PO DAILY PRN PRN Reason: Constipation Last Admin: 07/15/20 11:25 Dose: 1 tab Documented by: Sodium Chloride (Saline Flush) 10 ml FLUSH ASDIRECTED PRN PRN Reason: Keep Vein Open Last Admin: 07/15/20 12:49 Dose: 10 ml Documented by: Sodium Chloride (Saline Flush) 10 ml FLUSH Q12HR PRN PRN Reason: Keep Vein Open Last Admin: 07/14/20 20:35 Dose: 10 ml Documented by: Temazepam (Restoril) 15 mg PO BEDTIME PRN PRN Reason: Insomnia Last Admin: 07/13/20 23:21 Dose: 15 mg Documented by: Discontinued Medications Acetaminophen (Tylenol) 650 mg PO NOW ONE Stop: 07/10/20 11:59 Last Admin: 07/10/20 12:46 Dose: 650 mg Documented by: Amlodipine Besylate (Norvasc) 10 mg PO DAILY [facility] Last Admin: 07/11/20 08:07 Dose: 10 mg Documented by: Dextrose/Water (Dextrose 50% In Water) 50 ml IV ASDIRECTED PRN PRN Reason: Hypoglycemia Diltiazem HCl (Diltiazem) 20 mg IVPUSH ONETIME ONE Stop: 07/11/20 09:43 Last Admin: 07/11/20 11:23 Dose: 10 mg Documented by: Doxycycline Monohydrate (Doxycycline Monohydrate) 100 mg PO ONETIME ONE Stop: 07/10/20 14:52 Last Admin: 07/10/20 17:19 Dose: 100 mg Documented by: Enoxaparin Sodium (Lovenox) 100 mg SUBCUT Q24H [facility] Last Admin: 07/10/20 18:50 Dose: 100 mg Documented by: Famotidine (Pepcid) 40 mg IVPUSH ONETIME ONE Stop: 07/10/20 11:55 Last Admin: 07/10/20 12:46 Dose: 40 mg Documented by: Furosemide (Lasix) 40 mg IVPUSH Q8H [facility] Last Admin: 07/12/20 08:07 Dose: 40 mg Documented by: Glucagon (Glucagen) 1 mg IM ASDIRECTED PRN PRN Reason: Hypoglycemia Ceftriaxone Sodium 1 gm/ (Sodium Chloride) 100 mls @ 200 mls/hr IV Q12H [facility] Last Admin: 07/10/20 13:56 Dose: 200 mls/hr Documented by: Vancomycin HCl 1.5 gm/ Premix 300 mls @ 200 mls/hr IV Q24H [facility] Last Admin: 07/10/20 20:42 Dose: 200 mls/hr Documented by: Remdesivir 200 mg/ Sodium (Chloride) 290 mls @ 290 mls/hr IV ONETIME ONE Stop: 07/10/20 16:59 Last Admin: 07/10/20 18:27 Dose: 290 mls/hr Documented by: Sodium Chloride (Normal Saline) 250 mls @ 20 mls/hr IV ASDIRECTED [facility] Last Admin: 07/10/20 21:00 Dose: 20 mls/hr Documented by: Ceftriaxone Sodium 1 gm/ (Sodium Chloride) 100 mls @ 200 mls/hr IV Q12H [facility] Last Admin: 07/11/20 00:11 Dose: 200 mls/hr Documented by: Remdesivir 100 mg/ Sodium (Chloride) 270 mls @ 270 mls/hr IV Q24H [facility] Stop: 07/15/20 18:01 Last Admin: 07/14/20 17:45 Dose: 270 mls/hr Documented by: Vancomycin HCl 1.5 gm/ Premix 300 mls @ 200 mls/hr IV Q24H [facility] Vancomycin HCl 1.5 gm/ Premix 300 mls @ 200 mls/hr IV Q24H [facility] Last Admin: 07/10/20 22:23 Dose: Not Given Documented by: Vancomycin HCl 1.5 gm/ Premix 300 mls @ 200 mls/hr IV Q24H [facility] Last Admin: 07/11/20 19:38 Dose: 200 mls/hr Documented by: Sodium Chloride (Normal Saline) 250 mls @ 20 mls/hr IV ONETIME ONE Stop: 07/12/20 03:29 Last Admin: 07/11/20 14:44 Dose: 20 mls/hr Documented by: Vancomycin HCl 1.5 gm/ Premix 300 mls @ 200 mls/hr IV Q12H [facility] Last Admin: 07/14/20 07:44 Dose: 200 mls/hr Documented by: Iopamidol (Isovue-370 (76%)) 100 ml IVPUSH ONETIME ONE Stop: 07/10/20 15:34 Last Admin: 07/10/20 18:22 Dose: 100 ml Documented by: Potassium Chloride (Klor-Con M20) 20 meq PO TID [facility] Last Admin: 07/12/20 11:50 Dose: 20 meq Documented by: Vancomycin HCl (Pharmacy To Dose - Vancomycin) 1 dose .XX ASDIRECTED [place] - Exam Quality Assessment: Supplemental Oxygen, DVT Prophylaxis General: Alert, Oriented, Cooperative, No Acute Distress HEENT: Pupils Equal, Pupils Reactive, EOMI, Mucous Membr. Moist/[place] Neck: Supple Lungs: Rales (mild/bases), Rhonchi (mild/bilat), Wheezing (mild/bilat), Other (no respiratory distress present). No: Rub, Stridor GI/Abdominal Exam: Normal Bowel Sounds, Soft, Non-Tender (Male) Exam: Deferred Back Exam: No: Muscle Spasm Extremities: Non-Tender, Normal Capillary Refill Skin: Warm, Dry Neurological: No New Focal Deficit Psy/Mental Status: Alert, Normal Affect, Normal Mood Sepsis Event Note - Evaluation Sepsis Screening Result: Sepsis Risk - Focused Exam Vital Signs: Vital Signs Temp Pulse Resp BP BP BP Pulse Ox 07/15/20 12:00 35.9 C L 111 H 20 113/63 93 L 07/15/20 07:48 35.8 C L 112 H 20 119/82 93 L 07/15/20 07:40 119/82 07/15/20 05:38 36.2 C 116 H 22 H 127/85 89 L - Problem List & Annotations (1) COVID-19 SNOMED Code(s): 982933720 Code(s): U07.1 - COVID-19 Status: Acute Priority: High Current Visit: Yes Onset Date: ~07/01/20 Annotation/Comment:: COVID-19 positive on 07/01/2020. Continues to require O2. Improved today to 7l on NC vs previous need for NRM at 14-15LMP. Chest xray yesterday also showed some improvement of infiltrates. Treated with Dexamethasone/Remdesivir and received Plasma. (2) Need for comfort care SNOMED Code(s): 771323804, 755455295 Code(s): JDS2478 - Status: Acute Priority: High Current Visit: Yes Annotation/Comment:: Anticipated that patient will be discharged home within next day or two. Family considering Hospice care. DNR/DNI. Family and patient did not wish to be considered for transfer to [place] during this hospitalization. (3) Pneumonia SNOMED Code(s): 420336557 Code(s): J18.9 - PNEUMONIA, UNSPECIFIED ORGANISM Status: Acute Priority: High Current Visit: Yes Onset Date: 07/10/20 Qualifiers: Pneumonia type: due to unspecified organism Laterality: bilateral Lung location: unspecified part of lung Qualified Code(s): J18.9 - Pneumonia, unspecified organism Annotation/Comment:: Covid pneumonia. Also grew out Strep Pneumoniae blood cultures. Sensitive to Vanco/Rocephin but given that species often more susceptible to PCNs, patient switched from Vanco to Zosyn. (4) CHF (congestive heart failure) SNOMED Code(s): 02657442 Code(s): I50.9 - HEART FAILURE, UNSPECIFIED Status: Acute Priority: High Current Visit: Yes Onset Date: 07/10/20 Qualifiers: Heart failure type: unspecified Heart failure chronicity: acute Qualified Code(s): I50.9 - Heart failure, unspecified Annotation/Comment:: No known previous history of coronary artery disease or CHF. No further work-up, including echocardiogram, etc., secondary to his comfort care status. Lasix dose decreased to single daily dose after initial diuresis. (5) D-dimer, elevated SNOMED Code(s): 310316771 Code(s): R79.89 - OTHER SPECIFIED ABNORMAL FINDINGS OF BLOOD CHEMISTRY Status: Acute Priority: High Current Visit: Yes Onset Date: 07/10/20 Annotation/Comment:: Further work-up per the family's request. Venous Doppler studies of the lower extremities and CTA of the chest were negative for DVT or PE on 07/10/2020. Initiated subcutaneous Lovenox therapy at VTE dose especially in light of current Covid infection on admission, however change to subcutaneous heparin secondary to evidence of anti-inflammatory effect with Covid infection based on studies. (6) Hypoalbuminemia SNOMED Code(s): 189799667 Code(s): E88.09 - OTH DISORDERS OF PLASMA-PROTEIN METABOLISM, NEC Status: Acute Priority: Medium Current Visit: Yes Onset Date: 07/10/20 Annotation/Comment:: Observe for now (7) Hypocalcemia SNOMED Code(s): 2521269 Code(s): E83.51 - HYPOCALCEMIA Status: Acute Priority: Medium Current Visit: Yes Onset Date: 07/10/20 Annotation/Comment:: Observe for now (8) COPD (chronic obstructive pulmonary disease) SNOMED Code(s): 87526368 Code(s): J44.9 - CHRONIC OBSTRUCTIVE PULMONARY DISEASE, UNSPECIFIED Status: Chronic Priority: High Current Visit: Yes Qualifiers: COPD type: COPD with acute lower respiratory infection Qualified Code(s): J44.0 - Chronic obstructive pulmonary disease with (acute) lower respiratory infection Annotation/Comment:: Patient is in a negative pressure room. Nebulizer treatments to be initiated on admission with patient not able to tolerate inhalers at this time. (9) Elevated lactic acid level SNOMED Code(s): 2872613 Code(s): R79.89 - OTHER SPECIFIED ABNORMAL FINDINGS OF BLOOD CHEMISTRY Status: Acute Priority: High Current Visit: Yes Onset Date: 07/10/20 Annotation/Comment:: Sepsis protocol initiated, including IV antibiotics as above. Follow-up lactic acid levels on 07/10 and 07/11 were normal. 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 Additional Lantus therapy initiated on 07/11. (11) Confusion SNOMED Code(s): 193960990 Code(s): R41.0 - DISORIENTATION, UNSPECIFIED Status: Chronic Priority: Medium Current Visit: Yes Annotation/Comment:: Note history of organic brain syndrome. Stable despite current infection. Patient has appeared appropriately oriented during stay. Note comfort care as above. (12) Mixed anxiety depressive disorder SNOMED Code(s): 843263017 Code(s): F41.8 - OTHER SPECIFIED ANXIETY DISORDERS Status: Chronic Priority: Medium Current Visit: Yes Annotation/Comment:: Note history of PTSD. Observe for now. (13) Sleep apnea SNOMED Code(s): 62094521 Code(s): G47.30 - SLEEP APNEA, UNSPECIFIED Status: Chronic Priority: Medium Current Visit: Yes Qualifiers: Sleep apnea type: unspecified type Qualified Code(s): G47.30 - Sleep apnea, unspecified Annotation/Comment:: As above with patient no longer using CPAP despite transfer records from the [facility]. - Problem List Review Problem List Initiated/Reviewed/Updated: Yes - My Orders Last 24 Hours: My Active Orders 07/15/20 10:14 Docusate Sodium/Sennosides [Senna Plus] 1 tab PO DAILY PRN 07/15/20 18:00 Docusate Sodium/Sennosides [Senna Plus] 1 tab PO BID 07/16/20 05:11 BASIC METABOLIC PANEL,BMP [CHEM] AM - Assessment Assessment:: As above. Slow improvement but still requires significant oxygen support. - Plan Plan:: Continue IV antibiotics for Strep Pneumoniae coverage. Patient finished with Remdesivir/Dexamethasone course today. Continue oxygen support. Several lengthy conversations between staff and patient's and daughter today. Family at this time wants to arrange for patient to return home instead of to halfway and they are strongly leaning towards Hospice care given patient's overall poor prognosis. Anticipate discharge either tomorrow or the following day. Most likely on Hospice care. Family needs time to outfit the home with a hospital bed, oxygen, etc.
[2020-07-15] MEDS: Diltiazem 120 MG Cap.CD PO SCH (17:11)
[2020-07-15] MEDS: Albuterol/Ipratropium 4 GM Inhalation Spray INH SCH (20:25)
[2020-07-16] MEDS: Piperacillin/Tazobactam 4.5 GM in Sodium Chloride 0.9% 100 ML IV SCH ×4 (00:35→17:54)
[2020-07-16] MEDS: Sodium Chloride 0.9% 10 ML Syringe FLUSH PRN ×4 (00:35→20:40)
[2020-07-16] MEDS: Heparin Sodium 5,000 Units/ML Vial SUBCUT SCH ×3 (01:00→18:21)
[2020-07-16 07:53] LABS: CHLORIDE,CL 100 mmol/L (98-107); SODIUM,NA 136 mmol/L (136-145)
[2020-07-16] MEDS: Insulin Glarg,Human.Rec.Analog 100 Unit/ML SUBCUT SCH ×2 (07:56→20:18)
[2020-07-16] MEDS: Insulin Lispro 100 Units/ML 3 ML Vial SUBCUT SCH ×2 (07:57→11:12)
[2020-07-16] MEDS: Albuterol/Ipratropium 4 GM Inhalation Spray INH SCH ×4 (07:59→20:18)
[2020-07-16] MEDS: buPROPion 150 MG Tab.ER PO SCH (08:02)
[2020-07-16] MEDS: Finasteride 5 MG Tab PO SCH (08:02)
[2020-07-16] MEDS: Mirtazapine 15 MG Tab PO SCH (08:03)
[2020-07-16] MEDS: Prazosin 1 MG Cap PO SCH (08:03)
[2020-07-16] MEDS: Lisinopril 5 MG Tab PO SCH (08:03)
[2020-07-16] MEDS: Escitalopram 20 MG Tab PO SCH (08:03)
[2020-07-16] MEDS: Carbidopa/Levodopa 25-100 MG Tab PO SCH ×3 (08:04→18:20)
--- NOTE | 2020-07-16 13:50 | PCM.PN ---
- General Info Date of Service: 07/16/20 Admission Dx/Problem (Free Text): 1. COVID-19 2. Streptococcus pneumoniae sepsis 3. Bilateral pneumonia 4. IDDM 5. COPD Functional Status: Reports: Pain Controlled, Tolerating Diet, Urinating, Incentive Spirometry. Denies: Ambulating, New Symptoms Pain Score: 0 - Review of Systems General: Reports: Weakness (Moderate), Fatigue (Moderate), Appetite (Adequate). Denies: Fever, Malaise, Chills, Night Sweats HEENT: Reports: No Symptoms, Post Nasal Drip, Sinus Congestion. Denies: Headaches Pulmonary: Reports: Shortness of Breath, Cough, Sputum, Wheezing. Denies: Hemoptysis Cardiovascular: Reports: Dyspnea on Exertion. Denies: Chest Pain, Palpitations, Orthopnea, Edema, Lightheadedness Gastrointestinal: Reports: Difficulty Swallowing (Mild dysphagia with fluids but taking tablets well). Denies: Abdominal Pain, Constipation (Normal bowel movement yesterday by his history), Decreased Appetite, Diarrhea, Flatus, Hematochezia, Melena, Nausea, Vomiting Genitourinary: Reports: No Symptoms. Denies: Dysuria Musculoskeletal: Reports: No Symptoms Skin: Reports: Pruritis. Denies: Diaphoresis Neurological: Reports: Confusion (Possible COVID-19 fog), Difficulty Walking (Secondary to weakness), Weakness. Denies: Headache Psychiatric: Reports: Confusion (As above). Denies: Agitation, Hallucinations - Patient Data Vitals - Most Recent: Last Vital Signs Temp 36.4 C 07/16/20 08:05 Pulse 117 H 07/16/20 08:05 Resp 32 H 07/16/20 08:05 BP 120/61 07/16/20 08:05 Pulse Ox 89 L 07/16/20 12:05 Vital Signs - 24 hr 07/15/20 07/16/20 07/16/20 17:11 07:50 07:55 Temperature [ Temporal] Pulse, 115 H Peripheral Pulse, Peripheral [ Left Pulse Oximetry] Respiratory Rate Blood Pressure 132/88 Blood Pressure [Left Upper Arm ] O2 Sat by Pulse 97 86 L Oximetry 07/16/20 07/16/20 07/16/20 08:00 08:03 08:05 Temperature [ 36.4 C Temporal] Pulse, Peripheral Pulse, 117 H Peripheral [ Left Pulse Oximetry] Respiratory 32 H Rate Blood Pressure 120/61 Blood Pressure 120/61 [Left Upper Arm ] O2 Sat by Pulse 90 L 87 L Oximetry 07/16/20 12:05 Temperature [ Temporal] Pulse, Peripheral Pulse, Peripheral [ Left Pulse Oximetry] Respiratory Rate Blood Pressure Blood Pressure [Left Upper Arm ] O2 Sat by Pulse 89 L Oximetry Weight - Most Recent: 125.645 kg I&O - Last 24 Hours: Intake & Output 07/15/20 07/16/20 07/16/20 22:59 06:59 14:59 Intake Total 465 109 0116 Balance 765 546 5019 Imaging Impressions - Last 24 Hours: None Lab Results Last 24 Hours: Laboratory Results - last 24 hr 07/15/20 07/15/20 07/16/20 Range/Units 17:10 20:20 07:29 WBC 6.9 (4.0-10.2) K/uL RBC 4.42 (4.33-5.41) M/uL Hgb 13.6 (13.1-16.8) g/dL Hct 41.2 (39.0-49.0) % MCV 93.2 (84.0-98.0) fL MCH 30.8 (28.2-33.3) pg MCHC 33.0 (31.7-36.0) g/dL RDW 12.7 (11.2-14.1) % Plt Count 201 (150-350) K/uL Neut % (Auto) 89.4 H (45.0-80.0) % Lymph % (Auto) 6.4 L (10.0-50.0) % [place] % (Auto) 3.8 (2.0-14.0) % Eos % (Auto) 0.4 (0.0-5.0) % Baso % (Auto) 0.0 (0.0-2.0) % Neut # (Auto) 6.12 (1.40-7.00) K/uL Lymph # (Auto) 0.44 L (0.50-3.50) K/uL [place] # (Auto) 0.26 (0.00-1.00) K/uL Eos # (Auto) 0.03 (0.00-0.50) K/uL Baso # (Auto) 0.00 (0.00-0.20) K/uL Sodium (136-145) mmol/L Potassium (3.5-5.1) mmol/L Chloride (98-107) mmol/L Carbon Dioxide (21.0-32.0) mmol/L BUN (7-18) mg/dL Creatinine (0.51-1.17) mg/dL Est Cr Clr Drug Dosing mL/min Estimated GFR (MDRD) mL/min Glucose (74-106) mg/dL POC Glucose 264 H* 386 H* (65-110) mg/dl Calcium (8.5-10.1) mg/dL 07/16/20 07/16/20 Range/Units 07:29 11:09 WBC (4.0-10.2) K/uL RBC (4.33-5.41) M/uL Hgb (13.1-16.8) g/dL Hct (39.0-49.0) % MCV (84.0-98.0) fL MCH (28.2-33.3) pg MCHC (31.7-36.0) g/dL RDW (11.2-14.1) % Plt Count (150-350) K/uL Neut % (Auto) (45.0-80.0) % Lymph % (Auto) (10.0-50.0) % [place] % (Auto) (2.0-14.0) % Eos % (Auto) (0.0-5.0) % Baso % (Auto) (0.0-2.0) % Neut # (Auto) (1.40-7.00) K/uL Lymph # (Auto) (0.50-3.50) K/uL [place] # (Auto) (0.00-1.00) K/uL Eos # (Auto) (0.00-0.50) K/uL Baso # (Auto) (0.00-0.20) K/uL Sodium 136 (136-145) mmol/L Potassium 4.3 (3.5-5.1) mmol/L Chloride 100 (98-107) mmol/L Carbon Dioxide 31.3 (21.0-32.0) mmol/L BUN 40 H (7-18) mg/dL Creatinine 1.07 (0.51-1.17) mg/dL Est Cr Clr Drug Dosing 76.66 mL/min Estimated GFR (MDRD) > 60 mL/min Glucose 182 H (74-106) mg/dL POC Glucose 313 H* (65-110) mg/dl Calcium 8.6 (8.5-10.1) mg/dL Ricki Results Last 24 Hours: Microbiology 07/10/20 12:20 Blood - Venous - Lab Draw Bacterial Identification - Preliminary Streptococcus Pneumoniae 07/10/20 21:04 Urine, Clean Catch Urine Culture - Final NO GROWTH AFTER 2 DAYS 07/10/20 12:20 Blood - Venous - Lab Draw Aerobic Blood Culture - Preliminary 07/10/20 12:13 Blood - Venous Aerobic Blood Culture - Preliminary Gram Positive Cocci 07/10/20 12:13 Blood - Venous Anaerobic Blood Culture - Preliminary 07/10/20 12:35 Nasal, Unspecified Influenza Type A Antigen Screen - Final NEGATIVE INFLUENZA A VIRUS AG REFERENCE RANGE: NEGATIVE 07/10/20 12:35 Nasal, Unspecified Influenza Type B Antigen Screen - Final NEGATIVE INFLUENZA B VIRUS AG REFERENCE RANGE: NEGATIVE Med Orders - Current: Current Medications Acetaminophen (Tylenol) 650 mg PO Q4H PRN PRN Reason: Pain Last Admin: 07/12/20 17:35 Dose: 650 mg Documented by: Albuterol (Proventil Neb Soln) 2.5 mg INH Q2H PRN PRN Reason: SHORTNESS OF BREATH Albuterol/Ipratropium (Duoneb 3.0-0.5 Mg/3 Ml) 3 ml NEB Q4HRRT PRN PRN Reason: Dyspnea Albuterol/Ipratropium (Combivent Respimat) 0 gm INH QID [facility] Last Admin: 07/16/20 11:11 Dose: 1 puff Documented by: Bupropion HCl (Wellbutrin Xl) 300 mg PO DAILY [facility] Last Admin: 07/16/20 08:02 Dose: 300 mg Documented by: Carbidopa/Levodopa (Sinemet 25-100 Mg) 1 tab PO TID [facility] Last Admin: 07/16/20 11:11 Dose: 1 tab Documented by: Dextrose/Water (Dextrose 50% In Water) 50 ml IV ASDIRECTED PRN PRN Reason: Hypoglycemia Diltiazem HCl (Cardizem Cd) 120 mg PO QPM [facility] Last Admin: 07/15/20 17:11 Dose: 120 mg Documented by: Escitalopram Oxalate (Lexapro) 10 mg PO DAILY [facility] Last Admin: 07/16/20 08:03 Dose: 10 mg Documented by: Finasteride (Proscar) 5 mg PO DAILY [facility] Last Admin: 07/16/20 08:02 Dose: 5 mg Documented by: Glucagon (Glucagen) 1 mg IM ASDIRECTED PRN PRN Reason: Hypoglycemia Heparin Sodium (Porcine) (Heparin Sodium) 5,000 units SUBCUT Q8H [facility] Last Admin: 07/16/20 10:55 Dose: 5,000 units Documented by: Piperacillin Sod/Tazobactam (Sod 4.5 gm/ Sodium Chloride) 100 mls @ 200 mls/hr IV Q6H [facility] Last Admin: 07/16/20 11:10 Dose: 200 mls/hr Documented by: Insulin Glargine (Lantus) 6 unit SUBCUT Q12HR [facility] Last Admin: 07/16/20 07:56 Dose: 6 units Documented by: Insulin Human Lispro (Humalog) 0 unit SUBCUT QIDACANDBED [facility]; Protocol Last Admin: 07/16/20 11:12 Dose: 12 units Documented by: Lisinopril (Prinivil) 2.5 mg PO DAILY [facility] Last Admin: 07/16/20 08:03 Dose: 2.5 mg Documented by: Mirtazapine (Remeron) 15 mg PO DAILY [facility] Last Admin: 07/16/20 08:03 Dose: 15 mg Documented by: Prazosin HCl (Minpress) 1 mg PO DAILY [facility] Last Admin: 07/16/20 08:03 Dose: 1 mg Documented by: Saliva Substitute (Wild-Stir Oral [place]) 1 ml MUCMEM ASDIRECTED PRN PRN Reason: Other Last Admin: 07/11/20 14:52 Dose: 5 sprays Documented by: Senna/Docusate Sodium (Senna Plus) 1 tab PO BID [facility] Last Admin: 07/16/20 08:02 Dose: 1 tab Documented by: Senna/Docusate Sodium (Senna Plus) 1 tab PO DAILY PRN PRN Reason: Constipation Last Admin: 07/15/20 11:25 Dose: 1 tab Documented by: Sodium Chloride (Saline Flush) 10 ml FLUSH ASDIRECTED PRN PRN Reason: Keep Vein Open Last Admin: 07/16/20 11:15 Dose: 10 ml Documented by: Sodium Chloride (Saline Flush) 10 ml FLUSH Q12HR PRN PRN Reason: Keep Vein Open Last Admin: 07/14/20 20:35 Dose: 10 ml Documented by: Temazepam (Restoril) 15 mg PO BEDTIME PRN PRN Reason: Insomnia Last Admin: 07/13/20 23:21 Dose: 15 mg Documented by: Discontinued Medications Acetaminophen (Tylenol) 650 mg PO NOW ONE Stop: 07/10/20 11:59 Last Admin: 07/10/20 12:46 Dose: 650 mg Documented by: Albuterol/Ipratropium (Duoneb 3.0-0.5 Mg/3 Ml) 3 ml NEB Q6H [facility] Last Admin: 07/15/20 17:12 Dose: 3 ml Documented by: Amlodipine Besylate (Norvasc) 10 mg PO DAILY [facility] Last Admin: 07/11/20 08:07 Dose: 10 mg Documented by: Ascorbic Acid (Vitamin C) 1,000 mg PO BID [facility] Last Admin: 07/15/20 07:33 Dose: 1,000 mg Documented by: Atorvastatin Calcium (Lipitor) 5 mg PO DAILY [facility] Last Admin: 07/15/20 07:34 Dose: 5 mg Documented by: Cholecalciferol (Vitamin D3) 75 mcg PO DAILY [facility] Last Admin: 07/15/20 07:35 Dose: 75 mcg Documented by: Dexamethasone (Decadron) 6 mg IVPUSH Q24H [facility] Last Admin: 07/14/20 20:36 Dose: 6 mg Documented by: Dextrose/Water (Dextrose 50% In Water) 50 ml IV ASDIRECTED PRN PRN Reason: Hypoglycemia Diltiazem HCl (Diltiazem) 20 mg IVPUSH ONETIME ONE Stop: 07/11/20 09:43 Last Admin: 07/11/20 11:23 Dose: 10 mg Documented by: Doxycycline Monohydrate (Doxycycline Monohydrate) 100 mg PO ONETIME ONE Stop: 07/10/20 14:52 Last Admin: 07/10/20 17:19 Dose: 100 mg Documented by: Enoxaparin Sodium (Lovenox) 100 mg SUBCUT Q24H [facility] Last Admin: 07/10/20 18:50 Dose: 100 mg Documented by: Famotidine (Pepcid) 40 mg IVPUSH ONETIME ONE Stop: 07/10/20 11:55 Last Admin: 07/10/20 12:46 Dose: 40 mg Documented by: Famotidine (Pepcid) 20 mg IVPUSH Q24H [facility] Last Admin: 07/15/20 11:24 Dose: 20 mg Documented by: Furosemide (Lasix) 40 mg IVPUSH Q8H [facility] Last Admin: 07/12/20 08:07 Dose: 40 mg Documented by: Furosemide (Lasix) 40 mg IVPUSH DAILY [facility] Last Admin: 07/15/20 07:32 Dose: 40 mg Documented by: Glucagon (Glucagen) 1 mg IM ASDIRECTED PRN PRN Reason: Hypoglycemia Guaifenesin/Dextromethorphan (Mucinex Dm Er 600-30 Mg) 1 tab PO BID [facility] Last Admin: 07/15/20 07:34 Dose: 1 tab Documented by: Ceftriaxone Sodium 1 gm/ (Sodium Chloride) 100 mls @ 200 mls/hr IV Q12H [facility] Last Admin: 07/10/20 13:56 Dose: 200 mls/hr Documented by: Vancomycin HCl 1.5 gm/ Premix 300 mls @ 200 mls/hr IV Q24H [facility] Last Admin: 07/10/20 20:42 Dose: 200 mls/hr Documented by: Remdesivir 200 mg/ Sodium (Chloride) 290 mls @ 290 mls/hr IV ONETIME ONE Stop: 07/10/20 16:59 Last Admin: 07/10/20 18:27 Dose: 290 mls/hr Documented by: Sodium Chloride (Normal Saline) 250 mls @ 20 mls/hr IV ASDIRECTED [facility] Last Admin: 07/10/20 21:00 Dose: 20 mls/hr Documented by: Ceftriaxone Sodium 1 gm/ (Sodium Chloride) 100 mls @ 200 mls/hr IV Q12H [facility] Last Admin: 07/11/20 00:11 Dose: 200 mls/hr Documented by: Remdesivir 100 mg/ Sodium (Chloride) 270 mls @ 270 mls/hr IV Q24H [facility] Stop: 07/15/20 18:01 Last Admin: 07/14/20 17:45 Dose: 270 mls/hr Documented by: Vancomycin HCl 1.5 gm/ Premix 300 mls @ 200 mls/hr IV Q24H [facility] Vancomycin HCl 1.5 gm/ Premix 300 mls @ 200 mls/hr IV Q24H [facility] Last Admin: 07/10/20 22:23 Dose: Not Given Documented by: Vancomycin HCl 1.5 gm/ Premix 300 mls @ 200 mls/hr IV Q24H [facility] Last Admin: 07/11/20 19:38 Dose: 200 mls/hr Documented by: Ceftriaxone Sodium 1 gm/ (Sodium Chloride) 100 mls @ 200 mls/hr IV Q12H [facility] Last Admin: 07/15/20 12:47 Dose: 200 mls/hr Documented by: Sodium Chloride (Normal Saline) 250 mls @ 20 mls/hr IV ONETIME ONE Stop: 07/12/20 03:29 Last Admin: 07/11/20 14:44 Dose: 20 mls/hr Documented by: Vancomycin HCl 1.5 gm/ Premix 300 mls @ 200 mls/hr IV Q12H [facility] Last Admin: 07/14/20 07:44 Dose: 200 mls/hr Documented by: Iopamidol (Isovue-370 (76%)) 100 ml IVPUSH ONETIME ONE Stop: 07/10/20 15:34 Last Admin: 07/10/20 18:22 Dose: 100 ml Documented by: Potassium Chloride (Klor-Con M20) 20 meq PO TID [facility] Last Admin: 07/12/20 11:50 Dose: 20 meq Documented by: Potassium Chloride (Klor-Con M20) 20 meq PO DAILY [facility] Last Admin: 07/15/20 07:40 Dose: 20 meq Documented by: Vancomycin HCl (Pharmacy To Dose - Vancomycin) 1 dose .XX ASDIRECTED [facility] - Exam Quality Assessment: Supplemental Oxygen (10-10.5 L/min by high flow nasal cannula), DVT Prophylaxis (Subcutaneous sodium heparin). No: Central Line/PICC, Urine Catheter, Skin Breakdown, Restraints General: Alert, Cooperative, No Acute Distress. No: Oriented (Mild confusion versus COVID-19 fog) HEENT: Pupils Equal, Pupils Reactive, EOMI, Mucous Membr. Moist/[place] Neck: Supple, Trachea Midline, No JVD, No Thyromegaly, Carotid Bruit (Mild bilateral ). No: Lymphadenopathy Lungs: Decreased Breath Sounds (Mild diffuse bilateral), Rales (Mild to moderate diffuse bilateral), Rhonchi (Mild diffuse bilateral), Wheezing (Mild diffuse bilateral). No: Normal Respiratory Effort (Mild dyspnea with no retractions), Rub Cardiovascular: Regular Rate, No Murmurs, Tachycardia. No: Murmurs, Gallops GI/Abdominal Exam: Normal Bowel Sounds, Soft, Non-Tender, No Organomegaly, No Distention, No Abnormal Bruit, No Mass, Other (Obese). No: Pelvis Stable, Gu arding (Male) Exam: Deferred Back Exam: Normal Inspection, Full Range of Motion. No: CVA Tenderness (L), CVA Tenderness (R), Muscle Spasm, Paraspinal Tenderness, Vertebral Tenderness Extremities: Normal Range of Motion, Non-Tender, No Pedal Edema, Normal Capillary Refill, Other (Moderate venous stasis dermatitis of the anterior tibial regions bilaterally). No: Shanta's Sign Peripheral Pulses: 2+: Radial (L), Radial (R), Dorsalis Pedis (L), Dorsalis Pedis (R) Skin: Rash (Venous stasis dermatitis as above), Ecchymosis (Moderate forearms bilaterally. No petechiae.) Neurological: No New Focal Deficit, Other (Stable generalized weakness with negative Babinski's. Confusion as above) Psy/Mental Status: Alert, Normal Affect, Normal Mood. No: Agitated, Hallucinations, Withdrawal Symptoms Sepsis Event Note - Evaluation Sepsis Screening Result: Sepsis Risk - Focused Exam Vital Signs: Vital Signs Temp Pulse Resp BP BP Pulse Ox 07/16/20 12:05 89 L 07/16/20 08:05 36.4 C 117 H 32 H 120/61 87 L 07/16/20 08:03 120/61 07/16/20 08:00 90 L 07/16/20 07:55 86 L 07/16/20 07:50 97 - Problem List & Annotations (1) Pneumonia SNOMED Code(s): 472216514 Code(s): J18.9 - PNEUMONIA, UNSPECIFIED ORGANISM Status: Acute Priority: High Current Visit: Yes Onset Date: 07/10/20 Qualifiers: Pneumonia type: due to Pneumococcus Laterality: bilateral Lung location: unspecified part of lung Qualified Code(s): J13 - Pneumonia due to Streptococcus pneumoniae Annotation/Comment:: Covid-19 and bilateral Streptococcus pneumoniae with initial sepsis picture. Prognosis is extremely poor with patient still requiring high flow oxygen therapy with persistent hypoxia. Note previous IV vancomycin, IV Rocephin, and oral doxycycline therapy, which was switched to Zosyn during later phases of this hospitalization. No significant diarrhea or evidence of C. difficile colitis. Long-term prognosis is extremely poor with Zoom meeting to be held later today to determine further treatment plan, including correction placement, swing bed, hospice, etc. Patient did complete his IV remdesivir and IV Decadron on 07/18. Emotional support was provided to the patient. (2) COVID-19 SNOMED Code(s): 970495651 Code(s): U07.1 - COVID-19 Status: Acute Priority: High Current Visit: Yes Onset Date: ~07/01/20 Annotation/Comment:: COVID-19 positive on 07/01/2020. Continues to require O2 as above and was switched from nonrebreather mask to high flow nasal cannula therapy for his comfort. The patient was treated with IV dexamethasone/Remdesivir and received convalescent plasma on 07/11. (3) Need for comfort care SNOMED Code(s): 235688526, 670283926 Code(s): PYD2246 - Status: Acute Priority: High Current Visit: Yes Annotation/Comment:: Family considering Hospice care. DNR/DNI. Family and patient did not wish to be considered for transfer to [place] during this hospitalization. (4) Elevated lactic acid level SNOMED Code(s): 7813251 Code(s): R79.89 - OTHER SPECIFIED ABNORMAL FINDINGS OF BLOOD CHEMISTRY Status: Acute Priority: High Current Visit: Yes Onset Date: 07/10/20 Annotation/Comment:: Sepsis protocol initiated, including IV antibiotics as above. Follow-up lactic acid levels on 07/10 and 07/11 were normal. (5) CHF (congestive heart failure) SNOMED Code(s): 08479831 Code(s): I50.9 - HEART FAILURE, UNSPECIFIED Status: Acute Priority: High Current Visit: Yes Onset Date: 07/10/20 Qualifiers: Heart failure type: unspecified Heart failure chronicity: acute Qualified Code(s): I50.9 - Heart failure, unspecified Annotation/Comment:: No known previous history of coronary artery disease or CHF. No further work-up, including echocardiogram, etc., secondary to his comfort care status. Previous IV Lasix dose decreased to single daily dose after initial diuresis. (6) D-dimer, elevated SNOMED Code(s): 283933428 Code(s): R79.89 - OTHER SPECIFIED ABNORMAL FINDINGS OF BLOOD CHEMISTRY Status: Acute Priority: High Current Visit: Yes Onset Date: 07/10/20 Annotation/Comment:: Further work-up per the family's request. Venous Doppler studies of the lower extremities and CTA of the chest were negative for DVT or PE on 07/10/2020. Initiated subcutaneous Lovenox therapy at VTE dose especially in light of current Covid infection on admission, however change to subcutaneous heparin secondary to evidence of anti-inflammatory effect with Covid infection based on studies. (7) Hypoalbuminemia SNOMED Code(s): 275976425 Code(s): E88.09 - OTH DISORDERS OF PLASMA-PROTEIN METABOLISM, NEC Status: Acute Priority: Medium Current Visit: Yes Onset Date: 07/10/20 Annotation/Comment:: Observe for now (8) Hypocalcemia SNOMED Code(s): 5902765 Code(s): E83.51 - HYPOCALCEMIA Status: Acute Priority: Medium Current Visit: Yes Onset Date: 07/10/20 Annotation/Comment:: Observe for now (9) COPD (chronic obstructive pulmonary disease) SNOMED Code(s): 32815257 Code(s): J44.9 - CHRONIC OBSTRUCTIVE PULMONARY DISEASE, UNSPECIFIED Status: Chronic Priority: High Current Visit: Yes Qualifiers: COPD type: COPD with acute lower respiratory infection Qualified Code(s): J44.0 - Chronic obstructive pulmonary disease with (acute) lower respiratory infection Annotation/Comment:: Patient is in a negative pressure room. DuoNeb nebulizer treatments given during this hospitalization with patient not able to tolerate inhalers initially after admission. (10) Confusion SNOMED Code(s): 990476091 Code(s): R41.0 - DISORIENTATION, UNSPECIFIED Status: Chronic Priority: Medium Current Visit: Yes Annotation/Comment:: Note history of organic brain syndrome. Stable despite current infection, however cannot rule out concomitant COVID-19 fog. Patient has appeared appropriately oriented during stay. Note comfort care as above. (11) Diabetes mellitus SNOMED Code(s): 86588870 Code(s): E11.9 - TYPE 2 DIABETES MELLITUS WITHOUT COMPLICATIONS Status: Chronic Priority: High Current Visit: Yes Qualifiers: Diabetes mellitus type: type 2 Diabetes mellitus terminal press operator insulin use: with terminal press operator use Diabetes mellitus complication status: with neurologic complications Diabetes mellitus complication detail: with polyneuropathy Qualified Code(s): E11.42 - Type 2 diabetes mellitus with diabetic polyneuropathy; Z79.4 - halfway (current) use of insulin Annotation/Comment:: Humalog sliding scale initiated on admission. Additional Lantus therapy initiated on 07/11. Per the family's request his Accu-Cheks were changed to a twice daily basis on 07/16 with initiation of Humalog mix sliding scale. Note previous Decadron therapy. (12) Mixed anxiety depressive disorder SNOMED Code(s): 486828530 Code(s): F41.8 - OTHER SPECIFIED ANXIETY DISORDERS Status: Chronic Priority: Medium Current Visit: Yes Annotation/Comment:: Note history of PTSD. Observe for now. (13) Sleep apnea SNOMED Code(s): 27016444 Code(s): G47.30 - SLEEP APNEA, UNSPECIFIED Status: Chronic Priority: Medium Current Visit: Yes Qualifiers: Sleep apnea type: unspecified type Qualified Code(s): G47.30 - Sleep apnea, unspecified Annotation/Comment:: As above with patient no longer using CPAP despite transfer records from the correction. (14) Atrial flutter SNOMED Code(s): 5973505 Code(s): I48.92 - UNSPECIFIED ATRIAL FLUTTER Status: Acute Priority: High Current Visit: Yes Onset Date: 07/10/20 Qualifiers: Atrial flutter type: atypical Qualified Code(s): I48.4 - Atypical atrial flutter Annotation/Comment:: No chest pain or anginal type symptoms. Note initial Lovenox and then subsequent subcu heparin therapy as above. Persistent tachycardia on 07/16. 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 - Problem List Review Problem List Initiated/Reviewed/Updated: Yes - Assessment Assessment:: As above. - Plan Plan:: As above. Probable discharge tomorrow with final discharge plan pending today's family teleconference on Zoom. Note extended hospitalization required secondary to sepsis, IV treatment of his COVID-19, etc. as above.
[2020-07-16] MEDS ORDERED: 50% Dextrose in Water 50 ML Syringe IV PRN (13:52)
[2020-07-16] MEDS ORDERED: Glucagon,Human Recombinant 1 MG Vial IM PRN (13:52)
[2020-07-16] MEDS: Diltiazem 120 MG Cap.CD PO SCH (17:47)
[2020-07-16] MEDS: Insulin Lispro Protamine/Lispro 75-25 100 Units/ML 10 ML Vial SUBCUT SCH (18:21)
[2020-07-16] MEDS ORDERED: Ondansetron 4 MG/2 ML SDV IVPUSH PRN (20:32)
[2020-07-16] MEDS ORDERED: Morphine 2 MG/ML SYRINGE IVPUSH PRN (20:33)
[2020-07-17] MEDS: Piperacillin/Tazobactam 4.5 GM in Sodium Chloride 0.9% 100 ML IV SCH ×4 (00:47→17:20)
[2020-07-17] MEDS: Heparin Sodium 5,000 Units/ML Vial SUBCUT SCH ×2 (01:00→10:03)
[2020-07-17] MEDS: Sodium Chloride 0.9% 10 ML Syringe FLUSH PRN ×3 (05:17→17:20)
[2020-07-17] MEDS: Albuterol/Ipratropium 4 GM Inhalation Spray INH SCH ×4 (07:32→19:37)
[2020-07-17] MEDS: Insulin Lispro Protamine/Lispro 75-25 100 Units/ML 10 ML Vial SUBCUT SCH ×2 (07:32→17:21)
[2020-07-17] MEDS: Lisinopril 5 MG Tab PO SCH (07:34)
[2020-07-17] MEDS: buPROPion 150 MG Tab.ER PO SCH (07:34)
[2020-07-17] MEDS: glipiZIDE 5 MG Tab PO SCH ×2 (07:34→17:20)
[2020-07-17] MEDS: Finasteride 5 MG Tab PO SCH (07:38)
[2020-07-17] MEDS: Prazosin 1 MG Cap PO SCH (07:38)
[2020-07-17] MEDS: Carbidopa/Levodopa 25-100 MG Tab PO SCH ×3 (07:38→17:20)
[2020-07-17] MEDS: Mirtazapine 15 MG Tab PO SCH (07:38)
[2020-07-17] MEDS: Escitalopram 20 MG Tab PO SCH (07:39)
[2020-07-17] MEDS: Insulin Glarg,Human.Rec.Analog 100 Unit/ML SUBCUT SCH (07:40)
--- NOTE | 2020-07-17 10:12 | PCM.PN ---
- General Info Date of Service: 07/17/20 Admission Dx/Problem (Free Text): 1. COVID-19 2. Streptococcus pneumoniae sepsis 3. Bilateral pneumonia 4. IDDM 5. COPD Subjective Update: Patient more alert earlier this morning by nurses history however somewhat sedated at time of my examination Functional Status: Reports: Tolerating Diet, Urinating, Incentive Spirometry. Denies: Ambulating, New Symptoms Pain Score: 0 - Review of Systems General: Reports: Weakness, Fatigue. Denies: Fever, Malaise, Chills, Night Sweats, Appetite (Adequate) HEENT: Reports: Post Nasal Drip, Sinus Congestion Pulmonary: Reports: Shortness of Breath, Cough, Wheezing. Denies: Pleuritic Chest Pain, Sputum, Hemoptysis Cardiovascular: Reports: Palpitations, Dyspnea on Exertion. Denies: Chest Pain, Orthopnea, Edema Gastrointestinal: Reports: Abdominal Pain. Denies: Constipation, Decreased Appetite, Diarrhea, Hematochezia, Melena, Nausea, Vomiting Genitourinary: Reports: No Symptoms. Denies: Dysuria, Frequency, Urgency, Incontinence, Hematuria, Retention, Flank Pain Musculoskeletal: Reports: No Symptoms. Denies: Neck Pain, Shoulder Pain, Arm Pain, Back Pain Skin: Reports: Bruising (Stable). Denies: Diaphoresis, Pruritis, Rash Neurological: Reports: Confusion (Stable), Difficulty Walking, Weakness Psychiatric: Reports: Confusion (As above). Denies: Depression, Anxiety, Agitation, Cravings, Hallucinations - Patient Data Vitals - Most Recent: Last Vital Signs Temp 36.5 C 07/17/20 07:41 Pulse 108 H 07/17/20 07:41 Resp 20 07/17/20 07:41 BP 119/73 07/17/20 07:41 Pulse Ox 88 L 07/17/20 07:41 Vital Signs - 24 hr 07/16/20 07/16/20 07/17/20 12:05 17:47 07:34 Temperature [ Temporal] Pulse, 117 H Peripheral Pulse, Peripheral [ Left Pulse Oximetry] Respiratory Rate Blood Pressure 123/70 119/73 Blood Pressure [Left Upper Arm ] O2 Sat by Pulse 89 L Oximetry 07/17/20 07/17/20 07:38 07:41 Temperature [ 36.5 C Temporal] Pulse, Peripheral Pulse, 108 H Peripheral [ Left Pulse Oximetry] Respiratory 20 Rate Blood Pressure 119/73 Blood Pressure 119/73 [Left Upper Arm ] O2 Sat by Pulse 88 L Oximetry Weight - Most Recent: 125.645 kg I&O - Last 24 Hours: Intake & Output 07/16/20 07/17/20 07/17/20 22:59 06:59 14:59 Intake Total 200 120 Balance 200 120 Imaging Impressions - Last 24 Hours: Chest x-ray, portable, shows moderate to severe diffuse right-sided pulmonary infiltrates with moderate left-sided pulmonary infiltrates including the left lower lobe. Mild cardiomegaly with moderate prominence of the proximal aortic arch resulting in tracheal deviation to the right with no direct evidence of aneurysm. Mild CHF and COPD also present with Mickey B lines noted. No pneumothorax. Findings significantly progressive since last chest x-ray on 07/14/2020. Lab Results Last 24 Hours: Laboratory Results - last 24 hr 07/16/20 07/16/20 07/17/20 Range/Units 11:09 18:20 07:29 POC Glucose 313 H* 274 H* 124 H (65-110) mg/dl Ricki Results Last 24 Hours: Microbiology 07/10/20 12:13 Aerobic Blood Culture - Final Blood - Venous Gram Positive Cocci Anaerobic Blood Culture - Final 07/10/20 12:20 Aerobic Blood Culture - Final Blood - Venous - Lab Draw 07/10/20 12:20 Bacterial Identification - Final Blood - Venous - Lab Draw Streptococcus Pneumoniae 07/16/20 18:00 Stool Occult Blood (RICKI) - Final Stool / Feces NEGATIVE OCCULT BLOOD REFERENCE RANGE: NEGATIVE Med Orders - Current: Current Medications Acetaminophen (Tylenol) 650 mg PO Q4H PRN PRN Reason: Pain Last Admin: 07/12/20 17:35 Dose: 650 mg Documented by: Albuterol (Proventil Neb Soln) 2.5 mg INH Q2H PRN PRN Reason: SHORTNESS OF BREATH Albuterol/Ipratropium (Duoneb 3.0-0.5 Mg/3 Ml) 3 ml NEB Q4HRRT PRN PRN Reason: Dyspnea Albuterol/Ipratropium (Combivent Respimat) 0 gm INH QID [facility], [facility] Last Admin: 07/17/20 07:32 Dose: 1 puff Documented by: Bupropion HCl (Wellbutrin Xl) 300 mg PO DAILY [facility], [facility] Last Admin: 07/17/20 07:34 Dose: 300 mg Documented by: Carbidopa/Levodopa (Sinemet 25-100 Mg) 1 tab PO TID [facility], [facility] Last Admin: 07/17/20 07:38 Dose: 1 tab Documented by: Dextrose/Water (Dextrose 50% In Water) 50 ml IV ASDIRECTED PRN PRN Reason: Hypoglycemia Diltiazem HCl (Cardizem Cd) 180 mg PO QPM [facility] Escitalopram Oxalate (Lexapro) 10 mg PO DAILY [facility] Last Admin: 07/17/20 07:39 Dose: 10 mg Documented by: Finasteride (Proscar) 5 mg PO DAILY [facility] Last Admin: 07/17/20 07:38 Dose: 5 mg Documented by: Glipizide (Glucotrol) 5 mg PO BID [facility], [facility] Last Admin: 07/17/20 07:34 Dose: 5 mg Documented by: Glucagon (Glucagen) 1 mg IM ASDIRECTED PRN PRN Reason: Hypoglycemia Piperacillin Sod/Tazobactam (Sod 4.5 gm/ Sodium Chloride) 100 mls @ 200 mls/hr IV Q6H [facility] Last Admin: 07/17/20 05:17 Dose: 200 mls/hr Documented by: Insulin Glargine (Lantus) 6 unit SUBCUT Q12HR [facility] Last Admin: 07/17/20 07:40 Dose: 6 units Documented by: Insulin Lispro Protam/Lispro Human (Humalog Mix 75-25) 0 unit SUBCUT BIDAC [facility], [facility]; Protocol Last Admin: 07/17/20 07:32 Dose: Not Given Documented by: Lisinopril (Prinivil) 2.5 mg PO DAILY [facility] Last Admin: 07/17/20 07:34 Dose: 2.5 mg Documented by: Mirtazapine (Remeron) 15 mg PO DAILY [facility] Last Admin: 07/17/20 07:38 Dose: 15 mg Documented by: Morphine Sulfate (Morphine) 2 mg IVPUSH Q2H PRN PRN Reason: Shortness of Breath Last Admin: 07/16/20 20:41 Dose: 2 mg Documented by: Ondansetron HCl (Zofran) 4 mg IVPUSH Q6H PRN PRN Reason: Nausea/Vomiting Last Admin: 07/16/20 20:41 Dose: 4 mg Documented by: Prazosin HCl (Minpress) 1 mg PO DAILY [facility] Last Admin: 07/17/20 07:38 Dose: 1 mg Documented by: Saliva Substitute (Wild-Stir Oral [place]) 1 ml MUCMEM ASDIRECTED PRN PRN Reason: Other Last Admin: 07/11/20 14:52 Dose: 5 sprays Documented by: Senna/Docusate Sodium (Senna Plus) 1 tab PO BID [facility] Last Admin: 07/17/20 07:34 Dose: 1 tab Documented by: Senna/Docusate Sodium (Senna Plus) 1 tab PO DAILY PRN PRN Reason: Constipation Last Admin: 07/15/20 11:25 Dose: 1 tab Documented by: Sodium Chloride (Saline Flush) 10 ml FLUSH ASDIRECTED PRN PRN Reason: Keep Vein Open Last Admin: 07/17/20 05:17 Dose: 10 ml Documented by: Sodium Chloride (Saline Flush) 10 ml FLUSH Q12HR PRN PRN Reason: Keep Vein Open Last Admin: 07/14/20 20:35 Dose: 10 ml Documented by: Discontinued Medications Acetaminophen (Tylenol) 650 mg PO NOW ONE Stop: 07/10/20 11:59 Last Admin: 07/10/20 12:46 Dose: 650 mg Documented by: Albuterol/Ipratropium (Duoneb 3.0-0.5 Mg/3 Ml) 3 ml NEB Q6H [facility] Last Admin: 07/15/20 17:12 Dose: 3 ml Documented by: Amlodipine Besylate (Norvasc) 10 mg PO DAILY [facility] Last Admin: 07/11/20 08:07 Dose: 10 mg Documented by: Ascorbic Acid (Vitamin C) 1,000 mg PO BID [facility] Last Admin: 07/15/20 07:33 Dose: 1,000 mg Documented by: Atorvastatin Calcium (Lipitor) 5 mg PO DAILY [facility] Last Admin: 07/15/20 07:34 Dose: 5 mg Documented by: Cholecalciferol (Vitamin D3) 75 mcg PO DAILY [facility] Last Admin: 07/15/20 07:35 Dose: 75 mcg Documented by: Dexamethasone (Decadron) 6 mg IVPUSH Q24H [facility] Last Admin: 07/14/20 20:36 Dose: 6 mg Documented by: Dextrose/Water (Dextrose 50% In Water) 50 ml IV ASDIRECTED PRN PRN Reason: Hypoglycemia Diltiazem HCl (Diltiazem) 20 mg IVPUSH ONETIME ONE Stop: 07/11/20 09:43 Last Admin: 07/11/20 11:23 Dose: 10 mg Documented by: Diltiazem HCl (Cardizem Cd) 120 mg PO QPM [facility] Last Admin: 07/16/20 17:47 Dose: 120 mg Documented by: Doxycycline Monohydrate (Doxycycline Monohydrate) 100 mg PO ONETIME ONE Stop: 07/10/20 14:52 Last Admin: 07/10/20 17:19 Dose: 100 mg Documented by: Enoxaparin Sodium (Lovenox) 100 mg SUBCUT Q24H [facility] Last Admin: 07/10/20 18:50 Dose: 100 mg Documented by: Famotidine (Pepcid) 40 mg IVPUSH ONETIME ONE Stop: 07/10/20 11:55 Last Admin: 07/10/20 12:46 Dose: 40 mg Documented by: Famotidine (Pepcid) 20 mg IVPUSH Q24H [facility] Last Admin: 07/15/20 11:24 Dose: 20 mg Documented by: Furosemide (Lasix) 40 mg IVPUSH Q8H [facility] Last Admin: 07/12/20 08:07 Dose: 40 mg Documented by: Furosemide (Lasix) 40 mg IVPUSH DAILY [facility] Last Admin: 07/15/20 07:32 Dose: 40 mg Documented by: Glucagon (Glucagen) 1 mg IM ASDIRECTED PRN PRN Reason: Hypoglycemia Guaifenesin/Dextromethorphan (Mucinex Dm Er 600-30 Mg) 1 tab PO BID [facility] Last Admin: 07/15/20 07:34 Dose: 1 tab Documented by: Heparin Sodium (Porcine) (Heparin Sodium) 5,000 units SUBCUT Q8H [facility] Last Admin: 07/17/20 10:03 Dose: Not Given Documented by: Ceftriaxone Sodium 1 gm/ (Sodium Chloride) 100 mls @ 200 mls/hr IV Q12H [facility] Last Admin: 07/10/20 13:56 Dose: 200 mls/hr Documented by: Vancomycin HCl 1.5 gm/ Premix 300 mls @ 200 mls/hr IV Q24H [facility] Last Admin: 07/10/20 20:42 Dose: 200 mls/hr Documented by: Remdesivir 200 mg/ Sodium (Chloride) 290 mls @ 290 mls/hr IV ONETIME ONE Stop: 07/10/20 16:59 Last Admin: 07/10/20 18:27 Dose: 290 mls/hr Documented by: Sodium Chloride (Normal Saline) 250 mls @ 20 mls/hr IV ASDIRECTED [facility] Last Admin: 07/10/20 21:00 Dose: 20 mls/hr Documented by: Ceftriaxone Sodium 1 gm/ (Sodium Chloride) 100 mls @ 200 mls/hr IV Q12H [facility] Last Admin: 07/11/20 00:11 Dose: 200 mls/hr Documented by: Remdesivir 100 mg/ Sodium (Chloride) 270 mls @ 270 mls/hr IV Q24H [facility]1983 Stop: 07/15/20 18:01 Last Admin: 07/14/20 17:45 Dose: 270 mls/hr Documented by: Vancomycin HCl 1.5 gm/ Premix 300 mls @ 200 mls/hr IV Q24H [facility] Vancomycin HCl 1.5 gm/ Premix 300 mls @ 200 mls/hr IV Q24H [facility] Last Admin: 07/10/20 22:23 Dose: Not Given Documented by: Vancomycin HCl 1.5 gm/ Premix 300 mls @ 200 mls/hr IV Q24H [facility] Last Admin: 07/11/20 19:38 Dose: 200 mls/hr Documented by: Ceftriaxone Sodium 1 gm/ (Sodium Chloride) 100 mls @ 200 mls/hr IV Q12H [facility] Last Admin: 07/15/20 12:47 Dose: 200 mls/hr Documented by: Sodium Chloride (Normal Saline) 250 mls @ 20 mls/hr IV ONETIME ONE Stop: 07/12/20 03:29 Last Admin: 07/11/20 14:44 Dose: 20 mls/hr Documented by: Vancomycin HCl 1.5 gm/ Premix 300 mls @ 200 mls/hr IV Q12H [facility] Last Admin: 07/14/20 07:44 Dose: 200 mls/hr Documented by: Insulin Human Lispro (Humalog) 0 unit SUBCUT QIDACANDBED [facility], [facility]; Protocol Last Admin: 07/16/20 11:12 Dose: 12 units Documented by: Iopamidol (Isovue-370 (76%)) 100 ml IVPUSH ONETIME ONE Stop: 07/10/20 15:34 Last Admin: 07/10/20 18:22 Dose: 100 ml Documented by: Potassium Chloride (Klor-Con M20) 20 meq PO TID [facility] Last Admin: 07/12/20 11:50 Dose: 20 meq Documented by: Potassium Chloride (Klor-Con M20) 20 meq PO DAILY [facility] Last Admin: 07/15/20 07:40 Dose: 20 meq Documented by: Temazepam (Restoril) 15 mg PO BEDTIME PRN PRN Reason: Insomnia Last Admin: 07/13/20 23:21 Dose: 15 mg Documented by: Vancomycin HCl (Pharmacy To Dose - Vancomycin) 1 dose .XX ASDIRECTED [facility], [facility] - Exam Quality Assessment: Supplemental Oxygen, DVT Prophylaxis (Subcutaneous sodium heparin change to Eliquis today). No: Central Line/PICC, Urine Catheter, Skin Breakdown, Restraints General: Alert, Oriented (Stable mild confusion), Cooperative, Mild Distress (Secondary to dyspnea) HEENT: Pupils Equal, Pupils Reactive, EOMI, Mucous Membr. Moist/Dent Neck: Supple, Trachea Midline, No JVD, No Thyromegaly, Carotid Bruit (Stable mild bilateral carotid bruits). No: Lymphadenopathy Lungs: Decreased Breath Sounds (Mild diffuse bilateral), Rales (Moderate diffuse bilateral right greater than left), Rhonchi (Mild diffuse bilateral), Wheezing (Mild to moderate diffuse bilateral). No: Rub Cardiovascular: No Murmurs, Irregular Rhythm, Tachycardia. No: Gallops, Rubs GI/Abdominal Exam: Normal Bowel Sounds, Soft, Non-Tender, No Organomegaly, No Distention, No Abnormal Bruit, No Mass, Pelvis Stable, Other (Obese). No: Guarding (Male) Exam: Deferred Back Exam: Normal Inspection, Full Range of Motion. No: CVA Tenderness (L), CVA Tenderness (R), Muscle Spasm Extremities: Normal Range of Motion, Non-Tender, No Pedal Edema, Other (Moderate venous stasis dermatitis in the lower extremities bilaterally). No: Shanta's Sign Peripheral Pulses: 2+: Radial (L), Radial (R), Dorsalis Pedis (L), Dorsalis Pedis (R) Skin: Rash (Stable venous stasis dermatitis in the anterior tibial regions bilaterally), Ecchymosis (Stable moderate bilateral in the upper extremities with no petechiae) Neurological: No New Focal Deficit, Other (Stable mild confusion with additional mild sedation possibly secondary to morphine therapy; stable mild resting tremor, rigidity, and cogwheeling) Psy/Mental Status: Other (Mild sedation as above). No: Agitated, Hallucinations, Withdrawal Symptoms #1 Interpretation EKG Date: 07/17/20 Time: 01:10 Rhythm: A-Flutter (With variable AV block and resolution of previous 2:1 AV block) Rate (Beats/Min): 110 Cope: Normal (Left cardiac access) P-Wave: Variable QRS: Normal (0.09 seconds) ST-T: Normal QT: Normal SD/PQ Interval: Variable Comparison: Change From Previous EKG (As above since 07/10/2020) EKG Interpretation Comments: 1. No acute ischemic changes 2. Atrial flutter with improved tachycardia Sepsis Event Note - Evaluation Sepsis Screening Result: No Definite Risk - Focused Exam Vital Signs: Vital Signs Temp Pulse Resp BP BP Pulse Ox 07/17/20 07:41 36.5 C 108 H 20 119/73 88 L 07/17/20 07:38 119/73 07/17/20 07:34 119/73 - Problem List & Annotations (1) Pneumonia SNOMED Code(s): 579417859 Code(s): J18.9 - PNEUMONIA, UNSPECIFIED ORGANISM Status: Acute Priority: High Current Visit: Yes Onset Date: 07/10/20 Qualifiers: Pneumonia type: due to Pneumococcus Laterality: bilateral Lung location: unspecified part of lung Qualified Code(s): J13 - Pneumonia due to Streptococcus pneumoniae Annotation/Comment:: Covid-19 and bilateral Streptococcus pneumoniae with initi al sepsis picture. Aspiration may be a component with patient aspirating with liquids, however he is able to swallow his medications without difficulty. The patient refuses thickener for his liquids. His prognosis is extremely poor with patient still requiring high flow oxygen therapy with persistent hypoxia. Extended family consultation with our rn long term care, hospice, and multiple family members yesterday with the patient to receive another 2 days of Zosyn therapy per their request with likely discharge to home on 07/19 under hospice care. Note previous IV vancomycin, IV Rocephin, and oral doxycycline therapy, which was switched to Zosyn during later phases of this hospitalization. No significant diarrhea or evidence of C. difficile colitis. Secondary to extensive antibiotic therapy as above the patient will likely not need to be discharged on antibiotics. Long-term prognosis is extremely poor with Zoom meeting to be held on 07/16 as above. Patient did complete his IV remdesivir and IV Decadron on 07/18. Emotional support was provided to the patient. (2) COVID-19 SNOMED Code(s): 459377232 Code(s): U07.1 - COVID-19 Status: Acute Priority: High Current Visit: Yes Onset Date: ~07/01/20 Annotation/Comment:: COVID-19 positive on 07/01/2020. The patient continues to require O2 with initial treatment with 100% O2 by nonrebreather mask, which was later switched to high flow nasal cannula therapy for his comfort. The patient was treated with IV dexamethasone/Remdesivir and received convalescent plasma on 07/11. A follow-up COVID-19 rapid test at discharge would likely be of little value secondary to patient's persistent significant respiratory symptoms and no studies having been performed to this point concerning the infectious nature of end-stage long-term COVID-19 patients. If the family does request a repeat evaluation prior to discharge, continuation of strict quarantine, mask, etc. use is strongly recommended even if this test is negative. (3) Need for comfort care SNOMED Code(s): 227233819, 302726825 Code(s): UDE2517 - Status: Acute Priority: High Current Visit: Yes Annotation/Comment:: Family considering Hospice care. DNR/DNI. Family and patient did not wish to be considered for transfer to [place] during this hospitalization. (4) Elevated lactic acid level SNOMED Code(s): 0546779 Code(s): R79.89 - OTHER SPECIFIED ABNORMAL FINDINGS OF BLOOD CHEMISTRY Status: Acute Priority: High Current Visit: Yes Onset Date: 07/10/20 Annotation/Comment:: Sepsis protocol initiated, including IV antibiotics as above. Follow-up lactic acid levels on 07/10 and 07/11 were normal. (5) CHF (congestive heart failure) SNOMED Code(s): 96021357 Code(s): I50.9 - HEART FAILURE, UNSPECIFIED Status: Acute Priority: High Current Visit: Yes Onset Date: 07/10/20 Qualifiers: Heart failure type: unspecified Heart failure chronicity: acute Qualified Code(s): I50.9 - Heart failure, unspecified Annotation/Comment:: No known previous history of coronary artery disease or CHF. No further work-up, including echocardiogram, etc., secondary to his comfort care status. Previous IV Lasix dose decreased to single daily dose after initial diuresis. Note negative work-up for acute NM during this hospitalization despite persistent atrial flutter. (6) D-dimer, elevated SNOMED Code(s): 713204723 Code(s): R79.89 - OTHER SPECIFIED ABNORMAL FINDINGS OF BLOOD CHEMISTRY Status: Acute Priority: High Current Visit: Yes Onset Date: 07/10/20 Annotation/Comment:: Further work-up per the family's request. Venous Doppler studies of the lower extremities and CTA of the chest were negative for DVT or PE on 07/10/2020. Initiated subcutaneous Lovenox therapy at VTE dose especially in light of current Covid infection on admission, however change to subcutaneous heparin secondary to evidence of anti-inflammatory effect with Covid infection based on studies. Secondary to comfort care and plan discharge to home on hospice the patient was changed from subcutaneous sodium heparin to Eliquis in light of his persistent atrial flutter. (7) Hypoalbuminemia SNOMED Code(s): 891135705 Code(s): E88.09 - [facility] DISORDERS OF PLASMA-PROTEIN METABOLISM, NEC Status: Acute Priority: Medium Current Visit: Yes Onset Date: 07/10/20 Annotation/Comment:: Observe for now (8) Hypocalcemia SNOMED Code(s): 5350799 Code(s): E83.51 - HYPOCALCEMIA Status: Acute Priority: Medium Current Visit: Yes Onset Date: 07/10/20 Annotation/Comment:: Observe for now (9) COPD (chronic obstructive pulmonary disease) SNOMED Code(s): 60958947 Code(s): J44.9 - CHRONIC OBSTRUCTIVE PULMONARY DISEASE, UNSPECIFIED Status: Chronic Priority: High Current Visit: Yes Qualifiers: COPD type: COPD with acute lower respiratory infection Qualified Code(s): J44.0 - Chronic obstructive pulmonary disease with (acute) lower respiratory infection Annotation/Comment:: Patient is in a negative pressure room. DuoNeb nebulizer treatments given during this hospitalization with patient not able to tolerate inhalers initially after admission. He was later changed to Combivent, which the patient did tolerate well during later phases of this hospitalization. 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 Stable mental status despite current infection, however cannot rule out concomitant COVID-19 fog. Note some mild sedation on 07/17 likely secondary to IV morphine, which was requested by the family on 07/16 for patient comfort. Note comfort care as above. (11) Diabetes mellitus SNOMED Code(s): 17672618 Code(s): E11.9 - TYPE 2 DIABETES MELLITUS WITHOUT COMPLICATIONS Status: Chronic Priority: High Current Visit: Yes Qualifiers: Diabetes mellitus type: type 2 Diabetes mellitus exterminator termite insulin use: with exterminator termite use Diabetes mellitus complication status: with neurologic complications Diabetes mellitus complication detail: with polyneuropathy Qualified Code(s): E11.42 - Type 2 diabetes mellitus with diabetic polyneuropathy; Z79.4 - [facility] (current) use of insulin Annotation/Comment:: Humalog sliding scale initiated on admission. Additional Lantus therapy initiated on 07/11. Per the family's request his Accu-Cheks were changed to a twice daily basis on 07/16 with initiation of Humalog Mix sliding scale, which may need to be continued at discharge. Note previous Decadron therapy. Patient's Glucotrol therapy was reinitiated on 07/17. (12) Mixed anxiety depressive disorder SNOMED Code(s): 956862031 Code(s): F41.8 - OTHER SPECIFIED ANXIETY DISORDERS Status: Chronic Priority: Medium Current Visit: Yes Annotation/Comment:: Note history of PTSD. Observe for now. (13) Sleep apnea SNOMED Code(s): 54960596 Code(s): G47.30 - SLEEP APNEA, UNSPECIFIED Status: Chronic Priority: Medium Current Visit: Yes Qualifiers: Sleep apnea type: unspecified type Qualified Code(s): G47.30 - Sleep apnea, unspecified Annotation/Comment:: The patient is no longer using CPAP despite transfer records from the custodial. (14) Atrial flutter SNOMED Code(s): 8759847 Code(s): I48.92 - UNSPECIFIED ATRIAL FLUTTER Status: Acute Priority: High Current Visit: Yes Onset Date: 07/10/20 Qualifiers: Atrial flutter type: atypical Qualified Code(s): I48.4 - Atypical atrial flutter Annotation/Comment:: No chest pain or anginal type symptoms. Note initial Lovenox with subsequent subcu heparin therapy and has been Eliquis therapy as above. Persistent tachycardia on 07/17 although improved with patient's Cardizem CD therapy increased on 07/17. Note previous 2:1 AV conduction anomaly with variable AV conduction on 07/17. (15) Parkinsons disease SNOMED Code(s): 90379805 Code(s): G20 - PARKINSON'S DISEASE Status: Chronic Priority: Medium Current Visit: Yes Annotation/Comment:: Stable during this hospitalization. Note possible parkinsonian dementia as above. - Problem List Review Problem List Initiated/Reviewed/Updated: Yes - My Orders Last 24 Hours: My Active Orders 07/16/20 17:30 Blood Glucose Check, Bedside [RC] BIDAC Insulin Lispro Prot/Lispro [HumaLOG Mix 75-25] See Protocol SUBCUT BIDAC 07/16/20 18:00 H PYLORI STOOL ANTIGEN [MREF] ONETIME 07/16/20 20:32 Ondansetron [Zofran] 4 mg IVPUSH Q6H PRN 07/16/20 20:33 Morphine 2 mg IVPUSH Q2H PRN 07/17/20 05:11 EKG Documentation Completion [RC] ASDIRECTED Chest 1V Frontal [CR] Stat 07/17/20 08:00 glipiZIDE [Glucotrol] 5 mg PO BID 07/17/20 18:00 Diltiazem [Cardizem CD] 180 mg PO QPM - Assessment Assessment:: As above. - Plan Plan:: As above. Probable discharge on 07/19 under hospice care at the patient's home as above. [facility] physician assumes care later today. Note extended hospitalization required secondary to sepsis, IV treatment of his COVID-19, extended IV antibiotic therapy per the family's request, etc. as above. No further follow-up blood work, etc. have been ordered to this point secondary to patient's comfort care and upcoming planned discharge.
[2020-07-17] MEDS: Apixaban 5 MG Tab PO SCH ×2 (11:35→17:20)
[2020-07-17] MEDS: Diltiazem 180 MG Cap.CD PO SCH (17:20)
[2020-07-18] MEDS: Piperacillin/Tazobactam 4.5 GM in Sodium Chloride 0.9% 100 ML IV SCH ×4 (00:17→17:33)
[2020-07-18] MEDS: Sodium Chloride 0.9% 10 ML Syringe FLUSH PRN ×2 (00:19→11:45)
[2020-07-18] MEDS: Acetaminophen 325 MG Tab PO PRN (00:21)
[2020-07-18] MEDS: Prazosin 1 MG Cap PO SCH (07:51)
[2020-07-18] MEDS: Apixaban 5 MG Tab PO SCH ×2 (07:53→17:34)
[2020-07-18] MEDS: Mirtazapine 15 MG Tab PO SCH (07:53)
[2020-07-18] MEDS: Escitalopram 20 MG Tab PO SCH (07:53)
[2020-07-18] MEDS: Albuterol/Ipratropium 4 GM Inhalation Spray INH SCH ×4 (07:53→20:32)
[2020-07-18] MEDS: Finasteride 5 MG Tab PO SCH (07:53)
[2020-07-18] MEDS: Lisinopril 5 MG Tab PO SCH (07:53)
[2020-07-18] MEDS: Carbidopa/Levodopa 25-100 MG Tab PO SCH ×3 (07:53→17:35)
[2020-07-18] MEDS: buPROPion 150 MG Tab.ER PO SCH (07:54)
[2020-07-18] MEDS: glipiZIDE 5 MG Tab PO SCH ×2 (07:54→17:33)
[2020-07-18] MEDS: Insulin Lispro Protamine/Lispro 75-25 100 Units/ML 10 ML Vial SUBCUT SCH ×2 (07:56→17:36)
[2020-07-18] MEDS: Diltiazem 180 MG Cap.CD PO SCH (17:35)
--- NOTE | 2020-07-18 20:14 | PCM.PN ---
- General Info Date of Service: 07/18/20 Subjective Update: Pt with sats of 80% on 10 L This is unchanged Pt awake but sleepy Plan for discharge to home with hospice tomorrow Pt on antibiotics for pneumonia - Review of Systems General: Reports: Weakness Pulmonary: Reports: Shortness of Breath Cardiovascular: Reports: No Symptoms Gastrointestinal: Reports: No Symptoms Genitourinary: Reports: No Symptoms Musculoskeletal: Reports: No Symptoms Neurological: Reports: Confusion - Patient Data Vitals - Most Recent: Last Vital Signs Temp 96 F L 07/18/20 07:55 Pulse 104 H 07/18/20 07:55 Resp 24 H 07/18/20 07:55 BP 144/95 H 07/18/20 07:55 Pulse Ox 81 L 07/18/20 07:55 Weight - Most Recent: 276 lb 15.997 oz I&O - Last 24 Hours: Intake & Output 07/18/20 07/18/20 07/19/20 10:59 18:59 02:59 Intake Total 860 Balance 860 Lab Results Last 24 Hours: Laboratory Results - last 24 hr 07/18/20 07/18/20 Range/Units 07:51 17:28 POC Glucose 222 H 338 H* (65-110) mg/dl Med Orders - Current: Current Medications Acetaminophen (Tylenol) 650 mg PO Q4H PRN PRN Reason: Pain Last Admin: 07/18/20 00:21 Dose: 650 mg Documented by: Albuterol (Proventil Neb Soln) 2.5 mg INH Q2H PRN PRN Reason: SHORTNESS OF BREATH Albuterol/Ipratropium (Duoneb 3.0-0.5 Mg/3 Ml) 3 ml NEB Q4HRRT PRN PRN Reason: Dyspnea Albuterol/Ipratropium (Combivent Respimat) 0 gm INH QID [facility] Last Admin: 07/18/20 16:00 Dose: 1 puff Documented by: Apixaban (Eliquis) 5 mg PO BID [facility] Last Admin: 07/18/20 17:34 Dose: 5 mg Documented by: Bupropion HCl (Wellbutrin Xl) 300 mg PO DAILY [facility] Last Admin: 07/18/20 07:54 Dose: 300 mg Documented by: Carbidopa/Levodopa (Sinemet 25-100 Mg) 1 tab PO TID [facility] Last Admin: 07/18/20 17:35 Dose: 1 tab Documented by: Dextrose/Water (Dextrose 50% In Water) 50 ml IV ASDIRECTED PRN PRN Reason: Hypoglycemia Diltiazem HCl (Cardizem Cd) 180 mg PO QPM [facility] Last Admin: 07/18/20 17:35 Dose: 180 mg Documented by: Escitalopram Oxalate (Lexapro) 10 mg PO DAILY [facility] Last Admin: 07/18/20 07:53 Dose: 10 mg Documented by: Finasteride (Proscar) 5 mg PO DAILY [facility] Last Admin: 07/18/20 07:53 Dose: 5 mg Documented by: Glipizide (Glucotrol) 5 mg PO BID [facility] Last Admin: 07/18/20 17:33 Dose: 5 mg Documented by: Glucagon (Glucagen) 1 mg IM ASDIRECTED PRN PRN Reason: Hypoglycemia Piperacillin Sod/Tazobactam (Sod 4.5 gm/ Sodium Chloride) 100 mls @ 200 mls/hr IV Q6H [facility] Last Admin: 07/18/20 17:33 Dose: 200 mls/hr Documented by: Insulin Lispro Protam/Lispro Human (Humalog Mix 75-25) 0 unit SUBCUT BIDAC [facility]; Protocol Last Admin: 07/18/20 17:36 Dose: 8 units Documented by: Lisinopril (Prinivil) 2.5 mg PO DAILY [facility] Last Admin: 07/18/20 07:53 Dose: 2.5 mg Documented by: Mirtazapine (Remeron) 15 mg PO DAILY [facility] Last Admin: 07/18/20 07:53 Dose: 15 mg Documented by: Morphine Sulfate (Morphine) 2 mg IVPUSH Q2H PRN PRN Reason: Shortness of Breath Last Admin: 07/16/20 20:41 Dose: 2 mg Documented by: Ondansetron HCl (Zofran) 4 mg IVPUSH Q6H PRN PRN Reason: Nausea/Vomiting Last Admin: 07/16/20 20:41 Dose: 4 mg Documented by: Prazosin HCl (Minpress) 1 mg PO DAILY [facility] Last Admin: 07/18/20 07:51 Dose: 1 mg Documented by: Saliva Substitute (Wild-Stir Oral [place]) 1 ml MUCMEM ASDIRECTED PRN PRN Reason: Other Last Admin: 07/11/20 14:52 Dose: 5 sprays Documented by: Senna/Docusate Sodium (Senna Plus) 1 tab PO BID [facility] Last Admin: 07/18/20 17:35 Dose: Not Given Documented by: Senna/Docusate Sodium (Senna Plus) 1 tab PO DAILY PRN PRN Reason: Constipation Last Admin: 07/15/20 11:25 Dose: 1 tab Documented by: Sodium Chloride (Saline Flush) 10 ml FLUSH ASDIRECTED PRN PRN Reason: Keep Vein Open Last Admin: 07/18/20 11:45 Dose: 10 ml Documented by: Sodium Chloride (Saline Flush) 10 ml FLUSH Q12HR PRN PRN Reason: Keep Vein Open Last Admin: 07/14/20 20:35 Dose: 10 ml Documented by: Discontinued Medications Acetaminophen (Tylenol) 650 mg PO NOW ONE Stop: 07/10/20 11:59 Last Admin: 07/10/20 12:46 Dose: 650 mg Documented by: Albuterol/Ipratropium (Duoneb 3.0-0.5 Mg/3 Ml) 3 ml NEB Q6H [facility] Last Admin: 07/15/20 17:12 Dose: 3 ml Documented by: Amlodipine Besylate (Norvasc) 10 mg PO DAILY [facility] Last Admin: 07/11/20 08:07 Dose: 10 mg Documented by: Ascorbic Acid (Vitamin C) 1,000 mg PO BID [facility] Last Admin: 07/15/20 07:33 Dose: 1,000 mg Documented by: Atorvastatin Calcium (Lipitor) 5 mg PO DAILY [facility] Last Admin: 07/15/20 07:34 Dose: 5 mg Documented by: Cholecalciferol (Vitamin D3) 75 mcg PO DAILY [facility] Last Admin: 07/15/20 07:35 Dose: 75 mcg Documented by: Dexamethasone (Decadron) 6 mg IVPUSH Q24H [facility] Last Admin: 07/14/20 20:36 Dose: 6 mg Documented by: Dextrose/Water (Dextrose 50% In Water) 50 ml IV ASDIRECTED PRN PRN Reason: Hypoglycemia Diltiazem HCl (Diltiazem) 20 mg IVPUSH ONETIME ONE Stop: 07/11/20 09:43 Last Admin: 07/11/20 11:23 Dose: 10 mg Documented by: Diltiazem HCl (Cardizem Cd) 120 mg PO QPM [facility] Last Admin: 07/16/20 17:47 Dose: 120 mg Documented by: Doxycycline Monohydrate (Doxycycline Monohydrate) 100 mg PO ONETIME ONE Stop: 07/10/20 14:52 Last Admin: 07/10/20 17:19 Dose: 100 mg Documented by: Enoxaparin Sodium (Lovenox) 100 mg SUBCUT Q24H [facility] Last Admin: 07/10/20 18:50 Dose: 100 mg Documented by: Famotidine (Pepcid) 40 mg IVPUSH ONETIME ONE Stop: 07/10/20 11:55 Last Admin: 07/10/20 12:46 Dose: 40 mg Documented by: Famotidine (Pepcid) 20 mg IVPUSH Q24H [facility] Last Admin: 07/15/20 11:24 Dose: 20 mg Documented by: Furosemide (Lasix) 40 mg IVPUSH Q8H [facility] Last Admin: 07/12/20 08:07 Dose: 40 mg Documented by: Furosemide (Lasix) 40 mg IVPUSH DAILY [facility] Last Admin: 07/15/20 07:32 Dose: 40 mg Documented by: Glucagon (Glucagen) 1 mg IM ASDIRECTED PRN PRN Reason: Hypoglycemia Guaifenesin/Dextromethorphan (Mucinex Dm Er 600-30 Mg) 1 tab PO BID [facility] Last Admin: 07/15/20 07:34 Dose: 1 tab Documented by: Heparin Sodium (Porcine) (Heparin Sodium) 5,000 units SUBCUT Q8H [facility] Last Admin: 07/17/20 10:03 Dose: Not Given Documented by: Ceftriaxone Sodium 1 gm/ (Sodium Chloride) 100 mls @ 200 mls/hr IV Q12H [facility] Last Admin: 07/10/20 13:56 Dose: 200 mls/hr Documented by: Vancomycin HCl 1.5 gm/ Premix 300 mls @ 200 mls/hr IV Q24H [facility] Last Admin: 07/10/20 20:42 Dose: 200 mls/hr Documented by: Remdesivir 200 mg/ Sodium (Chloride) 290 mls @ 290 mls/hr IV ONETIME ONE Stop: 07/10/20 16:59 Last Admin: 07/10/20 18:27 Dose: 290 mls/hr Documented by: Sodium Chloride (Normal Saline) 250 mls @ 20 mls/hr IV ASDIRECTED [facility] Last Admin: 07/10/20 21:00 Dose: 20 mls/hr Documented by: Ceftriaxone Sodium 1 gm/ (Sodium Chloride) 100 mls @ 200 mls/hr IV Q12H [facility] Last Admin: 07/11/20 00:11 Dose: 200 mls/hr Documented by: Remdesivir 100 mg/ Sodium (Chloride) 270 mls @ 270 mls/hr IV Q24H [facility] Stop: 07/15/20 18:01 Last Admin: 07/14/20 17:45 Dose: 270 mls/hr Documented by: Vancomycin HCl 1.5 gm/ Premix 300 mls @ 200 mls/hr IV Q24H [facility] Vancomycin HCl 1.5 gm/ Premix 300 mls @ 200 mls/hr IV Q24H [facility] Last Admin: 07/10/20 22:23 Dose: Not Given Documented by: Vancomycin HCl 1.5 gm/ Premix 300 mls @ 200 mls/hr IV Q24H [facility] Last Admin: 07/11/20 19:38 Dose: 200 mls/hr Documented by: Ceftriaxone Sodium 1 gm/ (Sodium Chloride) 100 mls @ 200 mls/hr IV Q12H [facility] Last Admin: 07/15/20 12:47 Dose: 200 mls/hr Documented by: Sodium Chloride (Normal Saline) 250 mls @ 20 mls/hr IV ONETIME ONE Stop: 07/12/20 03:29 Last Admin: 07/11/20 14:44 Dose: 20 mls/hr Documented by: Vancomycin HCl 1.5 gm/ Premix 300 mls @ 200 mls/hr IV Q12H [facility] Last Admin: 07/14/20 07:44 Dose: 200 mls/hr Documented by: Insulin Glargine (Lantus) 6 unit SUBCUT Q12HR [facility] Last Admin: 07/17/20 07:40 Dose: 6 units Documented by: Insulin Human Lispro (Humalog) 0 unit SUBCUT QIDACANDBED [facility]; Protocol Last Admin: 07/16/20 11:12 Dose: 12 units Documented by: Iopamidol (Isovue-370 (76%)) 100 ml IVPUSH ONETIME ONE Stop: 07/10/20 15:34 Last Admin: 07/10/20 18:22 Dose: 100 ml Documented by: Potassium Chloride (Klor-Con M20) 20 meq PO TID [facility] Last Admin: 07/12/20 11:50 Dose: 20 meq Documented by: Potassium Chloride (Klor-Con M20) 20 meq PO DAILY [facility] Last Admin: 07/15/20 07:40 Dose: 20 meq Documented by: Temazepam (Restoril) 15 mg PO BEDTIME PRN PRN Reason: Insomnia Last Admin: 07/13/20 23:21 Dose: 15 mg Documented by: Vancomycin HCl (Pharmacy To Dose - Vancomycin) 1 dose .XX ASDIRECTED [facility] - Exam Quality Assessment: Supplemental Oxygen Lungs: Decreased Breath Sounds, Wheezing Cardiovascular: Regular Rate GI/Abdominal Exam: Soft Neurological: Other (Slow to respond) Sepsis Event Note - Evaluation Sepsis Screening Result: No Definite Risk - Problem List Review Problem List Initiated/Reviewed/Updated: Yes - Assessment Assessment:: As above. As above - Plan Plan:: As above. Probable discharge on 07/19 under hospice care at the patient's home as above. [facility] physician assumes care later today. Note extended hospitalization required secondary to sepsis, IV treatment of his COVID-19, extended IV antibiotic therapy per the family's request, etc. as above. No further follow-up blood work, etc. have been ordered to this point secondary to patient's comfort care and upcoming planned discharge. Continue cares
[2020-07-19] MEDS: Piperacillin/Tazobactam 4.5 GM in Sodium Chloride 0.9% 100 ML IV SCH ×2 (00:06→05:37)
[2020-07-19] MEDS: Nystatin Topical Powder 15 GM Bottle TOP SCH ×2 (00:07→08:25)
[2020-07-19] MEDS: Sodium Chloride 0.9% 10 ML Syringe FLUSH PRN ×2 (00:08→05:43)
[2020-07-19] MEDS: glipiZIDE 5 MG Tab PO SCH (08:03)
[2020-07-19] MEDS: Apixaban 5 MG Tab PO SCH (08:03)
[2020-07-19] MEDS: Escitalopram 20 MG Tab PO SCH (08:04)
[2020-07-19] MEDS: Finasteride 5 MG Tab PO SCH (08:04)
[2020-07-19] MEDS: Carbidopa/Levodopa 25-100 MG Tab PO SCH (08:04)
[2020-07-19] MEDS: buPROPion 150 MG Tab.ER PO SCH (08:05)
[2020-07-19] MEDS: Prazosin 1 MG Cap PO SCH (08:13)
[2020-07-19] MEDS: Lisinopril 5 MG Tab PO SCH (08:18)
[2020-07-19] MEDS: Albuterol/Ipratropium 4 GM Inhalation Spray INH SCH (08:26)
[2020-07-19] MEDS: Insulin Lispro Protamine/Lispro 75-25 100 Units/ML 10 ML Vial SUBCUT SCH (08:26)
--- NOTE | 2020-07-19 10:39 | PCM.DCSUM1 ---
Discharge Summary - Hospital Course Free Text/Narrative:: Pt with Covid diagnosis Pt is to be discharged to home on oxygen per family request Hospice to assume care after discharge Hospice consult placed Brief History: Pt admitted with Covid Pt has had general downhill course Family desires discharge to home on oxygen with hospice care Diagnosis: Stroke: No - Discharge Data Discharge Date: 07/19/20 Discharge Disposition: Home, Self-Care 01 Condition: Poor - Referral to Home Health Primary Care Physician: Michelle Padron PA-C - Discharge Diagnosis/Problem(s) (1) Atrial flutter SNOMED Code(s): 4390697 ICD Code: I48.92 - UNSPECIFIED ATRIAL FLUTTER Status: Acute Priority: High Current Visit: Yes Onset Date: 07/10/20 Problem Details: No chest pain or anginal type symptoms. Note initial Lovenox with subsequent subcu heparin therapy and has been Eliquis therapy as above. Persistent tachycardia on 07/17 although improved with patient's Cardizem CD therapy increased on 07/17. Note previous 2:1 AV conduction anomaly with variable AV conduction on 07/17. Qualifiers: Atrial flutter type: atypical Qualified Code(s): I48.4 - Atypical atrial flutter (2) CHF (congestive heart failure) SNOMED Code(s): 98663782 ICD Code: I50.9 - HEART FAILURE, UNSPECIFIED Status: Acute Priority: High Current Visit: Yes Onset Date: 07/10/20 Problem Details: No known previous history of coronary artery disease or CHF. No further work-up, including echocardiogram, etc., secondary to his comfort care status. Previous IV Lasix dose decreased to single daily dose after initial diuresis. Note negative work- up for acute AK during this hospitalization despite persistent atrial flutter. Qualifiers: Heart failure type: unspecified Heart failure chronicity: acute Qualified Code(s): I50.9 - Heart failure, unspecified (3) COVID-19 SNOMED Code(s): 097358070 ICD Code: U07.1 - COVID-19 Status: Acute Priority: High Current Visit: Yes Onset Date: ~07/01/20 Problem Details: COVID-19 positive on 07/01/2020. The patient continues to require O2 with initial treatment with 100% O2 by nonrebreather mask, which was later switched to high flow nasal cannula therapy for his comfort. The patient was treated with IV dexamethasone/Remdesivir and received convalescent plasma on 07/11. A follow-up COVID-19 rapid test at discharge would likely be of little value secondary to patient's persistent significant respiratory symptoms and no studies having been performed to this point concerning the infectious nature of end-stage long-term COVID-19 patients. If the family does request a repeat evaluation prior to discharge, continuation of strict quarantine, mask, etc. use is strongly recommended even if this test is negative. Pt to be discharged on home oxygen at 12 L and monitor by Hospice - Patient Summary/Data Consults: Consultations 07/12/20 14:00 OT Evaluation and Treatment [CONS] Routine PT Evaluation and Treatment [CONS] Routine 07/15/20 16:36 Consult to Hospice [CONS] Routine - Patient Instructions Diet: Usual Diet as Tolerated Activity: Bedrest, May Use Bathroom Driving: Do Not Drive Notify Provider of: Increased Pain - Discharge Plan *PRESCRIPTION DRUG MONITORING PROGRAM REVIEWED*: Not Applicable *COPY OF PRESCRIPTION DRUG MONITORING REPORT IN PATIENT AUSTEN: Not Applicable Home Medications: Home Meds Acetaminophen [Tylenol] 650 mg PO Q4HR PRN 07/10/20 [History] Ascorbic Acid [Vitamin C] 1,000 mg PO BID 07/10/20 [History] Aspirin [Halfprin] 81 mg PO DAILY 07/10/20 [History] Carbidopa/Levodopa [Carbidopa-Levodopa 25-100] 1 tab PO TID 07/10/20 [History] Cholecalciferol (Vitamin D3) [Vitamin D3] 3,000 unit PO DAILY 07/10/20 [History] Escitalopram [Lexapro] 10 mg PO DAILY 07/10/20 [History] Finasteride 5 mg PO DAILY 07/10/20 [History] Liraglutide [Victoza] 1.8 mg SUBCUT DAILY 07/10/20 [History] Lovastatin 10 mg PO DAILY 07/10/20 [History] Mirtazapine 15 mg PO DAILY 07/10/20 [History] Prazosin [Minpress] 1 mg PO DAILY 07/10/20 [History] amLODIPine [Norvasc] 10 mg PO DAILY 07/10/20 [History] buPROPion HCL [Bupropion Xl] 300 mg PO DAILY 07/10/20 [History] dexAMETHasone [Decadron] 6 mg PO DAILY@199907/10/20 [History] glipiZIDE [Glucotrol] 5 mg PO BID 07/10/20 [History] lisinopriL [Lisinopril] 2.5 mg PO DAILY 07/10/20 [History] Forms: ED Department Discharge Referrals: Michelle Padron PA-C [Primary Care Provider] - - Discharge Summary/Plan Comment DC Time >30 min.: No - General Info Date of Service: 07/19/20 Subjective Update: Resting quietly Oxygen now at 12 L - Review of Systems General: Reports: Weakness HEENT: Reports: No Symptoms Pulmonary: Reports: Shortness of Breath Cardiovascular: Reports: No Symptoms Gastrointestinal: Reports: No Symptoms - Patient Data Vitals - Most Recent: Last Vital Signs Temp 97.6 F 07/19/20 08:00 Pulse 120 H 07/19/20 08:00 Resp 32 H 07/19/20 08:00 BP 106/66 07/19/20 08:18 Pulse Ox 91 L 07/19/20 08:00 Weight - Most Recent: 276 lb 15.997 oz I&O - Last 24 hours: Intake & Output 07/18/20 07/19/20 07/19/20 18:59 02:59 10:59 Intake Total 120 400 Balance 120 400 Lab Results - Last 24 hrs: Laboratory Results - last 24 hr 07/18/20 07/19/20 Range/Units 17:28 07:49 POC Glucose 338 H* 141 H (65-110) mg/dl Med Orders - Current: Current Medications Acetaminophen (Tylenol) 650 mg PO Q4H PRN PRN Reason: Pain Last Admin: 07/18/20 00:21 Dose: 650 mg Documented by: Albuterol (Proventil Neb Soln) 2.5 mg INH Q2H PRN PRN Reason: SHORTNESS OF BREATH Albuterol/Ipratropium (Duoneb 3.0-0.5 Mg/3 Ml) 3 ml NEB Q4HRRT PRN PRN Reason: Dyspnea Albuterol/Ipratropium (Combivent Respimat) 0 gm INH QID [facility] Last Admin: 07/19/20 08:26 Dose: 1 puff Documented by: Apixaban (Eliquis) 5 mg PO BID [facility] Last Admin: 07/19/20 08:03 Dose: 5 mg Documented by: Bupropion HCl (Wellbutrin Xl) 300 mg PO DAILY [facility] Last Admin: 07/19/20 08:05 Dose: 300 mg Documented by: Carbidopa/Levodopa (Sinemet 25-100 Mg) 1 tab PO TID [facility] Last Admin: 07/19/20 08:04 Dose: 1 tab Documented by: Dextrose/Water (Dextrose 50% In Water) 50 ml IV ASDIRECTED PRN PRN Reason: Hypoglycemia Diltiazem HCl (Cardizem Cd) 180 mg PO QPM [facility] Last Admin: 07/18/20 17:35 Dose: 180 mg Documented by: Escitalopram Oxalate (Lexapro) 10 mg PO DAILY [facility] Last Admin: 07/19/20 08:04 Dose: 10 mg Documented by: Finasteride (Proscar) 5 mg PO DAILY [facility] Last Admin: 07/19/20 08:04 Dose: 5 mg Documented by: Glipizide (Glucotrol) 5 mg PO BID [facility] Last Admin: 07/19/20 08:03 Dose: 5 mg Documented by: Glucagon (Glucagen) 1 mg IM ASDIRECTED PRN PRN Reason: Hypoglycemia Piperacillin Sod/Tazobactam (Sod 4.5 gm/ Sodium Chloride) 100 mls @ 200 mls/hr IV Q6H [facility] Last Admin: 07/19/20 05:37 Dose: 200 mls/hr Documented by: Insulin Lispro Protam/Lispro Human (Humalog Mix 75-25) 0 unit SUBCUT BIDAC [facility]; Protocol Last Admin: 07/19/20 08:26 Dose: Not Given Documented by: Lisinopril (Prinivil) 2.5 mg PO DAILY [facility] Last Admin: 07/19/20 08:18 Dose: 2.5 mg Documented by: Mirtazapine (Remeron) 15 mg PO DAILY [facility] Last Admin: 07/18/20 07:53 Dose: 15 mg Documented by: Morphine Sulfate (Morphine) 2 mg IVPUSH Q2H PRN PRN Reason: Shortness of Breath Last Admin: 07/16/20 20:41 Dose: 2 mg Documented by: Nystatin (Nystop) 1 gm TOP TID@00,08,16 [facility] Last Admin: 07/19/20 08:25 Dose: 1 applic Documented by: Ondansetron HCl (Zofran) 4 mg IVPUSH Q6H PRN PRN Reason: Nausea/Vomiting Last Admin: 07/16/20 20:41 Dose: 4 mg Documented by: Prazosin HCl (Minpress) 1 mg PO DAILY [facility] Last Admin: 07/19/20 08:13 Dose: 1 mg Documented by: Saliva Substitute (Wild-Stir Oral [place]) 1 ml MUCMEM ASDIRECTED PRN PRN Reason: Other Last Admin: 07/11/20 14:52 Dose: 5 sprays Documented by: Senna/Docusate Sodium (Senna Plus) 1 tab PO BID [facility] Last Admin: 07/18/20 17:35 Dose: Not Given Documented by: Senna/Docusate Sodium (Senna Plus) 1 tab PO DAILY PRN PRN Reason: Constipation Last Admin: 07/15/20 11:25 Dose: 1 tab Documented by: Sodium Chloride (Saline Flush) 10 ml FLUSH ASDIRECTED PRN PRN Reason: Keep Vein Open Last Admin: 07/19/20 05:43 Dose: 10 ml Documented by: Sodium Chloride (Saline Flush) 10 ml FLUSH Q12HR PRN PRN Reason: Keep Vein Open Last Admin: 07/14/20 20:35 Dose: 10 ml Documented by: Discontinued Medications Acetaminophen (Tylenol) 650 mg PO NOW ONE Stop: 07/10/20 11:59 Last Admin: 07/10/20 12:46 Dose: 650 mg Documented by: Albuterol/Ipratropium (Duoneb 3.0-0.5 Mg/3 Ml) 3 ml NEB Q6H [facility] Last Admin: 07/15/20 17:12 Dose: 3 ml Documented by: Amlodipine Besylate (Norvasc) 10 mg PO DAILY [facility] Last Admin: 07/11/20 08:07 Dose: 10 mg Documented by: Ascorbic Acid (Vitamin C) 1,000 mg PO BID [facility] Last Admin: 07/15/20 07:33 Dose: 1,000 mg Documented by: Atorvastatin Calcium (Lipitor) 5 mg PO DAILY [facility] Last Admin: 07/15/20 07:34 Dose: 5 mg Documented by: Cholecalciferol (Vitamin D3) 75 mcg PO DAILY [facility] Last Admin: 07/15/20 07:35 Dose: 75 mcg Documented by: Dexamethasone (Decadron) 6 mg IVPUSH Q24H [facility] Last Admin: 07/14/20 20:36 Dose: 6 mg Documented by: Dextrose/Water (Dextrose 50% In Water) 50 ml IV ASDIRECTED PRN PRN Reason: Hypoglycemia Diltiazem HCl (Diltiazem) 20 mg IVPUSH ONETIME ONE Stop: 07/11/20 09:43 Last Admin: 07/11/20 11:23 Dose: 10 mg Documented by: Diltiazem HCl (Cardizem Cd) 120 mg PO QPM [facility] Last Admin: 07/16/20 17:47 Dose: 120 mg Documented by: Doxycycline Monohydrate (Doxycycline Monohydrate) 100 mg PO ONETIME ONE Stop: 07/10/20 14:52 Last Admin: 07/10/20 17:19 Dose: 100 mg Documented by: Enoxaparin Sodium (Lovenox) 100 mg SUBCUT Q24H [facility] Last Admin: 07/10/20 18:50 Dose: 100 mg Documented by: Famotidine (Pepcid) 40 mg IVPUSH ONETIME ONE Stop: 07/10/20 11:55 Last Admin: 07/10/20 12:46 Dose: 40 mg Documented by: Famotidine (Pepcid) 20 mg IVPUSH Q24H [facility] Last Admin: 07/15/20 11:24 Dose: 20 mg Documented by: Furosemide (Lasix) 40 mg IVPUSH Q8H [facility] Last Admin: 07/12/20 08:07 Dose: 40 mg Documented by: Furosemide (Lasix) 40 mg IVPUSH DAILY [facility] Last Admin: 07/15/20 07:32 Dose: 40 mg Documented by: Glucagon (Glucagen) 1 mg IM ASDIRECTED PRN PRN Reason: Hypoglycemia Guaifenesin/Dextromethorphan (Mucinex Dm Er 600-30 Mg) 1 tab PO BID [facility] Last Admin: 07/15/20 07:34 Dose: 1 tab Documented by: Heparin Sodium (Porcine) (Heparin Sodium) 5,000 units SUBCUT Q8H [facility] Last Admin: 07/17/20 10:03 Dose: Not Given Documented by: Ceftriaxone Sodium 1 gm/ (Sodium Chloride) 100 mls @ 200 mls/hr IV Q12H [facility] Last Admin: 07/10/20 13:56 Dose: 200 mls/hr Documented by: Vancomycin HCl 1.5 gm/ Premix 300 mls @ 200 mls/hr IV Q24H [facility] Last Admin: 07/10/20 20:42 Dose: 200 mls/hr Documented by: Remdesivir 200 mg/ Sodium (Chloride) 290 mls @ 290 mls/hr IV ONETIME ONE Stop: 07/10/20 16:59 Last Admin: 07/10/20 18:27 Dose: 290 mls/hr Documented by: Sodium Chloride (Normal Saline) 250 mls @ 20 mls/hr IV ASDIRECTED [facility] Last Admin: 07/10/20 21:00 Dose: 20 mls/hr Documented by: Ceftriaxone Sodium 1 gm/ (Sodium Chloride) 100 mls @ 200 mls/hr IV Q12H [facility] Last Admin: 07/11/20 00:11 Dose: 200 mls/hr Documented by: Remdesivir 100 mg/ Sodium (Chloride) 270 mls @ 270 mls/hr IV Q24H [facility] Stop: 07/15/20 18:01 Last Admin: 07/14/20 17:45 Dose: 270 mls/hr Documented by: Vancomycin HCl 1.5 gm/ Premix 300 mls @ 200 mls/hr IV Q24H [facility] Vancomycin HCl 1.5 gm/ Premix 300 mls @ 200 mls/hr IV Q24H [facility] Last Admin: 07/10/20 22:23 Dose: Not Given Documented by: Vancomycin HCl 1.5 gm/ Premix 300 mls @ 200 mls/hr IV Q24H [facility] Last Admin: 07/11/20 19:38 Dose: 200 mls/hr Documented by: Ceftriaxone Sodium 1 gm/ (Sodium Chloride) 100 mls @ 200 mls/hr IV Q12H [facility] Last Admin: 07/15/20 12:47 Dose: 200 mls/hr Documented by: Sodium Chloride (Normal Saline) 250 mls @ 20 mls/hr IV ONETIME ONE Stop: 07/12/20 03:29 Last Admin: 07/11/20 14:44 Dose: 20 mls/hr Documented by: Vancomycin HCl 1.5 gm/ Premix 300 mls @ 200 mls/hr IV Q12H [facility] Last Admin: 07/14/20 07:44 Dose: 200 mls/hr Documented by: Insulin Glargine (Lantus) 6 unit SUBCUT Q12HR [facility] Last Admin: 07/17/20 07:40 Dose: 6 units Documented by: Insulin Human Lispro (Humalog) 0 unit SUBCUT QIDACANDBED [facility]; Protocol Last Admin: 07/16/20 11:12 Dose: 12 units Documented by: Iopamidol (Isovue-370 (76%)) 100 ml IVPUSH ONETIME ONE Stop: 07/10/20 15:34 Last Admin: 07/10/20 18:22 Dose: 100 ml Documented by: Potassium Chloride (Klor-Con M20) 20 meq PO TID [facility] Last Admin: 07/12/20 11:50 Dose: 20 meq Documented by: Potassium Chloride (Klor-Con M20) 20 meq PO DAILY [facility] Last Admin: 07/15/20 07:40 Dose: 20 meq Documented by: Temazepam (Restoril) 15 mg PO BEDTIME PRN PRN Reason: Insomnia Last Admin: 07/13/20 23:21 Dose: 15 mg Documented by: Vancomycin HCl (Pharmacy To Dose - Vancomycin) 1 dose .XX ASDIRECTED TANNER - Exam Quality Assessment: Reports: Supplemental Oxygen General: Reports: Lethargic Neck: Reports: Supple Lungs: Reports: Decreased Breath Sounds, Wheezing Cardiovascular: Reports: Regular Rate GI/Abdominal Exam: Soft
[2020-07-19] MEDS: Mirtazapine 15 MG Tab PO SCH (12:32)
== END 2020-07-19 11:50 | disposition hospice, home (50) | DRG 720 ==
LOC: LL.ED 11:34 → UNDOADMIN 14:24 → LL.MS 14:24
PROVIDERS: ADMIT Family Medicine; ATTEND Family Medicine
PROC: 8E0ZXY6 Isolation (ICD-10-PCS; principal; 2020-07-10)
PROC: XW033E5 Introduction of Remdesivir Anti-infective into Peripheral Vein, Percutaneous Approach, New Technology Group 5 (ICD-10-PCS; 2020-07-10)
PROC: XW13325 Transfusion of Convalescent Plasma (Nonautologous) into Peripheral Vein, Percutaneous Approach, New Technology Group 5 (ICD-10-PCS; 2020-07-11)
DX: A40.3 Sepsis due to Streptococcus pneumoniae (principal); U07.1 COVID-19; J13 Pneumonia due to Streptococcus pneumoniae; J12.89 Other viral pneumonia; J44.0 Chronic obstructive pulmonary disease with (acute) lower respiratory infection; I48.4 Atypical atrial flutter; H91.90 Unspecified hearing loss, unspecified ear; H54.7 Unspecified visual loss; E78.00 Pure hypercholesterolemia, unspecified; I11.0 Hypertensive heart disease with heart failure; G47.30 Sleep apnea, unspecified; N40.1 Benign prostatic hyperplasia with lower urinary tract symptoms; R33.8 Other retention of urine; R32 Unspecified urinary incontinence; G30.9 Alzheimer's disease, unspecified; F02.80 Dementia in other diseases classified elsewhere, unspecified severity, without behavioral disturbance, psychotic disturbance, mood disturbance, and anxiety; G20 Parkinson's disease; F43.10 Post-traumatic stress disorder, unspecified; M54.9 Dorsalgia, unspecified; G89.29 Other chronic pain; M19.90 Unspecified osteoarthritis, unspecified site; E11.9 Type 2 diabetes mellitus without complications; Z96.649 Presence of unspecified artificial hip joint; I50.9 Heart failure, unspecified; Z51.5 Encounter for palliative care; E88.09 Other disorders of plasma-protein metabolism, not elsewhere classified; E83.51 Hypocalcemia; F41.8 Other specified anxiety disorders; R79.89 Other specified abnormal findings of blood chemistry; Z79.4 Long term (current) use of insulin; Z88.8 Allergy status to other drugs, medicaments and biological substances; Z79.82 Long term (current) use of aspirin; Z79.899 Other long term (current) drug therapy; Z98.49 Cataract extraction status, unspecified eye
CPT/HCPCS: 36415; 36430; 51702; 71045; 71275; 80048; 80053; 80061; 80202; 81001; 82272; 82550; 82553; 82962; 83036; 83605; 83735; 83880; 84443; 84484; 84550; 85025; 85379; 85610; 85730; 86140; 86900; 86901; 87040; 87077; 87086; 87338; 87804; 93005; 93970; 94640; 96365; 96375; 97163-GP; 99285-25; A9270-GY; J0696; J1100; J1644; J1650; J1815-GY; J1940; J2270; J2405; J2543; J3370; J3490; J7050; J7620-GY; P9017; Q9967